=== PATIENT | female | born 1995 | race African-American/Black ===

== ENCOUNTER 2021-01-28 10:17 | Outpatient (RCR) | payer BC, SELFPAY ==
[2021-01-26 10:52] LABS: Beta HCG Quantitative 239.98 mIU/ML
== END 2021-04-26 23:59 | disposition home or self-care (01) ==
LOC: ANHLAB 10:17
PROVIDERS: PCP Family Medicine; Visit Provider Obstetrics & Gynecology
DX: O20.0 Threatened abortion (principal); Z3A.00 Weeks of gestation of pregnancy not specified
CPT/HCPCS: 36415; 84702; 85461

== ENCOUNTER 2021-02-28 13:09 | Outpatient (CLI) | payer BC, SELFPAY ==
[2021-02-28 13:29] LABS: EDCOVIDSCREEN Negative (Negative)
== END 2021-02-28 13:10 | disposition home or self-care (01) ==
LOC: ANHSURGERY 13:10
PROVIDERS: PCP Family Medicine; Visit Provider Obstetrics & Gynecology
DX: Z01.812 Encounter for preprocedural laboratory examination (principal); Z20.822 Contact with and (suspected) exposure to COVID-19
CPT/HCPCS: 87426; C9803

== ENCOUNTER 2021-03-01 01:41 | Day surgery (SDC) | payer BC, SELFPAY ==
[2021-02-28 09:34] VITALS: BMI 23.3
--- NOTE | 2021-03-01 07:32 | WPDHPUPDATE1 ---
History and Physical Update Update Date/Time: 03/01/21 07:32 History and Physical has been reviewed, including an updated exam of the patient. There are NO changes in the patient's condition. Risks, benefits, and alternatives have been discussed and questions answered. Patient agrees to proceed with procedure.
[2021-03-01 07:55] VITALS: BP 127/63; PULSE 70; RESP 14; TEMP 36.3; O2SAT 100; BMI 21.7
[2021-03-01] MEDS: ACETAMINOPHEN 500 MG TABLET 1000 MG PO (08:07)
[2021-03-01] MEDS: LACTATED RINGERS 1,000 ML 30 ML IV CONT (08:15)
--- NOTE | 2021-03-01 09:13 | WPDANESEPPF ---
Anes - Initial Pre Proc Eval Procedure: Operation Date: 03/01/21 09:45 Proposed Procedures p Suction Dilatation and Curettage - Sowmya Snyder MD Date/Time: 03/01/21 09:13 Surgeon: Sowmya Snyder MD Pre Op Diagnosis: missed AB Patient Data Age: 25 Gender: F Height: 1.68 m Weight: 61.2 kg Last Vital Signs Temp 97.3 F L 03/01/21 07:55 Pulse 70 03/01/21 07:55 Resp 14 03/01/21 07:55 BP 127/63 03/01/21 07:55 Pulse Ox 100 03/01/21 07:55 Allergies Allergy/AdvReac Type Severity Reaction Status Date / Time No Known Allergies Allergy Verified 03/01/21 08:05 Home Medications Medication Instructions Recorded Confirmed Type multivitamin,sd-evaj-sctdgzgh 1 tablet PO DAILY 03/01/21 03/01/21 History [Complete Multivitamin] Patient hx anesthesia problems: none Family hx anesthesia problems: none PMFSH Past Medical History Medical History (Updated 03/01/21 @ 09:13 by Carter Cardona MD) GERD (gastroesophageal reflux disease) Family History Family History (Updated 05/21/17 @ 09:32 by DOCTOR UNKNOWN) Grandparent Diabetes mellitus Hypertension Cerebrovascular accident Social History Social History Smoking status: Never smoker Second hand tobacco smoke exposure: No Alcohol intake: current Alcohol use details: TIME TO TIME OCCASIONAL-NONE SINCE BEFORE Substance use: never Living arrangements: with family Spiritual care concerns: No Anes - Eval Final PreProcedure Day of Procedure 03/01/21 09:13 Patient weight: normal Heart: regular rate and rhythm Lungs: clear to auscultation Airway: Mallampati scale class II Neurological: alert and oriented Last oral intake: >/= 8 hours ASA classification: II Emergent: no Anesthetic plan: proceed Anesthesia type and monitoring: general GIVS and standard monitoring Informed Consent: The patient's anesthetic plan and its attendant risks and benefits were discussed with the patient/family/POA. Questions were solicited and answers provided to the satisfaction of the patient/family/POA.
[2021-03-01] MEDS: KETOROLAC 30 MG/ML VIAL (*BKC) IV PUSH (09:36)
[2021-03-01 09:42] VITALS: BP 86/54; PULSE 65; RESP 12; O2SAT 96
--- NOTE | 2021-03-01 09:47 | P.OP_ITS ---
Procedure Note - Detailed Date of Procedure 03/01/21 Pre-op Diagnosis missed AB Post-op Diagnosis same Procedure Performed Suction D&C Surgeon Sowmya Snyder MD Anesthesia MAC Indications missed Findings normal-appearing vulva vagina and cervix to. Moderate amount of products conception within the uterus. 8 cm uterus Description of Procedure the patient was taken the operating room. She was prepped and draped in dorsal lithotomy position after induction of mac anesthesia. A speculum was placed in the vagina. Cervix grasped with tenaculum. The cervix was dilated to about 1 cm Using Ash dilators. A 8. Kinyarwanda curved curette was used to perform suction D&C. The curette was introduced and vacuum was applied. The curette was removed over all surfaces of the intrauterine cavity multiple times. This was done until all the surfaces were clear and had the familiar grainy texture they can be felt through the instrument. A sharp curette was then used to curettage all the surfaces. The suction cup was then reapplied 1 more time to remove any debris. The instruments were removed. The speculum and tenaculum were removed. The patient tolerated the procedure well. She was taken recovery room stable condition. Estimated Blood Loss 50 Drains No Packing No Pathology yes Complications No immediate complications Condition stable Disposition PACU
--- NOTE | 2021-03-01 09:57 | SUR.PHASEII ---
0942 - PT'S IN ROOM
[2021-03-01 10:10] VITALS: BP 90/51; PULSE 56; RESP 20
[2021-03-01 10:30] VITALS: BP 109/65; PULSE 58; RESP 20
[2021-03-01 10:55] VITALS: BP 109/65; PULSE 59; RESP 20
--- NOTE | 2021-03-01 11:01 | SUR.PHASEII ---
0955 - O POSITIVE BLOOD NOTED
== END 2021-03-01 11:01 | disposition home or self-care (01) ==
PROVIDERS: PCP Family Medicine; Visit Provider Obstetrics & Gynecology
PROC: (CPT 59820; principal; 2021-03-01 09:45)
DX: O02.1 Missed abortion (principal); K21.9 Gastro-esophageal reflux disease without esophagitis
CPT/HCPCS: 59820; 88305; A9270; J1885; J2250; J2405; J2704; J3010; J7030; J7120

== ENCOUNTER 2021-10-01 15:13 | Emergency (ER) | payer BC, SELFPAY ==
--- NOTE | ~2021-10-01 | US_ITS ---
EXAMINATION: US OB <=14 wk fetus w TV DATE: 10/01/2021 20:14 INDICATION: Spotting during first trimester . TECHNIQUE: Real-time pelvic ultrasound utilizing both a transvaginal and transabdominal probe was pe rformed. The interpreting radiologist was not present for the study. COMPARISON: None. FINDINGS: The uterus measures 10.6 x 3.7 x 4.9 cm. There is an intrauterine gestational sac. A yolk sac and fe stephanie pole are identified. The crown rump length measures 10 mm, which correlates with an estimated ges tational age of 7 weeks and 1 days. heart motion is identified measuring 144 beats per minute ( bpm) by M-mode Doppler. There are a couple small subchorionic hematomas quantified the gestational sa c, the larger measuring 2.8 x 3.4 x 0.4 cm and the smaller measuring 9 x 5 x 3 mm. The right ovary measures 2.6 x 2.9 x 3.4 cm. 2.8 cm anechoic right ovarian cyst. The left ovary is no t visualized. There is a small amount of anechoic free fluid in the pelvis. IMPRESSION: 1. Single living fetus with heart rate of 144 bpm. 2. Gestational age by ultrasound of 7 weeks 1 day(s) +/- 5 day(s) with ultrasound estimated date of delivery ([facility]) of 05/19/2022. 3. A couple small subchorionic hematomas. Reviewed, dictated and finalized at location A. [employer] [employer] IMPRESSION: 1. Single living fetus with heart rate of 144 bpm. 2. Gestational age by ultrasound of 7 weeks 1 day(s) +/- 5 day(s) with ultraso und estimated date of delivery ([facility]) of 05/19/2022. 3. A couple small subchorionic hematomas.
[2021-10-01 15:19] VITALS: BP 132/88; PULSE 114; RESP 18; TEMP 36.3; O2SAT 100
--- NOTE | 2021-10-01 17:09 | ED.ABDPAIN ---
HPI - Abdominal Pain General Chief Complaint: Abdominal Pain <Franny Yusuf CATHEAD WORKER - Last Filed: 10/01/21 19:37> Stated Complaint: vaginal bleeding <Franny Yusuf APRN - Last Filed: 10/01/21 19:37> Time Seen by Provider: 10/01/21 15:44 <Franny Yusuf APRN - Last Filed: 10/01/21 19:37> Source: patient <Franny Yusuf APRN - Last Filed: 10/01/21 19:37> Mode of arrival: ambulatory <Franny Yusuf CATHEAD WORKER - Last Filed: 10/01/21 19:37> Limitations: no limitations <Franny Yusuf APRN - Last Filed: 10/01/21 19:37> History of Present Illness HPI narrative: 26-year-old female presents today with complaints of lower nausea, abdomen/pelvic pain cramping in nature, back pain, and positive test at home. Patient states she had some brown discharge today on her toilet paper when wiping. Patient denies any bright red bleeding. Patient states she had a previous spontaneous . Patient is a G2, P0 <Franny Yusuf CATHEAD WORKER - Last Filed: 10/01/21 19:37> Related Data Home Medications: Home Medications Medication Instructions Recorded Confirmed multivitamin,cm-rabs-kilhlgqt 1 tablet PO DAILY 03/01/21 03/01/21 [Complete Multivitamin] <Franny Yusuf CATHEAD WORKER - Last Filed: 10/01/21 19:37> Allergies/Adverse Reactions: Allergies Allergy/AdvReac Type Severity Reaction Status Date / Time No Known Allergies Allergy Verified 03/01/21 08:05 <Franny Yusuf [employer] WORKER - Last Filed: 10/01/21 19:37> Review of Systems Review of Systems: CONSTITUTIONAL: Denies fever, chills, or sweats. EYES: Denies visual changes, redness, or discharge. ENT: Denies rhinorrhea, congestion, sore throat, or otalgia. CARDIOVASCULAR: Denies chest pain, palpitations, or edema. RESPIRATORY: Denies cough or dyspnea. GASTROINTESTINAL: Denies abdominal pain, nausea, vomiting, or diarrhea. GENITOURINARY: Denies dysuria or hematuria. Patient with urinary frequency. SKIN: Denies rash or itching. MUSCULOSKELETAL: Denies joint pain, or myalgia. Abdominal cramping and back pain. NEUROLOGIC: Denies headache, numbness, dizziness, or weakness. PSYCHIATRIC: Denies anxiety or depression. <Franny Yusuf APRN - Last Filed: 10/01/21 19:37> PMFSH Past Medical History Medical History: Medical History GERD (gastroesophageal reflux disease) <Franny Yusuf APRN - Last Filed: 10/01/21 19:37> Family History Family History: Family History Grandparent Diabetes mellitus Hypertension Cerebrovascular accident <Franny Yusuf APRN - Last Filed: 10/01/21 19:37> Social History Social History: Social History Smoking status: Never smoker Second hand tobacco smoke exposure: No Alcohol intake: current Alcohol use details: TIME TO TIME OCCASIONAL-NONE SINCE BEFORE Substance use: never Spiritual care concerns: No <Franny Yusuf APRN - Last Filed: 10/01/21 19:37> Exam Narrative: GENERAL: Well-appearing, well-nourished, and in no acute distress. HEAD: Normocephalic, atraumatic. EYES: PERRLA and EOMI. ENT: Nares clear, no rhinorrhea or epistaxis. Mucous membranes moist. Oropharynx without tonsillar hypertrophy exudate or other lesions. Bilateral TMs pearly bocanegra nonbulging NECK: Supple. No adenopathy or masses. No carotid bruits or JVD CHEST: Clear to auscultation. No respiratory distress. No wheezes rales or rhonchi HEART: Regular rate and rhythm. No murmur heard. Normal peripheral pulses. ABDOMEN: Soft, nontender, nondistended, normal active bowel sounds. EXTREMITIES: Normal range of motion. No edema. SKIN: Warm, dry, no rash. NEURO: No focal deficits. Alert and oriented x3. PSYCH: Normal mood and affect. <Franny Yusuf APRN - Last Filed: 10/01/21 19:37> Course Course Emergency Course: [address]
--- NOTE | 2021-10-01 17:20 | PC.NURSE ---
zofran odt given per order
[2021-10-01] MEDS: ONDANSETRON HCL ODT 4 MG TABLET PO (17:35)
[2021-10-01] MEDS: ACETAMINOPHEN 325 MG TABLET 650 MG PO (17:35)
[2021-10-01 17:47] LABS: Add Urine Microscopic? YES; Amorphous Sediment Urine Few; Appearance Urine Clear (Clear); Bilirubin Urine Negative (Negative); Blood Urine Negative (Negative); Color Urine Yellow (Yellow); Glucose Urine UA Negative (Negative); Ketones Urine 1+ mg/dL (Negative); Leukocyte Esterase Ur Negative LEU/UL (Negative); Nitrate Urine Negative (Negative); Protein Urine Negative (Negative); Specific Grav Ur 1.016 (1.001-1.035); Urobilinogen Urine Negative mg/dL (<2.0); WBC Urine 0-3 /hpf
[2021-10-01 18:47] LABS: Basophils Percent Auto 0.3 % (0.2-1.2); Eosinophils Absolute Auto 0.1 K/mm3 (0-0.3); Eosinophils Percent Auto 0.9 % (0-4.4); Hematocrit 37.2 % (37.0-47.0); Hemoglobin 12.4 g/dL (12.0-15.0); Immature Granulocyte Absolute 0.03 K/mm3 (0.00-0.031); Immature Granulocyte Percent A 0.3 % (0-0.5); Lymphocytes Absolute Auto 1.79 K/mm3 (0.9-3.2); Lymphocytes Percent Auto 18.1 % (18.3-44.2); Mean Corpuscular HGB Conc 33.3 g/dl (32-36); Mean Corpuscular Hemoglobin 29.5 pg (26-34); Mean Corpuscular Volume 88.4 fl (80-100); Mean Platelet Volume 9.2 fl (7.4-10.4); Monocytes Absolute Auto 0.7 K/mm3 (0.1-0.6); Neutrophils Absolute Auto 7.2 K/mm3 (1.3-6.7); Neutrophils Percent Auto 73.4 % (45.5-73.1); Platelet Count Result 220 k/mm3 (150-375); Red Blood Count 4.21 M/mm3 (4.2-5.4); Red Cell Distribution Width 12.8 % (11.5-14.5); White Blood Count 9.9 K/mm3 (4.5-10.0)
--- NOTE | 2021-10-01 19:19 | PC.NURSE ---
Patient report received from CARMELA Lenz. This RN assumed care of patient at this time.
--- NOTE | 2021-10-01 19:49 | PC.NURSE ---
Patient taken to US via w/c.
[2021-10-01 20:05] LABS: Alanine Aminotransferase 10 U/L (4-35); Albumin Level 4.5 g/dL (3.5-5.1); Alkaline Phosphatase 46 U/L (38-126); Anion Gap 9 mmol/L (8-16); Aspartate Amino Transferase 24 U/L (14-36); Bilirubin,Total 0.2 mg/dL (0.2-1.3); Blood Urea Nitrogen 6 mg/dL (7-17); Calcium 9.5 mg/dL (8.4-10.2); Carbon Dioxide 23 mmol/L (22-30); Chloride 104 mmol/L (98-107); Estimated CRCL calculation 113 ml/min; Estimated Glomerular Filt Rate > 60; Glucose 93 mg/dL (65-110); Lipase 50 U/L (23-300); Potassium 3.9 mmol/L (3.4-5.0); Sodium 136 mmol/L (137-145)
[2021-10-01 20:10] VITALS: BP 135/82; PULSE 82; RESP 17; O2SAT 98
[2021-10-01 20:14] VITALS: TEMP 36.3
== END 2021-10-01 20:49 | disposition home or self-care (01) ==
PROVIDERS: Nurse Practitioner Family; Emergency Provider Nurse Practitioner Family; PCP Family Medicine
DX: O20.9 Hemorrhage in early pregnancy, unspecified (principal); O99.611 Diseases of the digestive system complicating pregnancy, first trimester; K21.9 Gastro-esophageal reflux disease without esophagitis; Z3A.01 Less than 8 weeks gestation of pregnancy
CPT/HCPCS: 36415; 76801; 76817; 80053; 81001; 81025; 83690; 84702; 85025; 99284; A9270

== ENCOUNTER 2022-04-15 20:22 | Observation (INO) | payer BC, SELFPAY ==
--- NOTE | 2022-04-15 20:22 | OBADM ---
This patient, Anai Harding, admitted to the OB room OB Post 117 for observation. Patient/family oriented to hospital policies and general routines including ID bracelet, bed and alarms, visiting hours, pain management, procedures, bathroom and other care routines, personal items, smoking policy, room service/diet, and visiting hours. Patient/Family are encouraged to report perceived risks to care and to ask questions if they do not understand what they are told or what they should do.
[2022-04-15 20:46] VITALS: BMI 25.9
[2022-04-15 20:48] VITALS: BP 120/69; PULSE 99
[2022-04-15] MEDS: DEXTROSE 5%/LACTATED RINGERS 1,000 ML 999 ML IV CONT (21:33)
[2022-04-15 22:05] LABS: Appearance Urine Clear (Clear); Bilirubin Urine Negative (Negative); Blood Urine Trace-lysed (Negative); Color Urine Yellow (Yellow); Glucose Urine UA Negative (Negative); Ketones Urine Negative (Negative); Leukocyte Esterase Ur Trace LEU/UL (Negative); Nitrate Urine Negative (Negative); Protein Urine Negative (Negative); Specific Grav Ur 1.015 (1.001-1.035); Urobilinogen Urine 0.2 mg/dL (<2.0)
[2022-04-15 22:18] LABS: Add Urine Microscopic? YES; RBC Urine None seen /hpf (0-2); WBC Urine 0-3 /hpf
[2022-04-15 22:19] LABS: Bacteria Urine None seen /hpf; Squamous Epithelial Cell Urine Few /hpf (Few)
--- NOTE | 2022-04-15 22:25 | PC.NURSE ---
Discharge instructions reviewed with patient. Patient educated on labor signs and symptoms. Patient follow-up instructions reviewed with patient. Kick counts reviewed with patient. Patient states understanding of all discharge instructions and follow-up instructions.
--- NOTE | 2022-04-18 18:09 | P.PNOB_ITS ---
OB - Triage/Final Diagnosis Visit Information Date of evaluation: 04/15/22 Reason for evaluation: threatened labor Comments/Additional reasons for admission: I have assessed the risk for this patient, Anai Harding, and determined that she would benefit from observation care. Evaluation Laboratory results: Laboratory Tests 04/15/22 21:45 Urine Color Yellow Urine Appearance Clear Urine pH 7.0 Ur Specific [place] 1.015 Urine Protein Negative Urine Glucose (UA) Negative Urine Ketones Negative Ur Blood (Man) Trace-lysed Urine Nitrate Negative Urine Bilirubin Negative Urine Urobilinogen 0.2 Leukocyte Esterase Rfl Trace H Urine RBC None seen Urine WBC 0-3 Ur Squamous Epith Cells Few Urine Bacteria None seen
== END 2022-04-15 22:26 | disposition home or self-care (01) ==
PROVIDERS: Advanced Practice Midwife; Admitting Provider Obstetrics & Gynecology; PCP Family Medicine; Visit Provider Obstetrics & Gynecology
DX: O47.03 False labor before 37 completed weeks of gestation, third trimester (principal); Z3A.35 35 weeks gestation of pregnancy
CPT/HCPCS: 81001; G0378; G0379; J7121

== ENCOUNTER 2022-04-30 06:14 | Inpatient (IN) | payer BC, SELFPAY ==
[2022-04-30] VITALS (21 sets, daily range): BP systolic 99–135; BP diastolic 60–105; PULSE 73–111; RESP 20; TEMP 36.3–37; O2SAT 100; BMI 26.1
--- OUTSIDE RECORDS SUMMARY | 2022-04-30 06:22 | XMS_ITS | Encounter Summary ---
:1995 Author Care Team Providers Name Role Phone Kathleen Raphael Primary Care Provider [phone] Reason for Visit OB visit OB [id number] EDC 05/19/2022 LMP 08/12/2021 Assessment and Plan Assessment Note Patient is ___weeks . Discussed plan. 1. Routine care Discussion Note: None recorded.Patient educational handouts: No information available. Plan of Care Reminders Provider Appointments Ob Routine 05/18/2022 11:00AM Zita reid CNM Lab None recorded. ? ? Referral None recorded. ? ? Procedures None recorded. ? ? Surgeries None recorded. ? ? Imaging None recorded. ? ? Medications Name Start Date ? ? acetaminophen 300 mg-codeine 30 mg tablet ? ijdprtscum-yhcuifccgapmr-xtukpjrx 50 mg-325 mg-40 mg t ablet ? Take 1 tablet every 4 hours by oral route as needed. metoclopramide 5 mg tablet ? Take 1 tablet 4 times a day by oral route. ondansetron HCl 4 mg tablet ? Take one tablet by oral route every 4-6 hours as need ed ? ursodiol 300 mg capsule ? Take 1 capsule twice a day by oral route. Medications Administered None recorded. Vitals Height BMI 5 ft 5 in 27.5 kg/m2 Results Lab Results None recorded. Allergies Code Code System Name Reaction Severity Onset NKDA ? ? ? Problems Name Status Onset Date Source ? Active 11/07/2021 ? Headache Disorder Active ? ? Procedures
--- OUTSIDE RECORDS SUMMARY | 2022-04-30 06:22 | XMS_ITS | Encounter Summary ---
:1995 Author Care Team Providers Name Role Phone Kathleen Raphael Primary Care Provider [phone] Reason for Visit None recorded. Assessment and Plan 1. Cholestasis of ? non-stress test Discussion Note: None recorded.Patient educational handouts: No information available. Plan of Care Reminders Provider Appointments Ob Routine 05/18/2022 11:00AM Zita reid CNM Lab None recorded. ? ? Referral None recorded. ? ? Procedures None recorded. ? ? Surgeries None recorded. ? ? Imaging Non-stress Test 04/25/2022 [place] Medications Name Start Date ? ? acetaminophen 300 mg-codeine 30 mg tablet ? lmykndgyxq-icycoezukcjdm-ijaigcdc 50 mg-325 mg-40 mg t ablet ? [...] oral route. Medications Administered None recorded. Vitals None recorded. Results Lab Results None recorded. Allergies Code Code System Name Reaction Severity Onset NKDA ? ? ? Problems Name Status Onset Date Source ? Active 11/07/2021 ? Headache Disorder Active ? ? Procedures Date Name Performed by ? 03/01/2021 Dilation & Curettage (Surg) Information not available 04/11/2022 Non-stress Test [place]
--- OUTSIDE RECORDS SUMMARY | 2022-04-30 06:22 | XMS_ITS | Encounter Summary ---
:1995 Author Care Team Providers Name Role Phone Kathleen Raphael Primary Care Provider [phone] Reason for Visit None recorded. Assessment and Plan 1. Cholestasis of ? non-stress test Discussion Note: None recorded.Patient educational handouts: No information available. Plan of Care Reminders Provider Appointments Ob Routine 05/18/2022 11:00AM Zita reid CNM Lab None recorded. ? ? Referral None recorded. ? ? Procedures None recorded. ? ? Surgeries None recorded. ? ? Imaging Non-stress Test 04/20/2022 [place] Medications Name Start Date ? ? acetaminophen 300 mg-codeine 30 mg tablet ? wtcyflbfud-exnqodegpeiks-abayomue 50 mg-325 mg-40 mg t ablet ? [...] (Surg) Information not available 04/11/2022 Non-stress Test [place]
--- OUTSIDE RECORDS SUMMARY | 2022-04-30 06:22 | XMS_ITS | Encounter Summary ---
:1995 Author Care Team Providers Name Role Phone Kathleen Raphael Primary Care Provider [phone] Reason for Visit None recorded. Assessment and Plan 1. Cholestasis of ? non-stress test Discussion Note: None recorded.Patient educational handouts: No information available. Plan of Care Reminders Provider Appointments Ob Routine 05/18/2022 11:00AM Zita reid CNM Lab None recorded. ? ? Referral None recorded. ? ? Procedures None recorded. ? ? Surgeries None recorded. ? ? Imaging Non-stress Test 04/18/2022 [place] Medications Name Start Date ? ? acetaminophen 300 mg-codeine 30 mg tablet ? ufiyxsolij-fdayauojjxwia-fwullgps 50 mg-325 mg-40 mg t ablet ? [...] (Surg) Information not available 04/11/2022 Non-stress Test [place]
--- OUTSIDE RECORDS SUMMARY | 2022-04-30 06:22 | XMS_ITS ---
:1995 Author Care Team Providers Name Role Phone NAVI RUBIN Primary Care Provider [phone] Allergies Code Code System Name Reaction Severity Status Onset NKDA ? Medications Name Status Start Date Stop Date ? ? acetaminophen 300 mg-codeine 30 mg tablet Active ? Not available amoxicillin 500 mg capsule Completed ? 02/22 amoxicillin 875 mg tablet Completed ? 2021 azithromycin 250 mg tablet Completed ? 10/10 benzonatate 200 mg capsule Completed ? 05/24 nvvuravscf-udepsacvgfbtn-pngaldtj 50 mg-325 Active ? Not available mg-40 mg tablet clomiphene citrate 50 mg tablet Completed 01/29/2018 11/10/2018 take 1 tablet by oral route every day dexamethasone 1.5 mg tablet Completed ? 05/12 Fioricet 50 mg-300 mg-40 mg capsule Unknown ? Not available Take 1 capsule every 4 hours by oral route as needed. fluticasone propionate 50 mcg/actuation nasal Completed ? 10/10/2021 spray,suspension Loestrin Fe 1.5/30 (28-Day) 1.5 mg-30 mcg (21)/75 mg (7) tab let Active 10/30/2019 Not available take 1 tablet by oral route every day medroxyprogesterone 150 mg/mL intramuscular Completed ? 05/24/2020 suspension Depo-Provera 150 mg/mL intramuscular syringe Active Not available inject 1 milliliter by intramuscular route every 3 months methylprednisolone 4 mg tablets in a dose pack Completed ? 10/10/2021 metoclopramide 5 mg tablet Active ? Not a vailable norethindrone acetate 5 mg tablet Completed 01/29/2018 01/29/2018 take1 tablet by oral route every day for 10 consecutive day s (of each month).
--- OUTSIDE RECORDS SUMMARY | 2022-04-30 06:22 | XMS_ITS | Encounter Summary ---
:1995 Author Care Team Providers Name Role Phone Kathleen Raphael Primary Care Provider [phone] Reason for Visit OB visit OB [id number] EDC 05/19/2022 LMP 08/12/2021 Assessment and Plan Assessment Note Patient is _36__weeks . Discuss ed plan. 1. Routine care Discussion Note: None [...] acetaminophen 300 mg-codeine 30 mg tablet ? qauwwjdzjs-bamosjfbunxhx-lqflbjuy 50 mg-325 mg-40 mg t ablet ? [...] route. Medications Administered None recorded. Vitals Height Weight BMI Blood Pressure 5 ft 5 in 163 lbs 27.1 kg/m2 111/73 mm[Hg] Results Lab Results None recorded. Allergies Code Code System Name Reaction Severity Onset NKDA ? ? ? Problems Name Status Onset Date Source ? Active 11/07/2021 ? Headache Disorder Active ? ?
--- OUTSIDE RECORDS SUMMARY | 2022-04-30 06:22 | XMS_ITS | Encounter Summary ---
:1995 Author Care Team Providers Name Role Phone Kathleen Raphael Primary Care Provider [phone] Reason for Visit None recorded. Assessment and Plan 1. Cholestasis of ? US, obstetric, biophysical profile Discussion Note: None recorded.Patient educational handouts: No information available. Plan of Care Reminders Provider Appointments Ob Routine 05/18/2022 Zita Licona CNM 11:00AM Lab None recorded. ? ? Referral None recorded. ? ? Procedures None recorded. ? ? Surgeries None recorded. ? ? Imaging US, Obstetric, Biophysical 04/18/2022 [facility] Profile Medications Name Start Date ? ? acetaminophen 300 mg-codeine 30 mg tablet ? clcpqehtig-rbumuwirtdvvw-mkwxnizw 50 mg-325 mg-40 mg t ablet ? [...]
--- OUTSIDE RECORDS SUMMARY | 2022-04-30 06:22 | XMS_ITS | Encounter Summary ---
:1995 Author Care Team Providers Name Role Phone Kathleen Raphael Primary Care Provider [phone] Reason for Visit None recorded. Assessment and Plan 1. condition affecting obstetrica l care of mother ? US, obstetric, biophysical profile Discussion Note: None recorded.Patient educational handouts: No information available. Plan of Care Reminders Provider Appointments Ob Routine 05/18/2022 Zita Licona CNM 11:00AM Lab None recorded. ? ? Referral None recorded. ? ? Procedures None recorded. ? ? Surgeries None recorded. ? ? Imaging US, Obstetric, Biophysical 04/11/2022 [facility] Profile Medications Name Start Date ? ? acetaminophen 300 mg-codeine 30 mg tablet ? uraznjxrys-esdoyshnnykug-ynfxakbe 50 mg-325 mg-40 mg t ablet ? [...]
--- OUTSIDE RECORDS SUMMARY | 2022-04-30 06:22 | XMS_ITS | Encounter Summary ---
:1995 Author Care Team Providers Name Role Phone Kathleen Raphael Primary Care Provider [phone] Reason for Visit None recorded. Assessment and Plan 1. Cholestasis of ? US, obstetric, follow-up ? US, obstetric, biophysical profile + non-stress test Discussion Note: None recorded.Patient educational handouts: No information available. Plan of Care Reminders Provider Appointments Ob Routine 05/18/2022 Zita Licona CNM 11:00AM Lab None recorded. ? ? Referral None recorded. ? ? Procedures None recorded. ? ? Surgeries None recorded. ? ? Imaging US, Obstetric, Follow-up 04/25/2022 [place] ? US, Obstetric, Biophysical 04/25/2022 [place] Profile + Non-stress Test Medications Name Start Date ? ? acetaminophen 300 mg-codeine 30 mg tablet ? xebmkbuvay-dsmgylsytcneg-hdechhgc 50 mg-325 mg-40 mg t ablet ? [...]
--- OUTSIDE RECORDS SUMMARY | 2022-04-30 06:23 | XMS_ITS | Encounter Summary ---
:1995 Author Care Team Providers Name Role Phone Kathleen Raphael Primary Care Provider [phone] Reason for Visit OB visit Assessment and Plan 1. Routine care Discussion Note: None recorded.Patient educational handouts: No information available. Plan of Care Reminders Provider Appointments Ob Routine 05/18/2022 11:00AM Zita reid CNM Lab None recorded. ? ? Referral None recorded. ? ? Procedures None recorded. ? ? Surgeries None recorded. ? ? Imaging None recorded. ? ? Medications Name Start Date ? ? acetaminophen 300 mg-codeine 30 mg tablet ? ahgtsjbpmh-vlcznffyylcou-wncnavvf 50 mg-325 mg-40 mg t ablet ? [...] BMI Blood Pressure 5 ft 5 in 149 lbs 24.8 kg/m2 104/65 mm[Hg] Results Lab Results None recorded. Allergies Code Code System Name Reaction Severity Onset NKDA ? ? ? Problems Name Status Onset Date Source ? Active 11/07/2021 ? Headache Disorder Active ? ? Procedures Date Name Performed by ? 03/01/2021 Dilation & Curettage (Surg) Information not available 01/04/2022 US,
--- OUTSIDE RECORDS SUMMARY | 2022-04-30 06:23 | XMS_ITS | Encounter Summary ---
:1995 Author Care Team Providers Name Role Phone Kathleen Raphael Primary Care Provider [phone] Reason for Visit None recorded. Assessment and Plan 1. Uterine size for dates discrepancy ? US, obstetric, follow-up Discussion Note: None recorded.Patient educational handouts: No information available. Plan of Care Reminders Provider Appointments Ob Routine 05/18/2022 11:00AM Zita reid CNM Lab None recorded. ? ? Referral None recorded. ? ? Procedures None recorded. ? ? Surgeries None recorded. ? ? Imaging US, Obstetric, Follow-up 03/13/2022 [facility] Medications Name Start Date ? ? acetaminophen 300 mg-codeine 30 mg tablet ? cmfwbhngpt-csbcaypnkkkzq-frpmafic 50 mg-325 mg-40 mg t ablet ? [...] Dilation & Curettage (Surg) Information not available 03/13
--- OUTSIDE RECORDS SUMMARY | 2022-04-30 06:23 | XMS_ITS | Encounter Summary ---
:1995 Author Care Team Providers Name Role Phone Kathleen Raphael Primary Care Provider [phone] Reason for Visit OB visit OB [id number] EDC 05/19/2022 LMP 08/12/2021 Assessment and Plan Assessment Note Patient is _34__weeks . Discuss ed plan. 1. Routine care 2. Pruritus of skin ? bile acids, total, serum ? CMP, serum or plasma ? ursodiol 300 mg capsule Discussion Note: None recorded.Patient educational handouts: No information available. Plan of Care Reminders Provider Appointments Ob Routine 05/18/2022 Zita Licona CNM 11:00AM Lab Bile Acids, Total, Serum 04/11/2022 [facility] (Lab) ? CMP, Serum or Plasma 04/11/2022 [facility] (Lab) Referral None recorded. ? ? Procedures None recorded. ? ? Surgeries None recorded. ? ? Imaging None recorded. ? ? Medications Name Start Date ? ? acetaminophen 300 mg-codeine 30 mg tablet ? ppdwewyfvz-przasjzgsdnfa-bvnbsiuu 50 mg-325 mg-40 mg t ablet ? [...] BMI Blood Pressure 5 ft 5 in 162 lbs
--- OUTSIDE RECORDS SUMMARY | 2022-04-30 06:23 | XMS_ITS | Encounter Summary ---
:1995 Author Care Team Providers Name Role Phone Kathleen Raphael Primary Care Provider [phone] Reason for Visit OB visit OB [id number] EDC 05/19/2022 LMP 08/12/2021 Assessment and Plan Assessment Note Patient is __32_weeks . Discuss ed plan. 1. Routine care [...] acetaminophen 300 mg-codeine 30 mg tablet ? zkpicqjkzz-cszylxzkpcrle-pnzfroyk 50 mg-325 mg-40 mg t ablet ? [...] BMI Blood Pressure 5 ft 5 in 161 lbs 26.8 kg/m2 110/69 mm[Hg] Results Lab Results None recorded. Allergies Code Code System Name Reaction Severity Onset NKDA ? ? ? Problems Name Status Onset Date Source ? Active 11/07/2021 ? Headache Disorder Active ? ?
--- OUTSIDE RECORDS SUMMARY | 2022-04-30 06:23 | XMS_ITS | Encounter Summary ---
:1995 Author Care Team Providers Name Role Phone Kathleen Raphael Primary Care Provider [phone] Reason for Visit None recorded. Assessment and Plan 1. Cholestasis of ? non-stress test Discussion Note: None recorded.Patient educational handouts: No information available. Plan of Care Reminders Provider Appointments Ob Routine 05/18/2022 11:00AM Zita reid CNM Lab None recorded. ? ? Referral None recorded. ? ? Procedures None recorded. ? ? Surgeries None recorded. ? ? Imaging Non-stress Test 04/11/2022 [place] Medications Name Start Date ? ? acetaminophen 300 mg-codeine 30 mg tablet ? zcyscapztq-opsotgdppqrtz-wtuzvfkb 50 mg-325 mg-40 mg t ablet ? [...] Dilation & Curettage (Surg) Information not available 03/13/2022 US, Obstetric, Follow-up [place]
--- OUTSIDE RECORDS SUMMARY | 2022-04-30 06:23 | XMS_ITS | Encounter Summary ---
:1995 Author Care Team Providers Name Role Phone Kathleen Raphael Primary Care Provider [phone] Reason for Visit None recorded. Assessment and Plan 1. screening ? US, obstetric, follow-up Discussion Note: None recorded.Patient educational handouts: No information available. Plan of Care Reminders Provider Appointments Ob Routine 05/18/2022 11:00AM Zita reid CNM Lab None recorded. ? ? Referral None recorded. ? ? Procedures None recorded. ? ? Surgeries None recorded. ? ? Imaging US, Obstetric, Follow-up 01/29/2022 Denisha james Medications Name Start Date ? ? acetaminophen 300 mg-codeine 30 mg tablet ? ltvjishvvf-hianuqsizhidd-gpauklae 50 mg-325 mg-40 mg t ablet ? [...] & Curettage (Surg) Information not available 01/04/2022 [facility]
--- OUTSIDE RECORDS SUMMARY | 2022-04-30 06:23 | XMS_ITS ---
:1995 Author Care Team Providers Name Role Phone NAVI RUBIN OTHER [phone] Allergies Code Code System Name Reaction Severity Status Onset NKDA ? Medications Name Status Start Date Stop Date ? ? azithromycin 250 mg tablet Active ? Not a vailable benzonatate 100 mg capsule Unknown ? Not a vailable TAKE ONE CAPSULE BY MOUTH 3 TIMES A DAY benzonatate 200 mg capsule Active ? Not a vailable dexamethasone 1.5 mg tablet Active ? Not available fluticasone propionate 50 mcg/actuation nasal Active ? Not available spray,suspension ibuprofen 600 mg tablet Completed ? 05/07/20 17 TAKE 1 TABLET BY MOUTH EVERY 6 HOURS NEEDED FOR PAIN Tru Fe 1.5/30 (28) 1.5 mg-30 mcg (21)/75 mg (7) tablet Active ? Not available levofloxacin 500 mg tablet Completed ? 05/07 TAKE 1 TABLET BY MOUTH QD FOR 7 DAYS Lexapro 10 mg tablet Unknown ? Not availab le Take 1 tablet every day by oral route. medroxyprogesterone 150 mg/mL intramuscular suspension Active ? Not available medroxyprogesterone 150 mg/mL intramuscular syringe Active ? Not available methylphenidate 10 mg tablet Completed ? 04/2018 TK 1 T PO BID methylprednisolone 4 mg tablets in a dose pack Active ? Not available nystatin 100,000 unit/gram topical cream Completed ? 05/07/2017 APPLY TWICE A DAY TO AFFECTED AREA nystatin-triamcinolone 100,000 unit/g-0.1 % topical cream Unknow n ? Not available APPLY TWICE DAILY DIRECTED ondansetron 4 mg disintegrating tablet Active ? Not available Active ?
--- OUTSIDE RECORDS SUMMARY | 2022-04-30 06:23 | XMS_ITS | Encounter Summary ---
:1995 Author Care Team Providers Name Role Phone Katlheen Raphael Primary Care Provider [phone] Reason for Visit OB visit OB [id number] EDC 05/19/2022 LMP 02/09/2019 Assessment and Plan Assessment Note Patient is _28__weeks . Discuss ed plan. 1. Routine care [...] acetaminophen 300 mg-codeine 30 mg tablet ? wcrhsrpzxt-pyvepolctduoi-dfyowcql 50 mg-325 mg-40 mg t ablet ? [...] BMI Blood Pressure 5 ft 5 in 156 lbs 26 kg/m2 109/72 mm[Hg] Results Lab Results None recorded. Allergies Code Code System Name Reaction Severity Onset NKDA ? ? ? Problems Name Status Onset Date Source ? Active 11/07/2021 ? Headache Disorder Active ? ?
--- OUTSIDE RECORDS SUMMARY | 2022-04-30 06:23 | XMS_ITS | Encounter Summary ---
:1995 Author Care Team Providers Name Role Phone Kathleen Raphael Primary Care Provider [phone] Reason for Visit OB visit OB [id number] EDC 05/19/2022 LMP 08/12/2021 Assessment and Plan Assessment Note Patient is _30__weeks . Discuss ed plan. 1. Routine care [...] acetaminophen 300 mg-codeine 30 mg tablet ? iuiotqdmql-ifuiugceupwiv-ygxfzybo 50 mg-325 mg-40 mg t ablet ? [...] BMI Blood Pressure 5 ft 5 in 157 lbs 26.1 kg/m2 107/68 mm[Hg] Results Lab Results None recorded. Allergies Code Code System Name Reaction Severity Onset NKDA ? ? ? Problems Name Status Onset Date Source ? Active 11/07/2021 ? Headache Disorder Active ? ?
--- OUTSIDE RECORDS SUMMARY | 2022-04-30 06:23 | XMS_ITS ---
:1995 Author Care Team Providers Name Role Phone Kathleen Gtz Primary Care Provider Unavailable Allergies Code Code System Name Reaction Severity Status Onset NKDA ? Notes: Some allergies listed in Docume nt: #[id number] could not be added to this patient's chart. Please review this docu ment and add these allergies to the patient's chart manually as needed. Medications Name Status Start Date Stop Date ? ? amoxicillin 500 mg capsule Completed ? 11/02 amoxicillin 875 mg tablet Completed ? 2021 azithromycin 250 mg tablet Completed ? 11/02 benzonatate 100 mg capsule Unknown ? Not a vailable TAKE ONE CAPSULE BY MOUTH 3 TIMES A DAY benzonatate 200 mg capsule Completed ? 11/02 dexamethasone 1.5 mg tablet Active ? Not available fluticasone propionate 50 mcg/actuation nasal Active ? Not available spray,suspension ibuprofen 600 mg tablet Completed ? 05/07/20 17 TAKE 1 TABLET BY MOUTH EVERY 6 HOURS NEEDED FOR PAIN Tru Fe 1.5/30 (28) 1.5 mg-30 mcg (21)/75 mg Active ? Not available (7) tablet levofloxacin 500 mg tablet Completed ? 05/07 TAKE 1 TABLET BY MOUTH QD FOR 7 DAYS Lexapro 10 mg tablet Unknown ? Not availab le Take 1 tablet every day by oral route. medroxyprogesterone 150 mg/mL intramuscular Active ? Not available suspension medroxyprogesterone 150 mg/mL intramuscular Active ? Not available syringe methylphenidate 10 mg tablet Completed ? 04/2018 TK 1 T PO BID
[2022-04-30 07:07] LABS: Basophils Percent Auto 0.4 % (0.2-1.2); Eosinophils Absolute Auto 0.1 K/mm3 (0-0.3); Eosinophils Percent Auto 1.1 % (0-4.4); Hematocrit 31.2 % (37.0-47.0); Hemoglobin 10.1 g/dL (12.0-15.0); Immature Granulocyte Absolute 0.04 K/mm3 (0.00-0.031); Immature Granulocyte Percent A 0.5 % (0-0.5); Lymphocytes Absolute Auto 1.75 K/mm3 (0.9-3.2); Lymphocytes Percent Auto 22.1 % (18.3-44.2); Mean Corpuscular HGB Conc 32.4 g/dl (32-36); Mean Corpuscular Hemoglobin 27.5 pg (26-34); Mean Platelet Volume 10.7 fl (7.4-10.4); Monocytes Absolute Auto 0.8 K/mm3 (0.1-0.6); Monocytes Percent Auto 9.5 % (2.6-8.5); Neutrophils Absolute Auto 5.3 K/mm3 (1.3-6.7); Neutrophils Percent Auto 66.4 % (45.5-73.1); Platelet Count Result 243 k/mm3 (150-375); Red Blood Count 3.67 M/mm3 (4.2-5.4); Red Cell Distribution Width 12.7 % (11.5-14.5); White Blood Count 7.9 K/mm3 (4.5-10.0)
[2022-04-30] MEDS: AMPICILLIN 2 GM/NS 100 ML 2 GM/100 ML BAG IVPB (07:17)
[2022-04-30] MEDS: LACTATED RINGERS 1,000 ML 125 ML IV CONT (07:18)
[2022-04-30] MEDS: OXYTOCIN 30 UNITS/NS 500 ML 30 UNITS/500 ML BAG IV CONT (07:55)
--- NOTE | 2022-04-30 07:57 | WPDOBADMIT ---
Obstetrics - Admit Note Admission Note: record reviewed. No pertinent additions to the history and/or any subsequent changes in the physical findings that are not consistent with the expected course of the were found. IOL, cholestasis, SVE /-2, AROM moderate amount of clear odorless fluid Additions to the history and/or subsequent changes in the physical findings follow. None.
[2022-04-30] MEDS: AMPICILLIN 1 GM/NS 50 ML 1 GM/50 ML BAG IVPB (11:11)
[2022-04-30] MEDS: fentaNYL CITRATE INJ (*CRX) 100 MCG/2 ML VIAL 50 MCG IV PUSH (13:32)
--- NOTE | 2022-04-30 15:14 | P.PCNOB_ITS ---
OB - Delivery Note Procedure Delivery date: 04/30/22 Procedure: Events: Other (cholestasis) Induction method: AROM and Per Pitocin Protocol Delivery augmentation: Rupture of Membranes and Pitocin Delivery monitor: External FHT and External Uterine Laceration Description: Perineal - 1st Degree Delivery repair: other (none) Specimen: Yes Quantitative Blood Loss (ml): 200 Anesthesia type: None Disposition: Floor Narrative: mom and baby stable and doing skin to skin [place] Baby Date of : 04/30/22 Time of : 14:57 Weeks of gestation at delivery: 37 Weight (pounds): 5 Weight (ounces): 6 presentation: vertex position: Left Occiput Anterior Placenta delivery description: Spontaneous Cord Vessel Description: 3 Vessels score one minute: 9 score five minutes: 9
[2022-04-30] MEDS: OXYTOCIN 30 UNITS/NS 500 ML 30 UNITS/500 ML BAG 125 UNITS IV CONT (15:30)
--- NOTE | 2022-04-30 17:52 | PC.NURSE ---
Patient transferred to post room # via ([id number] ). Support person present. Oriented to unit, room, information board, rooming in, admission packet and security measures. Patient verbalizes understanding.
[2022-04-30] MEDS: IBUPROFEN 600 MG TABLET PO (21:19)
[2022-05-01 00:55] VITALS: BP 111/55; PULSE 79; RESP 18; TEMP 36.9; O2SAT 97
[2022-05-01] MEDS: IBUPROFEN 600 MG TABLET PO ×4 (03:09→22:01)
[2022-05-01 04:40] VITALS: BP 112/74; PULSE 88; RESP 18; TEMP 36.5; O2SAT 96
[2022-05-01 06:29] LABS: Hematocrit 27.4 % (37.0-47.0); Hemoglobin 8.9 g/dL (12.0-15.0)
[2022-05-01 07:15] VITALS: BP 113/73; PULSE 69; RESP 16; TEMP 36.5; O2SAT 100
[2022-05-01] MEDS: LANOLIN (LANSINOH) 7.5 GM CREAM 1 APPLIC TOPICAL (09:35)
[2022-05-01] MEDS: MULTIVIT/MIN/PREN/FOL AC/IRON TABLET 1 TAB PO (09:35)
[2022-05-01] MEDS: DOCUSATE SODIUM 100 MG CAPSULE PO ×2 (09:50→16:07)
[2022-05-01] MEDS: POLYSACCHARIDE IRON COMPLEX 150 MG CAPSULE PO ×2 (09:50→16:07)
--- NOTE | 2022-05-01 09:53 | PM.OBPNVD ---
OB - PN: Subj Subjective Date/time seen: 05/01/22 09:53 Patient comments: no complaints, pain well controlled, incisional pain, tolerating diet and flatus present OB - PN: Obj Data Labs CBC & Chem 7: 05/01/22 05:47 Labs: Laboratory Results - last 24 hr 05/01/22 05:47 Hgb 8.9 L Hct 27.4 L OB - PN A/P Plan day: 1 Plan: routine care Comments: No problems, routine care Time Spent With Patient Time: Total time spent is greater than 50% in coordination of care (as documented) at patient's floor/unit and/or counseling patient: Exam Const: General: comfortable, no acute distress and alert Resp: Effort & Inspection: normal respiratory effort Auscultation: no crackles, no rales and no rhonchi Cardio: Rate: regular rate Heart sounds: no click, no murmurs and no rubs GI: Inspection: non-distended GI Palp: No Tenderness to palpation present (GI) Auscultation: normal bowel sounds Other: Incision - CDI Extrem: General: normal to inspection, no pedal edema and no calf tenderness
[2022-05-01 10:39] LABS: Rapid Plasma Reagin Non-Reactive (NonReactive)
[2022-05-01 12:06] VITALS: BP 124/73; PULSE 98; RESP 16; TEMP 36.6; O2SAT 100
--- NOTE | 2022-05-01 14:58 | PC.NURSE ---
[id number] Introductions were made, then consulted with patient to assess needs related to . Mother led the conversation with her?plans to feed?her infant and the?experience so far. Resources provided for inpatient and outpatient services using a resource guide and mom/baby guide. Mother voiced understanding of information and requests assistance. Mother works well with her infant with encouragement and education. Encouraged understanding of the benefits of skin to skin (unwrapping and placing vertically on her chest), responsive feeding and how to watch for early feeding signs, frequency of feeding on demand about every 8-12 times in 24 hours (every 2-3 hours), milk production, duration of feeding, signs of adequate intake/output, stimulating infant with massage touch. Infant is skin to skin on mother and mother is eating breakfast and stimulating with touch. Mother voiced understanding of calling for a latch assessment and assistance. 0955 and how to record on the feeding sheet. Reviewed positioning and ear, shoulder, hip alignment, supporting the breast, asymmetrical latch (off-center), and leading with the chin with a big open side gape. Infant latched optimally to the breast for 5 minutes effective with no pain to mother. Education given to mother of how to visualize suck/swallow ratios and drinking at the breast. Nipple care reviewed with optimal latch and good positioning. Reviewed good handwashing when or touching the breast/nipples to prevent infection. Resources used to facilitate learning were used with the mom and baby guide. Mother voiced understanding of responsive feedings, stimulating with skin to skin, hand expressed colostrum, touch, talking to infant to encourage if it has been 2 -3 hours since the start of the last , to call if does not latch or there is discomfort with . Reported to the primary RN.
[2022-05-01 17:45] VITALS: BP 128/70; PULSE 78; RESP 18; TEMP 37; O2SAT 100
[2022-05-01 20:00] VITALS: BP 117/77; PULSE 86; RESP 16; TEMP 36.7
[2022-05-01] MEDS: ACETAMINOPHEN 325 MG TABLET 650 MG PO (22:00)
[2022-05-02] MEDS: ACETAMINOPHEN 325 MG TABLET 650 MG PO (05:24)
[2022-05-02] MEDS: IBUPROFEN 600 MG TABLET PO (05:25)
--- NOTE | 2022-05-02 06:33 | PM.OBPNVD ---
OB - PN: Subj Subjective Date/time seen: 05/02/22 06:33 s/p vaginal delivery day 2 OB - PN: Obj Data Labs CBC & Chem 7: 05/01/22 05:47 Labs: Laboratory Results - last 24 hr 04/30/22 05/01/22 06:56 05:47 Hgb 8.9 L Hct 27.4 L RPR Non-reactive OB - PN A/P Plan day: 2 Plan: routine care and discharge home Time Spent With Patient Time: Total time spent is greater than 50% in coordination of care (as documented) at patient's floor/unit and/or counseling patient: Review of Systems Review of Systems: All systems reviewed & are unremarkable except as noted in HPI and below Exam Const: General: cooperative and healthy appearing
--- NOTE | 2022-05-02 06:34 | PM.OBDSVD ---
DS: Admitting Diagnosis Discharge Date 05/02/22 Admitting Diagnosis cholestasis, IUGR OB - DS: Summary OB Procedures : None OB Procedures Intrapartum: Spontaneous Vag Delivery OB Procedures: : None Time Spent with Patient Time attestation: Total time spent providing and/or coordinating discharge services: DS: Data Data Completed and Pending Pending studies at discharge: Pending at discharge 04/30/22 18:50 Surgical [PTH] Routine Labs on day of discharge: Labs from last 24 hours 05/01/22 04/30/22 05:47 06:56 Hgb 8.9 L Hct 27.4 L RPR Non-reactive Discharge Plan Discharge Attending physician on discharge: Sowmya Snyder Discharging Clinician: Zita Licona Patient Disposition: Home, Self-Care Activity: pelvic rest Diet: regular Patient Instructions: Antibiotic Form Stand Alone Forms: General Discharge Information Follow-up/Referrals: Zita Licona, CNM [Certified Nurse Recruiting Consultant] - 4 Weeks Discharge Medications: New ibuprofen 600 mg Tablet 600 mg PO Q6H PRN (Reason: Cramping) Qty: 30 0RF Discontinued ursodiol 300 mg capsule 300 mg PO DAILY Date of admission: 04/30/22 06:14 Primary Care Provider: Tresa,Kathleen Gant Admitting Provider: Sowmya Snyder Attending physician on admission: Sowmya Snyder Condition: Stable
[2022-05-02 08:03] VITALS: BP 117/67; PULSE 67; RESP 14; TEMP 36.8; O2SAT 100
[2022-05-02] MEDS: DOCUSATE SODIUM 100 MG CAPSULE PO (09:14)
[2022-05-02] MEDS: MULTIVIT/MIN/PREN/FOL AC/IRON TABLET 1 TAB PO (09:14)
[2022-05-02] MEDS: POLYSACCHARIDE IRON COMPLEX 150 MG CAPSULE PO (09:14)
--- NOTE | 2022-05-02 14:55 | PC.NURSE ---
[id number] Mother led the conversation with her experience and plan to feed her so far and her ability to independently latch infant optimally without discomfort. Mother is also bottle feeding formula. Reviewed milk production and offered time to answer any questions. Reminded mother to use good handwashing technique to prevent infection. Mother is feeding appropriately for growth of and understands stimulating to eat if needed. has had appropriate feedings in the last 24 hours meets the outcomes for weight, output and jaundice at this time. Mother states she is confident to continue feeding her at home or when to call for assistance and denies any additional assistance or education at this time. Reinforced understanding of milk production, transition of milk, signs of adequate intake, prevention/relief of engorgement, responsive after visualizing feeding cues, the different methods of stimulating infant to breastfeed 2-3 hours after the start of the last feeding, community resources, medication information reviewed per [employer] and when to call a provider using the resource of the mom and baby guide/[facility] website. Mother voiced understanding of the education shared. Reported to the primary RN.
[2022-05-04 11:18] VITALS: BP 112/73; PULSE 98; RESP 20; TEMP 37; O2SAT 99
== END 2022-05-02 13:20 | disposition home or self-care (01) | DRG 805 ==
LOC: ANHLDR 06:21 → ANHOB2 17:56
PROVIDERS: Advanced Practice Midwife; Admitting Provider Obstetrics & Gynecology; PCP Family Medicine; Visit Provider Obstetrics & Gynecology
DX: O36.5930 Maternal care for other known or suspected poor fetal growth, third trimester, not applicable or unspecified (principal); K83.1 Obstruction of bile duct; Z37.0 Single live birth; O26.62 Liver and biliary tract disorders in childbirth; O70.0 First degree perineal laceration during delivery; O99.824 Streptococcus B carrier state complicating childbirth; O76 Abnormality in fetal heart rate and rhythm complicating labor and delivery; O69.81X0 Labor and delivery complicated by cord around neck, without compression, not applicable or unspecified; Z3A.37 37 weeks gestation of pregnancy
CPT/HCPCS: 36415; 85014; 85018; 85025; 86592; 86850; 86900; 86901; 88307; A9270; J0290; J2590; J3010; J7120

== ENCOUNTER 2023-08-05 22:21 | Emergency (ER) | payer OTHER, SELFPAY ==
[2023-08-05 22:22] VITALS: BP 127/60; PULSE 105; RESP 18; TEMP 36.8; O2SAT 100
--- NOTE | 2023-08-05 22:34 | ED.NAVMDI ---
HPI - Nausea/Vomiting/Diarrhea General Chief complaint: Nausea/Vomiting/Diarrhea Stated complaint: I think I have food poisoning Time Seen by Provider: 08/05/23 22:33 Source: patient and family () Mode of arrival: ambulatory Limitations: no limitations History of Present Illness HPI Narrative: 28-year-old 012 female 6 months complaining of nausea and vomiting. She believes she has food poisoning though did not eat anything that caused symptoms in others. DOMENICA 11/25/23. She has lost count of the number of episodes of emesis. Denies any diarrhea or fevers or cough but she has been alternating between feeling hot and cold. Her sql ssis developer is vinicio headley who works under OB Gyne doctor [employer]. She has had routine care and denies any complications during this . She did have several episodes of emesis during prior pregnancies but has not had any during this. Never officially diagnosed with hyperemesis gravidarum. She did note that she accidentally urinated herself well vomiting earlier today but denies any leakage of fluids otherwise. She is having some abdominal cramps but denies any rio abdominal pain. Good movement continues she does not have what she feels are contractions. Related Data Allergies Allergy/AdvReac Type Severity Reaction Status Date / Time No Known Allergies Allergy Verified 08/06/23 00:00 [facility] Past Medical History Medical History GERD (gastroesophageal reflux disease) Family History Family History Grandparent Diabetes mellitus Hypertension Cerebrovascular accident Social History Social History (Updated 08/06/23 @ 04:19 by Angelina Gayle MD) Smoking status: Never smoker Second hand tobacco smoke exposure: No Alcohol intake: current Alcohol use details: TIME TO TIME OCCASIONAL-NONE SINCE BEFORE Substance use: never Living arrangements: with family Additional living arrangements comments: Spiritual care concerns: No Exam Narrative: GENERAL: Well-appearing, well-nourished, and in no acute distress. HEAD: Normocephalic, atraumatic. EYES: Non injected, non icteric ENT: Nares clear, no rhinorrhea or epistaxis. Moist mucous membranes NECK: Supple. CHEST: Speaking in full sentences. No respiratory distress. HEART: Regular rate and rhythm. . ABDOMEN: Gravid above the level of the umbilicus. Otherwise Soft. No rigidity/guarding. EXTREMITIES: Normal range of motion. No edema. SKIN: Warm, dry, no rash. NEURO: No focal deficits. Alert and oriented x3. PSYCH: Normal mood and affect. Course Vital Signs Vital signs: Vital Signs Temperature 98.2 F 08/05/23 22:22 Pulse Rate 105 H 08/05/23 22:22 Respiratory Rate 18 08/05/23 22:22 Blood Pressure 127/60 08/05/23 22:22 Pulse Oximetry 100 08/05/23 22:22 Oxygen Delivery Room Air 08/05/23 22:22 Temperature 98.2 F 08/05/23 22:22 Pulse Rate 92 08/06/23 02:00 Respiratory Rate 18 08/05/23 22:22 Blood Pressure 113/68 08/06/23 02:00 Pulse Oximetry 97 08/06/23 02:00 Oxygen Delivery Room Air 08/05/23 22:22 MDM - Nausea/Vomiting/Diarrhea MDM Narrative Medical decision making narrative: This is a 28 year old G 4 P 2012 female who is 24 w/ 0d by DOMENICA 11/24/24 who comes to the emergency department with vomiting of 1 days duration. In the emergency department she is afebrile and hemodynamically stable with vital signs that initially show tachycardia. Will obtain basic labs, and test for viruses and administer IV fluids dextrose as well as pyridoxine and ondansetron. Electrolytes, BUN creatinine glucose and CBC were all within normal limits except mild hypokalemia which will be repleted orally. Patient has ketonuria suggestive of dehydration. UA inconclusive for UTI and does not show bacteriuria. Hospital protocol reflexes to cult
[2023-08-05] MEDS: DEXTROSE 5%/0.9% SOD CHL 1,000 ML 300 ML IV CONT (23:17)
[2023-08-05] MEDS: ONDANSETRON INJ 4 MG/2 ML VIAL IV PUSH (23:17)
[2023-08-05 23:19] LABS: Basophils Percent Auto 0.3 % (0.2-1.2); Eosinophils Percent Auto 0.3 % (0-4.4); Hemoglobin 10.5 g/dL (12.0-15.0); Immature Granulocyte Percent A 1.3 % (0-0.5); Lymphocytes Percent Auto 8.8 % (18.3-44.2); Mean Corpuscular HGB Conc 32.8 g/dl (32-36); Mean Corpuscular Hemoglobin 29.4 pg (26-34); Mean Corpuscular Volume 89.6 fl (80-100); Mean Platelet Volume 9.2 fl (7.4-10.4); Monocytes Absolute Auto 0.6 K/mm3 (0.1-0.6); Monocytes Percent Auto 7.7 % (2.6-8.5); Neutrophils Absolute Auto 6.5 K/mm3 (1.3-6.7); Neutrophils Percent Auto 81.6 % (45.5-73.1); Platelet Count Result 196 k/mm3 (150-375); Red Blood Count 3.57 M/mm3 (4.2-5.4); Red Cell Distribution Width 13.2 % (11.5-14.5); White Blood Count 7.9 K/mm3 (4.5-10.0)
--- NOTE | 2023-08-05 23:24 | PC.NURSE ---
Pt reported having a headache. made aware, gave VORB for 1 gm tylenol PO
[2023-08-05] MEDS: ACETAMINOPHEN 500 MG TABLET 1000 MG PO (23:28)
[2023-08-05 23:37] LABS: Alanine Aminotransferase 11 U/L (6-35); Albumin Level 3.6 g/dL (3.5-5.1); Alkaline Phosphatase 60 U/L (38-126); Anion Gap 7 mmol/L (8-16); Aspartate Amino Transferase 28 U/L (14-36); Bilirubin,Total 0.8 mg/dL (0.2-1.3); Blood Urea Nitrogen 5 mg/dL (7-17); Calcium 8.5 mg/dL (8.4-10.2); Carbon Dioxide 22 mmol/L (22-30); Chloride 104 mmol/L (98-107); Estimated CRCL calculation 159 ml/min; Estimated Glomerular Filt Rate > 60; Glucose 97 mg/dL (65-110); Lipase 38 U/L (23-300); Potassium 3.1 mmol/L (3.4-5.0); Sodium 133 mmol/L (137-145)
[2023-08-05 23:54] LABS: Influenza A QL RT-PCR Negative (Negative); Influenza B QL RT-PCR Negative (Negative); RSV RNA, RT-PCR Negative (Negative); SARS-CoV-2 RNA PCR Negative (Negative)
[2023-08-05] MEDS: PYRIDOXINE HCL 100 MG/ML VIAL (*SPC) 50 MG IV PUSH (23:56)
[2023-08-06 00:07] VITALS: O2SAT 99
[2023-08-06 00:07] LABS: Add Urine Microscopic? YES; Appearance Urine Clear (Clear); Bacteria Urine None Seen /hpf; Bilirubin Urine Negative (Negative); Blood Urine Trace (Negative); Color Urine Dark Yellow (Yellow); Glucose Urine UA Negative (Negative); Ketones Urine 4+ mg/dL (Negative); Leukocyte Esterase Ur Negative LEU/UL (Negative); Nitrate Urine Negative (Negative); Protein Urine 1+ mg/dL (Negative); Specific Grav Ur 1.025 (1.001-1.035); Squamous Epithelial Cell Urine Few /hpf (Few)
[2023-08-06 00:33] VITALS: O2SAT 99
[2023-08-06] MEDS: POTASSIUM CHLORIDE 20 MEQ PACKET (FOR LIQUID) 40 MEQ PO (00:36)
[2023-08-06 00:45] VITALS: BP 106/69; PULSE 89; O2SAT 100
[2023-08-06 00:46] VITALS: O2SAT 100
[2023-08-06 01:15] VITALS: BP 112/55; PULSE 87; O2SAT 98
[2023-08-06 02:00] VITALS: BP 113/68; PULSE 92; O2SAT 97
== END 2023-08-06 02:32 | disposition home or self-care (01) ==
PROVIDERS: Emergency Provider Student in an Organized Health Care Education/Training Program; PCP Family Medicine
DX: O21.2 Late vomiting of pregnancy (principal); Z3A.24 24 weeks gestation of pregnancy; Z20.822 Contact with and (suspected) exposure to COVID-19
CPT/HCPCS: 36415; 80053; 81001; 83690; 85025; 87077; 87086; 87088; 87637; 96361; 96374; 96375; 99284; A9270; J2405; J3415; J7042

== ENCOUNTER 2023-11-03 06:17 | Inpatient (IN) | payer BC, OTHER, SELFPAY ==
[2023-11-03] VITALS (50 sets, daily range): BP systolic 90–125; BP diastolic 53–80; PULSE 68–95; RESP 18; TEMP 36.2–36.8; O2SAT 96–100; BMI 26.3
[2023-11-03 06:52] LABS: Basophils Percent Auto 0.3 % (0.2-1.2); Eosinophils Absolute Auto 0.1 K/mm3 (0-0.3); Eosinophils Percent Auto 1.6 % (0-4.4); Hematocrit 31.2 % (37.0-47.0); Hemoglobin 9.9 g/dL (12.0-15.0); Immature Granulocyte Absolute 0.04 K/mm3 (0.00-0.031); Immature Granulocyte Percent A 0.5 % (0-0.5); Lymphocytes Absolute Auto 1.98 K/mm3 (0.9-3.2); Lymphocytes Percent Auto 26.5 % (18.3-44.2); Mean Corpuscular HGB Conc 31.7 g/dl (32-36); Mean Corpuscular Hemoglobin 27.3 pg (26-34); Mean Corpuscular Volume 86.2 fl (80-100); Mean Platelet Volume 10.3 fl (7.4-10.4); Monocytes Absolute Auto 0.8 K/mm3 (0.1-0.6); Monocytes Percent Auto 11.1 % (2.6-8.5); Neutrophils Absolute Auto 4.5 K/mm3 (1.3-6.7); Platelet Count Result 257 k/mm3 (150-375); Red Blood Count 3.62 M/mm3 (4.2-5.4); White Blood Count 7.5 K/mm3 (4.5-10.0)
--- NOTE | 2023-11-03 06:53 | LDADM ---
This patient, Anai Harding, was admitted to Labor/Delivery/Recovery 107 on 11/03/23 at 06:17. Plans for labor, pain management and were discussed with patient. Patient/family oriented to hospital policies and general routines including ID bracelet, bed and alarms, visiting hours, pain management, procedures, bathroom and other care routines, personal items, smoking policy, room service/diet and guest tray routines, security routines, and visiting hours. Patient/Family are encouraged to report perceived risks to care and to ask questions if they do not understand what they are told or what they should do. See [facility]BIX for further documentation.
[2023-11-03] MEDS: miSOPROStol 25 MCG TABLET 50 MCG XX (07:08)
[2023-11-03] MEDS: AMPICILLIN 2 GM/NS 100 ML 2 GM/100 ML BAG IVPB (07:08)
[2023-11-03] MEDS: LACTATED RINGERS 1,000 ML 125 ML IV CONT (07:08)
--- NOTE | 2023-11-03 08:15 | WPDOBADMIT ---
Obstetrics - Admit Note Admission Note: record reviewed. No pertinent additions to the history and/or any subsequent changes in the physical findings that are not consistent with the expected course of the were found. Additions to the history and/or subsequent changes in the physical findings follow. Admit for cholestasis, cytotec for IOL, anticipate vaginal delivery
[2023-11-03] MEDS: AMPICILLIN 1 GM/NS 50 ML 1 GM/50 ML BAG IVPB (11:18)
[2023-11-03] MEDS: miSOPROStol 25 MCG TABLET 50 MCG PO (12:02)
--- NOTE | 2023-11-03 13:15 | PM.OBPNVD ---
OB - PN: Subj Subjective Date/time seen: 11/03/23 13:15 Interval history: SVE 2/80/-1 AROM moderate amount of clear, odorless fluid, anticipate vaginal delivery OB - PN: Obj Data Labs 11/03/23 06:34 Labs: Laboratory Results - last 24 hr 11/03/23 06:34 WBC 7.5 RBC 3.62 L Hgb 9.9 L Hct 31.2 L MCV 86.2 MCH 27.3 MCHC 31.7 L RDW 13.0 Plt Count 257 MPV 10.3 Immature Gran % (Auto) 0.5 Neut % (Auto) 60.0 Lymph % (Auto) 26.5 [place] % (Auto) 11.1 H Eos % (Auto) 1.6 Baso % (Auto) 0.3 Lymph # (Auto) 1.98 [place] # (Auto) 0.8 H Eos # (Auto) 0.1 Baso # (Auto) 0.0 Abs Immat Gran (auto) 0.04 H Absolute Neuts (auto) 4.5 Absolute Nucleated RBC 0.000 Nucleated RBC % 0.0 Blood Type O Positive Antibody Screen Negative OB - PN A/P Time Spent With Patient Time: Total time spent is greater than 50% in coordination of care (as documented) at patient's floor/unit and/or counseling patient:
[2023-11-03] MEDS: fentaNYL CITRATE INJ (*CRX) 100 MCG/2 ML VIAL 50 MCG IV PUSH (15:03)
[2023-11-03] MEDS: OXYTOCIN 30 UNITS/NS 500 ML 30 UNITS/500 ML BAG IV CONT (16:15)
--- NOTE | 2023-11-03 16:59 | PM.OBPRVD ---
OB - Vaginal Delivery Note Procedure Delivery date: 11/03/23 Events: Other (cholestasis) Induction method: AROM, Per Misoprostol Protocol and Per Pitocin Protocol Delivery monitor: External FHT and External Uterine Route of delivery: Episiotomy description: None Laceration Description: Perineal - 1st Degree (discussed with pt, no bleeding, declined repair) Specimen: Yes Quantitative Blood Loss (ml): 30 Anesthesia type: None Disposition: Floor Complications: No immediate complications [place] Baby Date of : 11/03/23 Time of : 16:45 Weeks of gestation at delivery: 36 Infant gender: Female presentation: vertex position: Left Occiput Anterior Placenta delivery description: Spontaneous Cord Vessel Description: 3 Vessels, Nuchal Cord (x1), Loose, Reduced and Delayed Cord Clamping score one minute: 8 score five minutes: 9 Narrative: mother and baby skin to skin in stable condition
[2023-11-03] MEDS: OXYTOCIN 30 UNITS/NS 500 ML 30 UNITS/500 ML BAG 125 UNITS IV CONT (17:02)
[2023-11-03] MEDS: LIDOCAINE HCL 1% LOCAL INJ 20 ML VIAL (17:02)
[2023-11-03] MEDS: ACETAMINOPHEN 325 MG TABLET 650 MG PO ×2 (17:19→23:13)
[2023-11-03] MEDS: WITCH HAZEL 40 PADS 1 PAD TOPICAL (17:19)
[2023-11-03] MEDS: BENZOCAINE 20% AER SPR (*SP) 56 GM CAN 1 SPRAY TOPICAL (17:19)
[2023-11-03] MEDS: ursodioL 300 MG CAPSULE PO (17:20)
[2023-11-03] MEDS: IBUPROFEN 600 MG TABLET PO (19:09)
[2023-11-04 03:35] LABS: Hematocrit 29.4 % (37.0-47.0); Hemoglobin 9.5 g/dL (12.0-15.0)
[2023-11-04 03:36] VITALS: BP 116/65; PULSE 73; RESP 18; TEMP 36.4; O2SAT 100
[2023-11-04 08:05] VITALS: BP 108/67; PULSE 68; RESP 20; TEMP 36.3; O2SAT 97
[2023-11-04] MEDS: POLYSACCHARIDE IRON COMPLEX 150 MG CAPSULE PO ×2 (08:07→18:39)
[2023-11-04] MEDS: MULTIVIT/MIN/PREN/FOL AC/IRON TABLET 1 TAB PO (08:07)
[2023-11-04] MEDS: ursodioL 300 MG CAPSULE PO ×2 (08:07→18:41)
[2023-11-04] MEDS: IBUPROFEN 600 MG TABLET PO ×2 (08:07→13:48)
[2023-11-04] MEDS: DOCUSATE SODIUM 100 MG CAPSULE PO ×2 (08:07→18:40)
--- NOTE | 2023-11-04 09:54 | PC.NURSE ---
Addendum entered by Marilou Blakely RN 11/04/23 09:57: Discussed the late behaviors along with expectations. Suggested breast switching, gentle massage before along with gentle compression while infant is to encourage more swallowing. Name written on the communication board with instructions on how to call for inpatient assistance. Original Note: [id number] Introductions were made and Mother led the conversation with her experience, plan to feed her so far, her ability to independently latch infant optimally without discomfort, along with supplementing with bottle formula. Reviewed milk production, protecting her milk supply and offered time to answer any questions. Reminded mother to use good handwashing technique to prevent infection. Mother is feeding appropriately for growth of and understands stimulating infant to eat if needed. has had appropriate feedings in the last 24 hours meets the outcomes for weight, output and jaundice at this time. Mother states she is confident to continue feeding her infant at home or when to call for assistance and denies any additional assistance or education at this time. Reinforced understanding of milk production, transition of milk, signs of adequate intake, prevention/relief of engorgement, responsive after visualizing feeding cues, the different methods of stimulating to breastfeed 2-3 hours after the start of the last feeding, community resources, medication information reviewed per [employer] and when to call a provider using the resource of the feeding sheet along with the mom and baby guide. Mother voiced understanding of the education shared.
[2023-11-04] MEDS: ACETAMINOPHEN 325 MG TABLET 650 MG PO (12:58)
[2023-11-04] MEDS: ACETAMINOPHEN 325 MG TABLET (13:04)
[2023-11-04 16:53] LABS: Rapid Plasma Reagin Non-Reactive (NonReactive)
[2023-11-04] MEDS: ACETAMINOPHEN 500 MG TABLET 1000 MG PO (18:38)
[2023-11-04 18:47] VITALS: BP 121/74; PULSE 72; RESP 16; TEMP 36.7
[2023-11-05] MEDS: IBUPROFEN 600 MG TABLET PO ×2 (00:46→16:12)
--- NOTE | 2023-11-05 07:29 | PM.OBPNVD ---
OB - PN: Subj Subjective Date/time seen: 11/05/23 07:29 Interval history: PPD #1 Doing well no issues pain well controlled bleeding wnl voiding without issue regular diet ready for discharge home today OB - PN: Obj Data Labs 11/04/23 03:24 Labs: Laboratory Results - last 24 hr 11/03/23 06:34 RPR Non-reactive OB - PN A/P Plan day: 1 Plan: routine care and discharge home Time Spent With Patient Time: Total time spent is greater than 50% in coordination of care (as documented) at patient's floor/unit and/or counseling patient: Review of Systems Review of Systems: All systems reviewed & are unremarkable except as noted in HPI and below Exam Const: General: comfortable and no acute distress Resp: Effort & Inspection: normal respiratory effort
[2023-11-05 07:55] VITALS: BP 125/78; PULSE 72; RESP 18; TEMP 36.5; O2SAT 100
[2023-11-05] MEDS: MULTIVIT/MIN/PREN/FOL AC/IRON TABLET 1 TAB PO (08:13)
[2023-11-05] MEDS: POLYSACCHARIDE IRON COMPLEX 150 MG CAPSULE PO ×2 (08:13→16:12)
[2023-11-05] MEDS: DOCUSATE SODIUM 100 MG CAPSULE PO ×2 (08:13→16:13)
[2023-11-05] MEDS: ursodioL 300 MG CAPSULE PO (08:13)
[2023-11-05] MEDS: ACETAMINOPHEN 500 MG TABLET 1000 MG PO (08:15)
--- NOTE | 2023-11-05 08:20 | PM.OBPNVD ---
OB - PN: Subj Subjective Date/time seen: 11/05/23 08:20 Interval history: PPD #1 Doing well no issues pain well controlled bleeding wnl voiding without issue regular diet ready for discharge home today OB - PN: Obj Data Labs 11/04/23 03:24 Labs: Laboratory Results - last 24 hr 11/03/23 06:34 RPR Non-reactive OB - PN A/P Time Spent With Patient Time: Total time spent is greater than 50% in coordination of care (as documented) at patient's floor/unit and/or counseling patient:
--- NOTE | 2023-11-05 08:21 | PM.OBDSVD ---
DS: Admitting Diagnosis Discharge Date 11/05/23 Admitting Diagnosis term DS: Discharge Diagnosis Discharge Diagnosis (1) Term delivered: Code(s): O80 - Encounter for full-term uncomplicated delivery Status: Acute OB - DS: Summary OB Procedures : None OB Procedures Intrapartum: Spontaneous Vag Delivery OB Procedures: : None Peripartum Data Laceration Description: Perineal - 1st Degree (discussed with pt, no bleeding, declined repair) Episiotomy description: None Time Spent with Patient Time attestation: Total time spent providing and/or coordinating discharge services: DS: Data Data Completed and Pending Pending studies at discharge: Pending at discharge 11/03/23 17:24 Surgical [PTH] Routine Labs on day of discharge: Labs from last 24 hours 11/03/23 06:34 RPR Non-reactive Discharge Plan Discharge Discharging Clinician: Sowmya Snyder Patient Disposition: Home, Self-Care Activity: pelvic rest Diet: regular Patient Instructions: Antibiotic Form Stand Alone Forms: General Discharge Information Follow-up/Referrals: Sowmya Snyder MD [Physician] - Discharge Medications: Discontinued ursodiol 300 mg Capsule 300 mg PO BID Date of admission: 11/03/23 06:17 Primary Care Provider: Tresa,Kathleen Gant Admitting Provider: Sowmya Snyder Attending physician on admission: Zita Licona Condition: Stable
--- NOTE | 2023-11-05 10:45 | PC.NURSE ---
Breast pump provided due to maternal preference. Instructions given on cleaning, care, usage, that there should be no pain, pumping schedule for milk production, collection, and storage of human milk. Patient was assessed for correct placement, flange size, to pump for comfort and nipple stretching/stimulation for adequate milk production every 3 hours (8 times in 24 hours) 1-2 times at night.
--- NOTE | 2023-11-05 11:38 | PC.NURSE ---
1135 - Purposefully rounded to assess for needs. Mother is eating breakfast and will call when she is finished to discuss.
--- NOTE | 2023-11-05 14:26 | PC.NURSE ---
[id number] Consulted with patient to assess needs related to and mother has infant independently latched to the right breast using cradle hold and infant's mouth is opened 90 degrees, No swallowing is visualized. Discussed with mother her successes, concerns and any questions she has. We reviewed working with the infant, supporting breast, protecting her nipples with an optimal deep latch, good positioning, and good hand washing. Encouraged understanding the benefits of skin to skin, responding to feeding cues, frequencies of feeding 8-12 times in 24 hours (approximately 2-3 hours), duration of feedings, milk production, intake/output feeding sheet and signs of adequate intake encouraging swallowing at the breast. Reviewed positioning and alignment, supporting breast, off-centered (asymmetrical latch) and leading with the chin with big, open, wide gape. Infant latched optimally to the left breast in cradle position with infant brought in closer to mothers body and the mouth optimally opened wide. Education given to the mother of how to visualize the suckling (with good rocking jaw motion) swallows (dropping of the lower jaw) and how to listen for drinking at the breast (the ka sound) and infant demonstrated swallowing with the deeper latch. The was able to maintain latch without discomfort to mother. Nipple care reviewed with optimal deep latch with good positioning. is content with hands opened and arms relaxed after . Mother shared that she has been also supplementing with formula. We discussed the risks and benefits of the feeding options available to her and 36 6/7 infant. We reviewed the late behaviors along with keeping infant warm and actively every 2-3 hours with swallowing. Resources used to facilitate learning were used from the visual handouts/ tool. Mother voiced understanding of the education shared, to call for assistance if the infant does not latch or if there is discomfort with . Reported to the Primary RN.
[2023-11-07 11:20] VITALS: BP 114/76; PULSE 95; RESP 18; TEMP 36.6; O2SAT 99
== END 2023-11-05 17:45 | disposition home or self-care (01) | DRG 560 ==
LOC: ANHOB2 11-05 10:54 → ANHLDR 11-06 09:38 → ANHOB2 11-06 09:38
PROVIDERS: Advanced Practice Midwife; Admitting Provider Obstetrics & Gynecology; PCP Family Medicine; Visit Provider Obstetrics & Gynecology
DX: O26.643 Intrahepatic cholestasis of pregnancy, third trimester (principal); Z37.0 Single live birth; Z3A.36 36 weeks gestation of pregnancy; O99.824 Streptococcus B carrier state complicating childbirth; O69.81X0 Labor and delivery complicated by cord around neck, without compression, not applicable or unspecified; O70.0 First degree perineal laceration during delivery
CPT/HCPCS: 36415; 85014; 85018; 85025; 86592; 86850; 86900; 86901; 88307; A9270; J0290; J2590; J3010; J7120

== ENCOUNTER 2024-11-16 18:34 | Emergency (ER) | payer BC, OTHER, SELFPAY ==
--- NOTE | ~2024-11-16 | XR_ITS ---
CHEST RADIOGRAPH CLINICAL HISTORY: cough, congestion, uri, 14 weeks . COMPARISON: 09/15/2016 TECHNIQUE: Single portable view of the chest. FINDINGS The cardiomediastinal silhouette is unremarkable. The lungs are clear. Visualized osseous structures and soft tissues are unremarkable. IMPRESSION: No focal infiltrate or effusion. Reviewed, dictated and finalized at location A.
--- OUTSIDE RECORDS SUMMARY | 2024-11-16 18:36 | XMS_ITS | Clinical Summary ---
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 30 tablet 04/06/2023 Active Social History Tobacco Use Types Packs/Day Years Used Date Smoking Tobacco: Never Smokeless Tobacco: Never Tobacco Cessation:Counseling Given: Not Answered Alcohol Use Standard Drinks/Week Comments Never 0 (1 standard drink = 0.6 oz pur e alcohol) Comments Unknown Sex and Gender Information Value Date Recorded Sex Assigned at Not on file Legal Sex Female 8:21 PM CDT Gender Identity Not on file Sexual Orientation Not on file Last Filed Vital Signs Vital Sign Reading Time Taken Comments Blood Pressure 112/81 04/06/2023 1:28 AM CDT Pulse 78 04/06/2023 1:28 AM CDT Temperature 36.6 C (97.8 F) 04/05/2023 8:47 PM CDT Respiratory Rate 18 04/06/2023 1:28 AM CDT Oxygen Saturation 100% 04/06/2023 1:28 AM CDT Inhaled Oxygen Concentration - - Weight 72.6 kg (160 lb) 04/05/2023 8:47 PM CDT Height 172.7 cm (5' 8 ) 04/05/2023 8:47 PM CDT Body Mass Index 24.33 04/05/2023 8:47 PM CDT Plan of Treatment Health Maintenance Due Date Last Done Comments Cervical Cancer Screening Pap Smear (Age 21 to 29) Every 3 Years 1995 Cervical Cancer Screening 1995 Annual Physical 1998 Hepatitis C 2013 COVID-19 Vaccine (2023- season) 2024 DTaP, Tdap and Td Vaccines (9 - Td or Tdap) 11/03/2031 11/02/2021, 01/06/2019, 12/19/2015, Additional history exists Hepatitis B Vaccines Completed 04/11/2004, 1996, 02/28/1996, Additional history exists Meningococcal Vaccine Aged Out 05/11/2011 No armida tita eligible based on patient's age to complete this topic HPV Vaccines Aged Out No longer eligi ble based on patient's age to complete this topic Meningococcal B Vaccine Aged Out No l onger eligible based on patient's age to complete this topic Pneumococcal Vaccine: Pediatrics (0 to 5 Years) and At-Risk Patients (6 to 64 Years) Aged Out No longer eligible based on patient's age to complete this topic RSV Immunizations Under 20 Months Aged Out No longer eligible based on patient's age to complete this topic Insurance Care Teams 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
--- OUTSIDE RECORDS SUMMARY | 2024-11-16 18:36 | XMS_ITS | Data Portability ---
Author Organization [facility] [place] Address [address] [place] [address] [place] [address] Assessment Encounter Date Assessment Date Assessment LastModified by Organization Details LastModified Time 10/07/2024 10/07/2024 reviewed office precautions and folder, reglan not working try zofran precautions and education f/u 12 week new ob and first look may draw lab and nipt at 10 weeks Not available 10/08/2024 20:01:11 Plan of Treatment Reminders Order Date Submit Date Provider Last Modified By Organization Details Last Modified Time Details Appointments OB ROUTINE 2024 10:00A M Sowmya SNYDER MD Not available Not available Not available U/S OB BASELIN E 2024 10:00A M ULTRASOUND Not available Not available Not available OB ROUTINE 2024 11:00A M Zita Licona CNM Not available Not available Not available Lab drug screen, urine 2024 025 [email or web address] [place], [address], [place], [address], 10/28/2024 18:06:47 culture , urine 2024 025 [facility] (Lab), [address], [place], [address], 10/29/2024 22:41:00 CT + NG + TV, RNA, unspeci fied specime n 2024 025 [facility] (Lab), [address], [place], [address], 10/09/2024 12:38:31 Referral None recorde d. Procedures None recorde d. Surgeries None recorde d. Imaging US, obstetr ic, nuchal translu cency 2024 025 [email or web address] [place], [address], [place], [address], 10/28/2024 19:29:43 US, obstetr ic, 1st trimest er 2024 025 [email or web address] [place], [address], [place], [address], 10/28/2024 19:29:43 Medication Orders ondanse jamaica 4 mg disinte grating tablet 2024 025 [id number], [address] [place], [address], 10/07/2024 18:18:30 Patient TargetsNo targets recorded. Patient InstructionsNo instructions recorded. Reason for Referral None Reported. 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,000 normal Not Available [facility] [address] [facility], [place], [address], 11/03/2024 15:43:35 11/04/19 25 11/03/2024 [UNIT Y] ANEUP LOIDY NIPT trisomy 18 LOW RISK <1 in 10,000 normal Not Available [facility] [address] [facility], [place], [address], 11/03/2024 15:43:35 11/04/19 25 11/03/2024 [UNIT Y] ANEUP LOIDY NIPT trisomy 21 LOW RISK <1 in 10,000 normal Not Available [facility] [address] [facility], [place], [address], 11/03/2024 15:43:35 11/04/19 25 11/03/2024 [UNIT Y] ANEUP LOIDY NIPT sex MALE normal Not Available [facility] [address] [facility], [place], [address], 11/03/2024 15:43:35 11/04/19 25 11/03/2024 [UNIT Y] ANEUP LOIDY NIPT gestation SINGLE TON normal Not Available [facility] [address] [facility], [place], [address], 11/03/2024 15:43:35 11/04/19 25 11/03/2024 [UNIT Y] ANEUP LOIDY NIPT for detailed report, see pdf See PDF normal Not Available [facility] [address], [place], [address], 11/03/2024 15:43:35 10/29/19 25 10/28/2024 drug scree n, urine Amphetamines : negati ve Not Available [place] [address], [place], [address], 10/28/2024 18:03:17 10/29/19 25 10/28/2024 drug scree n, urine Cannabinoids : negati ve Not Available [place] [address], [place], [address], 10/28/2024 18:03:17 10/29/19 25 10/28/2024 drug scree n, urine Cocaine: negati ve Not Available [place] [address], [place], [address], 10/28/2024 18:03:17 10/29/19 25 10/28/2024 drug scree n, urine Opiates: negati ve Not Available [place] [address], [place], [address], 10/28/2024 18:03:17 10/29/19 25 10/28/2024 drug scree n, urine Phenocyclidi ne: negati ve Not Available [place] [address], [place], [address], 10/28/2024 18:03:17 10/29/19 25 10/28/2024 drug scree n, urine Barbiturates : negati ve Not Available [place] [address], [place], [address], 10/28/2024 18:03:17 10/29/19 25 10/28/2024 drug scree n, urine Benzodiazepi singh: negati ve Not Available [place] [address], [place], [address], 10/28/2024 18:03:17 10/29/19 25 10/28/2024 drug scree n, urine Ethanol: negati ve Not Available [place] [address], [place], [address], 10/28/2024 18:03:17 10/29/19 25 10/28/2024 drug scree n, urine Hallucinogen s: negati ve Not Available [place] [address], [place], [address], 10/28/2024 18:03:17 10/29/19 25 10/28/2024 drug scree n, urine Inhalants: negati ve Not Available [place] [address], [place], [address], 10/28/2024 18:03:17 10/29/19 25 10/28/2024 drug scree n, urine Anabolic Steroids: negati ve Not Available [place] [address], [place], [address], 10/28/2024 18:03:17 10/29/19 25 10/28/2024 drug scree n, urine Other: negati ve Not Available [place] [address], [place], [address], 10/28/2024 18:03:17 10/07/19 25 10/07/2024 US, obste tric, 1st trime ster No observ ation record ed. [email or web address] [address], [place], [address], 10/08/2024 00:53:28 10/29/19 25 10/28/2024 US, obste tric, nucha l trans lucen cy No observ ation record ed. [email or web address] [place] [address], [place], [address], 10/28/2024 18:08:42 10/29/19 25 10/28/2024 US, obste tric, 1st trime ster No observ ation record ed. [email or web address] [place] [address], [place], [address], 10/28/2024 18:08:52 10/29/19 25 10/28/2024 US, obste tric, nucha l trans lucen cy No observ ation record ed. [email or web address] [address], [place], [address], 10/28/2024 21:45:03 Result Notes None recorded. Problems Name Problem SNOMED Code Status Onset Date Resolution Date Notes Provider Name and Address Organization Details Recorded Time Normal pregnanc y in multigra ivan [id number] 70625 Completed 201802/22/2021 Encounte r for suprvsn of normal pregnanc y, third trimeste r;Practi ce ID: 0001 Loretta gonzalez, [facility] 12:32:51 Pregnanc y, childbir th and puerperi um finding Completed 201802/22/2021 Encntr for suprvsn of normal first preg, third trimeste r;Practi ce ID: 0001 Loretta gonzalez, [facility] 12:33:16 Pregnanc y, childbir th and puerperi um finding Completed 201802/22/2021 Encntr for suprvsn of normal first pregnanc y, unsp trimeste r;Practi ce ID: 0001 Loretta gonzalez, [facility] 12:33:13 Pre-ecla mpsia 118651823 Completed 201802/22/2021 Mild to moderate pre-ecla mpsia, complica ting childbir th;Pract ice ID: 0001 Loretta gonzalez, [facility] 12:33:06 Lacerati on of female perineum Completed 201802/22/2021 Second degree perineal lacerati on during delivery ;Practic e ID: 0001 [facility] 12:32:49 Single live [id number] Completed 201802/22/2021 Single live ;Pr actice ID: 0001 Loretta gonzalez [facility] 12:33:19 Gestatio n period, 38 weeks 28026236 Completed 201802/22/2021 38 weeks gestatio n of pregnanc y;Practi ce ID: 0001 Loretta Dorman [facility] 12:32:45 Clinical finding Completed 201802/22/2021 Encounte r for surveill ance of injectab le contrace ptive;Pr actice ID: 0001 Loretta Dorman [facility] 12:32:36 Pregnanc y test negative [id number] Completed 201802/22/2021 Encounte r for pregnanc y test, result negative ;Practic e ID: 0001 Loretta Dorman [facility] 12:33:10 Bleeding 584093859 Completed 201902/22/2021 Abnormal uterine and vaginal bleeding , unspecif ied;Prac mary ID: 0001 Loretta Dorman [facility] 12:32:[address] Concept Completed 201902/22/2021 Encntr for strap buckler machine exam (general ) (routine ) w/o abn findings ;Practic e ID: 0001 [facility] 12:33:21 Antenata l screenin g for malforma tion Completed 201802/22/2021 Encounte r for antenata l screenin g for malforma tions;Re corded Elsewher e: No Locat ion: Chanazane kadi [facility] S ource: EHR Hse Specialist alfonzo: N Pauletteti ce ID: 0001 Roderick lable Time: 09:00:00 AM Loretta gonzalez, [facility] 1 12:32:34 Finding of regulari ty of menstrua l cycle Completed 201702/22/2021 Irregula r bleeding ;Recorde d Elsewher e: No [facility] N Pauletteti ce ID: 0001 Roderick lable Time: 01:00:00 PM Loretta gonzalez, [facility] 1 12:32:43 Antenata l screenin g Completed 201802/22/2021 Encounte r for antenata l screenin g for nuchal transluc ency;Rec orded Elsewher e: No Locat ion: Chanazane kadi [facility] N Pauletteti ce ID: 0001 Roderick lable Time: 08:45:00 AM Loretta Dorman carlos, [facility] 1 12:32:32 Pregnanc y, childbir th and puerperi um finding Completed 201802/22/2021 Encntr for suprvsn of normal first preg, second trimeste r;Record ed Elsewher e: No Locat ion: Chanazane kadi [facility] S ource: EHR Hse Specialist alfonzo: N Pauletteti ce ID: 0001 Roderick lable Time: 10:00:00 AM Loretta Dorman carlos, [facility] 1 12:33:15 Finding of defecati on Completed 201802/22/2021 Constipa tion, unspecif ied;Sedrick rded Elsewher e: No Locat ion: Chanazane kadi [facility] N Pauletteti ce ID: 0001 Roderick lable Time: 02:00:00 PM Loretta gonzalez [facility] 1 12:32:39 Pregnanc y detectio n examinat ion Completed 201702/22/2021 Encounte r for pregnanc y test, result positive ;Recorde d Elsewher e: No Locat ion: [facility] S ource: EHR Hse Specialist alfonzo: N Practi ce ID: 0001 Roderick lable Time: 11:00:00 AM Loretta gonzalez, [facility] 1 12:33:08 Gestatio n period, 8 weeks 11765762 Completed 201702/22/2021 8 weeks gestatio n of pregnanc y;Record ed Elsewher e: No Locat ion: [facility] S ource: EHR Hse Specialist alfonzo: N Practi ce ID: 0001 Roderick lable Time: 11:00:00 AM Loretta gonzalez, [facility] 12:32:47 Finding of fertilit y Completed 201702/22/2021 Female infertil ity, unspecif ied;Sedrick rded Elsewher e: No Locat ion: [facility] S ource: EHR Hse Specialist alfonzo: N Practi ce ID: 0001 Roderick lable Time: 08:30:00 AM Loretta gonzalez, [facility] 1 12:32:41 Pregnanc y 03161129 Completed 202106/04/2022 Loretta gonzalez, [facility] 5 16:54:25 Headache disorder 075088920 Completed fioricet prn Magda gonzalez, [facility] 2 13:17:24 Pregnanc y 24936162 Completed 202211/04/2023 Loretta gonzalez, [facility] 5 16:54:25 History of cholesta sis in pregnanc y 9096044051 3015710 Completed 2021 Loretta gonzalez, [facility] 5 16:29:06 Past pregnanc y history of pre-ecla mpsia 2099680641 Completed 2019- started ASA 81 mg 12 weeks, PCR 20 weeks as baseline Loretta gonzalez [facility] 5 16:29:06 Nausea 587898387 Completed zofran Loretta gonzalez, [facility] 5 16:29:06 Anemia 913149283 Completed 2023 1 slowfe bid Loretta gonzalez [facility] 5 16:29:06 Cholesta sis 96643210 Completed ursodiol BID, Antenata l testing and 36-37 wk delivery Loretta gonzalez [facility] 5 16:29:06 Group B Streptoc occus carrier 0460010174 103 Completed + GBS amp in labor Loretta gonzalez [facility] 5 16:29:06 Pregnanc y 81071090 Active 2024 Loretta gonzalez, [facility] 5 16:54:25 Past pregnanc y history of pre-ecla mpsia 6568485805 42032 Active 2024 Loretta gonzalez, [facility] 5 18:01:05 History of cholesta sis in pregnanc y 5917323320 5358797 Active x2 Zita Licona CNM [address], [place], [address], [facility] 5 17:21:51 History of anemia 643094741 Active Zita Licona CNM [address], [place], [address], [facility] 17:22:21 Anxiety 35915169 Active fluoxeti ne 10 mg daily Zita Licona CNM [address], [place], [address], [place] [facility] 17:23:46 Past pregnanc y history of pre-ecla mpsia 5366941164 33117 Active 2024 Loretta gonzalez, [facility] 18:01:05 Past pregnanc y history of gestatio nal hyperten eva 722069518 Active 2024 Loretta gonzalez, [facility] 18:01:39 Problem Notes None recorded. Procedures Surgical History Date Name Laterality Status Provider Name and Address Organization Details Recorded Time Date of Last Pap Smear completed Loretta Dorman [facility] 10/07/2024 18:10:35 DILATION & CURETTAGE (SURG) completed Annalee Erickson [facility] 03/02/2021 11:28:09 Imaging Results Imaging Date Name Status LastModified by Organization Details LastModified Time 10/07/2024 US, obstetric, 1st trimester completed [email or web address] [address], [place], [address], 10/08/2024 00:53:28 10/28/2024 US, obstetric, nuchal translucency completed [email or web address] [facility] [address], [place], [address], 10/28/2024 18:08:42 10/28/2024 US, obstetric, 1st trimester completed [email or web address] [place] [address], [place], [address], 10/28/2024 18:08:52 10/28/2024 US, obstetric, nuchal translucency completed [email or web address] [address], [place], [address], 10/28/2024 21:45:03 Procedure Notes None recorded. Medical Equipment None Reported. Allergies No known drug allergies Medications Name Sig Start Date Stop Date Status Note LastModified by Organization Details LastModified Time amoxicill in 500 mg capsule TAKE 1 TABLET BY MOUTH 3 TIMES A DAY UNTIL GONE 10/07 completed Not Available Not Available Not Available buspirone 5 mg tablet TAKE 1 TABLET BY MOUTH TWICE DAILY 05/22 completed Not Available Not Available Not Available cetirizin e 10 mg tablet TAKE 1 TABLET BY MOUTH EVERY DAY NEEDED 10/07 completed Not Available Not Available Not Available azithromy drew 250 mg tablet TAKE 2 TABLETS BY MOUTH FOR 1 DAY THEN TAKE 1 TABLET BY MOUTH DAILY FOR 4 DAYS 12/03 completed Not Available Not Available Not Available benzonata te 200 mg capsule TAKE 1 CAPSULE BY MOUTH THREE TIMES DAILY NEEDED 06/27 completed Not Available Not Available Not Available clomiphen e citrate 50 mg tablet take 1 tablet by oral route every day 11/10 completed Prescrib ed Elsewher e: No Locat ion: [facility] odify By: negro etienne DateTime : 01/30/20 18 01:00:00 PM Not Available Not Available Not Available ondansetr on HCl 4 mg tablet Take one tablet by oral route every 4-6 hours as needed 06/27 completed Not Available Not Available Not Available fluoxetin e 10 mg tablet TAKE 1 TABLET BY MOUTH EVERY DAY DIRECTED active Not Available Not Available No t Available acetamino phen 300 mg-codein e 30 mg tablet 06/27 completed Not Available Not Available Not Available butalbita l-acetami nophen-ca ffeine 50 mg-325 mg-40 mg tablet Take 1 tablet every 4 hours by oral route as needed. 06/27 completed Not Available Not Available Not Available amoxicill in 875 mg tablet TAKE 1 TABLET BY MOUTH EVERY 12 HOURS DIRECTED FOR 7 DAYS 10/07 completed Not Available Not Available Not Available metoclopr amide 5 mg tablet TAKE 1 TABLET BY MOUTH FOUR TIMES A DAY NEEDED active Not Available Not Available No t Available benzonata te 100 mg capsule TAKE 1 CAPSULE BY MOUTH THREE TIMES A DAY 10/28 completed Not Available Not Available Not Available ursodiol 300 mg capsule TAKE 1 CAPSULE BY MOUTH TWICE DAILY DIRECTED 12/03 completed Not Available Not Available Not Available norethind tammi acetate 5 mg tablet take1 tablet by oral route every day for 10 consecut tramaine days (of each month). 01/29 completed Prescrib muriel [place] e: No Locat ion: Juan Jose wallis [facility] odify By: [email or web address] Encounte r DateTime : 01/30/20 18 01:00:00 PM Not Available Not Available Not Available ibuprofen 600 mg tablet TAKE 1 TABLET BY MOUTH EVERY 6 HOURS NEEDED FOR CRAMPING 06/27 completed Not Available Not Available Not Available scopolami ne 1 mg over 3 days transderm al patch APPLY 1 PATCH EVERY 3 DAYS 10/04 completed Not Available Not Available Not Available methylpre dnisolone 4 mg tablets in a dose pack TAKE 6 TABLETS ON DAY 1 DIRECTED ON PACKAGE AND DECREASE BY 1 TAB EACH DAY FOR A TOTAL OF 6 DAYS 10/07 completed Not Available Not Available Not Available dexametha sone 1.5 mg tablet 05/24 completed Not Available Not Available Not Available ondansetr on 4 mg disintegr ating tablet take 1 tablet by oral route every 6 hours as needed for nausea and place on top of the tongue where they will dissolve , then swallow 2024 active Not Available Not Available Not Avai lable cefdinir 300 mg capsule TAKE 1 CAPSULE BY MOUTH EVERY 12 HOURS DIRECTED FOR 7 DAYS 10/28 completed Not Available Not Available Not Available fluticaso ne propionat e 50 mcg/actua tion nasal spray,chinmay pension SPRAY 2 SPRAYS INTO EACH NOSTRIL EVERY DAY active Not Available Not Available No t Available medroxypr ogesteron e 150 mg/mL intramusc ular suspensio n 05/24 completed Not Available Not Available Not Available metoclopr amide 10 mg tablet TAKE 1 TABLET BY MOUTH 4 TIMES A DAY DIRECTED FOR 14 DAYS. 10/07 completed Not Available Not Available Not Available amoxicill in 875 mg-potass ium clavulana te 125 mg tablet TAKE 1 TABLET BY MOUTH EVERY 12 HOURS FOR 7 DAYS DIRECTED 10/07 completed Not Available Not Available Not Available medroxypr ogesteron e 150 mg/mL intramusc ular syringe inject 1 millilit er by intramus cular route every 3 months 05/24 completed Not Available Not Available Not Available bupropion HCl XL 150 mg 24 hr tablet, extended release TAKE 1 TABLET BY MOUTH EVERY DAY DIRECTED 10/07 completed Not Available Not Available Not Available ursodiol 500 mg tablet TAKE 1 TABLET BY MOUTH EVERY 8 HOURS 12/03 completed Not Available Not Available Not Available 06/27 completed Not Available Not Available Not Available doxylamin e 10 mg-pyrido xine (vit B6) 10 mg tablet,de layed release 10/04 completed Not Available Not Available Not Available Fioricet 50 mg-300 mg-40 mg capsule Take 1 capsule every 6 hours by oral route as needed. 10/04 completed Not Available Not Available Not Available Tru Fe 1.5/30 (28) 1.5 mg-30 mcg (21)/75 mg (7) tablet take 1 tablet by oral route every day 05/24 completed Not Available Not Available Not Available potassium chloride ER 20 mEq tablet,ex tended release TAKE 1 TABLET BY MOUTH ONCE 10/24 completed Not Available Not Available Not Available 28 mg-800 mcg tablet 10/29 completed Prescrib ed Elsewher e: Yes Loca tion: [facility] odify By: [email or web address] Natasha etienne DateTime : 11/11/19 09:45:00 AM Not Available Not Available Not Available Slynd 4 mg (28) tablet Take 1 tablet every day by oral route. 05/22 completed Not Available Not Available Not Available Nextstell is 3 mg-14.2 mg (28) tablet TAKE 1 TABLET BY MOUTH EVERY DAY 09/26 completed Not Available Not Available Not Available Vitals Date Recorded Body height Body mass index (BMI) Body weight Systolic blood pressure Diastolic blood pressure Provider Name and Address Organization Details Last Updated DateTime 12/04/2023 165.1 cm 24.6 kg/m2 88293.67 g 125 mm[Hg] 88 mm[Hg] [facility] 4 11:26:57 Date Recorded Body height Body mass index (BMI) Body weight Systolic blood pressure Diastolic blood pressure Provider Name and Address Organization Details Last Updated DateTime 10/07/2024 165.1 cm 23.5 kg/m2 55182.52 g 120 mm[Hg] 78 mm[Hg] Loretta Lakia [facility] 5 18:09:52 Date Recorded Body height Body mass index (BMI) Body weight Body weight Systolic blood pressure Diastolic blood pressure Systolic blood pressure Diastolic blood pressure Provider Name and Address Organization Details Last Updated DateTime 5 165.1 cm 23.5 kg/m2 46893.5 2 g 26017.5 2417 g 116 mm[Hg] 77 mm[Hg] 116 mm[Hg] 77 mm[Hg] Loretta Dorman [facility] 5 16:58:26 Social History Question Answer Notes LastModified by Organizat ion Details LastModified Time Tobacco Smoking Status Never Smoker Adri Benavidez [facility] 08/07/2023 13:47:27 Do You Have An Advance Directive? No [email or web address] Information not available 10/10/2021 What Is Your Level Of Alcohol Consumption? None [email or web address] Information not available 04/30/2023 If You Are , What Was Your Level Of Alcohol Consumption Prior To ? None Information not available 08/07/2023 Are You Blind Or Do You Have Difficulty Seeing? No [email or web address] Information not available 02/22/2021 What Is Your Level Of Caffeine Consumption? Occasional [email or web address] Information not available 02/22/2021 How Much Tobacco Do You Chew? None [email or web address] Information not available 10/10/2021 In The 14 Days Before Symptom Onset, Have You Had Close Contact With A Laboratory-confir med COVID-19 While That Case Was Ill? No [email or web address] Information not available 02/22/2021 In The 14 Days Before Symptom Onset, Have You Had Close Contact With A Person Who Is Under Investigation For COVID-19 While That Person Was Ill? No [email or web address] Information not available 02/22/2021 Have You Been To An Area Known To Be High Risk For COVID-19? No Information not available 02/22/2021 Are You Deaf Or Do You Have Serious Difficulty Hearing? No [email or web address] Information not available 02/22/2021 What Type Of Diet Are You Following? REGULAR [email or web address] Information not available 02/22/2021 What Is The Highest Grade Or Level Of School You Have Completed Or The Highest Degree You Have Received? 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 No [email or web address] Information not available 08/07/2023 Do You Use Your Seat Belt Or Car Seat Routinely? Yes [email or web address] Information not available 02/22/2021 Do You Have Smoke And Carbon Monoxide Detectors In Your Home? Yes [email or web address] Information not available 02/22/2021 How Much Tobacco Do You Smoke? No [email or web address] Information not available 10/10/2021 Do You Feel Stressed (tense, Restless, Nervous, Or Anxious, Or Unable To Sleep At Night)? [id number] [email or web address] Information not available 10/10/2021 Do You Use Any Illicit Or Recreational Drugs? No [email or web address] Information not available 02/22/2021 Do You Use Sunscreen Routinely? Yes [email or web address] Information not available 02/22/2021 Has Tobacco Cessation Counseling Been Provided? No [email or web address] Information not available 08/07/2023 Have You Used IV Drugs? No [email or web address] Information not available 10/10/2021 Do You Or Have You Ever Used Any Other Forms Of Tobacco Or Nicotine? No Information not available 08/07/2023 Sex: Unknown Functional Status Question Answer Note LastModified by Organizat ion Details LastModified Time Do you have difficulty walking or climbing stairs? No [email or web address] Information not available 08/07/2023 Are you able to walk? YESWOREST [email or web address] Information not available 02/22/2021 Are you able to care for yourself? Yes [email or web address] Information not available 08/07/2023 Do you have difficulty dressing or bathing? No [email or web address] Information not available 08/07/2023 What is your exercise level? Occasional [email or web address] Information not available 02/22/2021 Mental Status None recorded. Family History Relationship Description Onset Age of this Age Resolved Age Notes LastModified by Organization Details LastModified Time Maternal Grandmother Diabetes mellitus [email or web address] Not available 2019 14:03:09 Maternal Grandmother Hypertensive disorder [email or web address] Not available 2019 14:03:21 Medical History Condition Response Other N Blood Transfusion N Dermatologic Disorders N Gestational Diabetes N Anxiety Disorder Y Autoimmune disease N Arthritis N Polyps N Infertility N Acid Reflux (GERD) N Cancer N Varicosities N Stroke N Neurologic/Epilepsy N Fibromyalgia N Headaches Y Kidney Disease N Heart Problems N Kidney or Bladder Problems N Eating Disorder N Art (IVF or FET) N Hepatitis/Liver Disease N No Past Medical History N Urinary Tract Infection N Asthma Y Trauma/Violence N Thrombophilias N Allergies (Food, seasonal, environmental ) Y Breast Cancer N Drug/Latex Allergies/Reactions N Lung Disease N Defects or Inherited Disease N Breast Problem N Hematologic disorders N Anesthesia Complications N History of STI N Deep Vein Thrombosis N Polycystic ovary syndrome N History of abnormal pap N Endometriosis N High Cholesterol N Thyroid Problems N GI Problems N Anemia N Psychiatric Illness N Ovarian Cancer N Diabetes N Pulmonary (TB, Asthma) N Eczema N Abuse/Domestic Violence N Depression/ depression N Heart Disease N Pre-Eclampsia Y Hypertension N Osteoporosis N Gynecological History Statement/Question Response Abnormal Pap N Flow Moderate Date of Last Mammogram Date of LMP 08/08/2024 Was last menstrual period normal Y STIs/STDs N HPV Vaccine N Current Control Method Are cycles usually normal Y Sexually Active? Y Menses Monthly Y Date of DEXA bone scan Age of first menstrual cycle 13 Date of Last Pap Smear 10/07/2024 Sexual Problems? N LMP Definite N Obstetrics History GPAL:G 5 P 2 1 1 3 Type Value Full Term 2 Spontaneous 1 Premature 1 Living 3 Total 5 Past Encounters Encounter ID Performer Location Encounter Start Date Encounter Closed Date Diagnosis/Indication Diagnosis SNOMED-CT Code Diagnosis ICD10 Code Diagnosis Note [id number] Dylon Snyder MD [facility] [address] [address] 05/24/2020 13:51:42 05/24/2020 15:20:16 Abnormal uterine bleeding [id number] 9100 N93.9 patient is a 24-year-ol d female who presents for abnormal uterine bleeding. She has used Depo Provera historical ly. She had abnormal bleeding on Depo-Prove ra. The patient was placed on oral contracept tramaine pills. Uncertain if it was low-dose pill or a regular dose pill. Throughout the 5 months that she took a regular dose pill she had bleeding. It was irregularl y irregular bleeding pattern. She discontinu ed control pills and has continued to have irregularl y irregular bleeding. We did not fully investigat e her bleeding when she was put on control pills. Her bleeding seemed normal Depo-Prove ra type bleeding at the time. Now we will obtain a pelvic ultrasound . She has been examined recently. We will obtain a laboratory evaluation as well. She return to discuss the results and consider treatment plan. [id number] Dylon Snyder MD [facility] [address],[place] [address] 02/22/2021 12:00:37 02/22/2021 14:10:03 Missed miscarriage [id number] O02.1 [id number] Sana Britt [facility] [address],[place] [address] 02/22/2021 11:59:27 02/22/2021 13:42:07 Missed miscarriage [id number] O02.1 Z3A.01 [id number] Dylon Snyder MD [facility] [address],[place] [address] 03/02/2021 11:13:00 03/02/2021 11:14:13 [id number] Dylon Snyder MD [facility] [address],[place] [address] 03/09/2021 15:42:28 03/09/2021 16:45:48 Missed miscarriage [id number] O02.1 Z3A.01 This patient is a 25-year-ol d female presents for follow-up after D& C. Her test positive. She return in 2 weeks for repeat urine test. She had a missed A/B. She has had 1 vaginal already. She has no complaints . She denies any vaginal bleeding. She does have some low back pain. Recommende d conservati ve therapy observatio n. They do not require any contracept ion. They are going to try to get as soon as possible. She was given precaution s there. [id number] Adrienne Durand [facility] [address],[place] [address] 10/10/2021 14:30:43 10/10/2021 14:55:45 [id number] Enriqueta Simonsralphwaldo [facility] [address],[place] [address] 1 10/10/2021 14:33:27 10/10/2021 15:42:52 test positive [id number] Z32.01 Risk factors addressed: Tobacco Cessation, Safe Sexual Practices, environmen stephanie, work hazards, travel restrictio ns, seat belt use.Eat a health well balanced diet, avoid alcohol, tobacco, and street drugs.Enga ge in daily low impact exercise, avoid temperatur e extremes, and cat, rodent, and bird feces.Avoi d travel to areas where zika virus is a concern.Of fered cf/sma/nip t. Desires NIPT. Handouts given and discussed with patient.Ch ildbirth classes recommende d.New OB sheet given.If previous , counseling .Pt verbalizes that she understand s the importance of above instructio ns.All questions were answered.P atient reminded to have annual well woman examinatio n and address preventati ve healthcare . [id number] Adrienne Durand [facility] [address],[place] [address] 11/07/2021 11:26:53 11/07/2021 12:30:12 screening [id number] Z36.82 [id number] Meseret Hanna MD [facility] [address],[place] [address] 11/07/2021 11:27:33 11/07/2021 12:34:38 Routine care 460557478 Z34.91 Headache 89859561 R51.9 [id number] Zita Licona CNM [facility] [address],[place] [address] 12/06/2021 10:46:27 12/06/2021 11:26:46 Routine care [id number] Z34.92 [id number] Adrienne Durand [facility] [address],[place] [address] 12/06/2021 10:48:12 12/06/2021 13:23:57 [id number] Adrienne Durand [facility] [address],[place] [address] 01/04/2022 09:51:13 01/04/2022 10:55:30 screening [id number] Z36.3 [id number] Dylon Snyder MD [facility] [address],[place] [address] 01/04/2022 09:52:38 01/04/2022 12:03:32 Routine care [id number] Z34.82 [id number] [facility] [address],[place] [address] 01/29/2022 10:54:29 01/29/2022 13:58:48 screening 842146335 Z36.2 Z3A.24 [id number] Meseret Hanna MD [facility] [address] [place] [address] 01/29/2022 11:34:51 01/29/2022 12:21:11 Routine care 305855597 Z34.91 [id number] [facility] [address] [place] [address] 02/28/2022 11:02:16 02/28/2022 12:57:10 Routine care 916722677 Z34.92 [id number] Sana Britt [facility] [address] [place] [address] 03/13/2022 11:01:25 03/13/2022 11:53:14 Uterine size for dates discrepancy 067110077 O26.843 Z3A.30 [id number] [facility] [address] [place] [address] 03/14/2022 11:22:42 03/14/2022 12:32:31 Routine care 302057881 Z34.92 [id number] Zita Licona [facility] [address],[place] [address] 03/28/2022 10:02:11 03/28/2022 10:38:22 Routine care 197752461 Z34.92 [id number] Zita Licona [facility] [address],[place] [address] 04/11/2022 11:49:51 04/11/2022 12:46:21 Routine care 476168256 Z34.92 Pruritic disorder 487951 [id number] [facility] [address],[place] [address] 04/11/2022 12:18:15 04/11/2022 13:07:09 Cholestasis of 838945203 O26.619 [id number] Zaira Albarran [facility] [address],[place] [address] 04/11/2022 13:03:25 04/11/2022 14:06:44 condition affecting obstetrical care of mother 373415550 O36.83[id number] [facility] [address],[place] [address] 04/18/2022 11:52:01 04/18/2022 12:32:46 Cholestasis of 565436646 O26.619 [id number] Zaira Albarran [facility] [address],[place] [address] 04/18/2022 11:52:47 04/19/2022 14:38:55 Cholestasis of 158397508 O26.619 [id number] Zita Licona [facility] [address],[place] [address] 04/18/2022 11:53:23 04/18/2022 13:53:41 Routine care 840623023 Z34.[id number] [facility] [address],[place] [address] 04/20/2022 10:25:25 04/20/2022 11:15:16 Cholestasis of 084740579 O26.619 [id number] Zita Licona [facility] [address],[place] [address] 04/25/2022 11:38:30 04/25/2022 12:47:34 Routine care 935301167 Z34.[id number] [facility] [address],[place] [address] 04/25/2022 11:49:58 04/25/2022 12:31:23 Cholestasis of 084938640 O26.619 [id number] Adrienne Malvern [facility] [address],[place] [address] 04/25/2022 11:49:58 04/25/2022 12:31:23 Cholestasis of [id number] O26.619 O26.843 Z3A.36 [id number] Loretta Dorman [facility] [address],[place] [address] 06/27/2022 10:56:23 06/27/2022 12:01:47 care 685225652 Z39.2 [id number] Zita Licona [facility] [address],[place] [address] 09/26/2022 12:09:32 09/26/2022 12:58:27 Contraception care management 773549633 Z30.9 start slynd, give one month to be effective may have samples if not covered 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 Exam today within normal limits.2. U/S today c/w LMP; EDC . Pap smear done: will f/u as indicated. 4. Hx of preeclamps ia in prior ; discussed bASA ppx starting at 12 weeks. Patient to buy OTC5. Hx of childhood asthma, no meds currently6 . ACOG guidelines and plan of care for reviewed with patient. All questions answered.7 . Return to office in 2-3 weeks for new OB visit8. Genetic screening: desired, ordered today. [id number] [place] [address],[place] [address] 04/30/2023 11:50:08 04/30/2023 12:16:35 [id number] [place] [address],[place] [address] 05/22/2023 10:53:37 05/22/2023 11:37:28 screening 105412470 Z36.82 Z3A.13 [id number] Zita Licona [facility] [address],[place] [address] 05/22/2023 10:54:18 05/22/2023 12:30:53 Gestation period, 13 weeks 44368678 Z3A.13 Nausea 479251620 R11.0 [id number] Zita Licona [facility] [address],[place] [address] 06/19/2023 16:50:02 06/19/2023 17:23:29 Routine care 288780099 Z34.92 [id number] [facility] [address],[place] [address] 07/10/2023 10:34:15 07/10/2023 11:46:14 screening for malformation 079610382 Z36.3 Z3A.20 [id number] Zita Licona [facility] [address],[place] [address] 07/10/2023 10:37:49 07/10/2023 12:01:41 Routine care 985638943 Z34.92 [id number] [facility] [address],[place] [address] 08/07/2023 13:46:45 08/07/2023 14:22:40 Routine care 128101102 Z34.92 [id number] [facility] [address],[place] [address] 09/06/2023 13:55:37 09/06/2023 14:57:22 Itching of skin 561164867 L29.9 Routine an tenatal care 239798715 Z34.92 [id number] [facility] [address],[place] [address] 09/06/2023 13:52:36 09/06/2023 14:35:13 Uterine size for dates discrepancy 446223889 O26.843 Z3A.28 [id number] [facility] [address],[place] [address] 09/20/2023 12:43:49 09/20/2023 13:27:01 Routine care 595648228 Z34.92 [id number] [facility] [address],[place] [address] 10/04/2023 15:34:47 10/04/2023 16:17:22 Routine care 645202602 Z34.92 [id number] [facility] [address],[place] [address] 10/10/2023 14:47:34 10/10/2023 15:39:56 Uterine size for dates discrepancy 533841216 O26.843 Z3A.33 [id number] [facility] [address],[place] [address] 10/11/2023 12:37:34 10/11/2023 13:28:02 Routine care 289197814 Z34.92 [id number] Zita Licona CNM [facility] [address],[place] [address] 10/16/2023 16:53:15 10/16/2023 17:54:24 Itching of skin 225767431 L29.9 Routine an tenatal care 171569925 Z34.92 [id number] [facility] [address],[place] [address] 10/24/2023 09:57:19 10/24/2023 10:22:47 Cholestasis of 642505788 O26.619 Z3A.35 [id number] Zaira Albarran [facility] [address],[place] [address] 10/24/2023 09:57:48 10/24/2023 13:42:20 59711214 Z33.1 Cholestasi s of 926059734 O26.619 Z3A.35 [id number] Zita Licona [facility] [address],[place] [address] 10/25/2023 12:15:04 10/25/2023 12:59:59 Routine care 760390660 Z34.92 [id number] [facility][1] [address],[place] [address] 11/01/2023 11:21:01 11/01/2023 13:13:24 Cholestasis of 962373564 O26.619 Z3A.35 [id number] [facility][1] [address],[place] [address] 11/01/2023 11:21:21 11/01/2023 13:20:39 Cholestasis of 514987092 O26.619 Z3A.35 [id number] Zita Licona [facility] [address],[place] [address] 11/01/2023 11:21:38 11/01/2023 13:27:09 Routine care 224381858 Z34.92 Cholestasi s of 764966066 O26.643 [id number] Loretta Dorman [facility] [address],[place] [address] 12/04/2023 11:14:04 12/04/2023 12:17:51 care 469863227 Z39.2 normal visit, f/u 6 mo wwe [id number] [facility] [address],[place] [address] 10/07/2024 16:57:23 10/07/2024 17:42:05 [id number] Zita Licona [facility] [address],[place] [address] 10/07/2024 16:58:02 10/09/2024 03:23:48 Venereal disease screening 399733683 Z11.3 Nausea and vomiting 1693 2000 R11.2 Amenorrhea 96366164 N91. 2 [id number] [facility] [address],[place] [address] 10/28/2024 15:58:29 10/28/2024 16:28:48 screening 602048405 Z36.82 Z3A.11 [id number] [facility] [address],[place] [address] 10/28/2024 15:59:13 10/28/2024 17:47:57 Gestation period, 11 weeks 60562349 Z3A.11 Routine an tenatal care 159249596 Z34.92 Health Concerns Section Related Observation LastModified by Organization Detai ls LastModified Time None Recorded Concern Status LastModified by Organization Details LastModified Time None Recorded Advance Directives Directive N: Payers Encounter Date Sequence Insurance Name Policy Number Policy Dawson Covered Member ID Dawson Member ID Guarantor Name 12/04/2023 1 [place] [id number] Demarco Harding [id number] Anai Harding 12/04/2023 2 [facility] - DOS ON OR AFTER 21 (MEDICAID REPLACEMENT - HMO) Anai Silver [id number] Anai Harding 10/07/2024 1 [place] [id number] Demarcobrayan Montemayoror [id number] Anai Kosydor 10/07/2024 2 [facility] ON OR AFTER 02/09/21 (MEDICAID REPLACEMENT - HMO) Anai Coffee [id number] Anai Kosydor 10/07/2024 1 [place] [id number] Demarco Kosydor [id number] Anai Kosydor 10/07/2024 2 [facility] ON OR AFTER 02/09/21 (MEDICAID REPLACEMENT - HMO) Anai Coffee [id number] Anai Kosydor 10/28/2024 1 [place] [id number] Demarco Kosydor [id number] Anai Kosydor 10/28/2024 2 [facility] ON OR AFTER 02/09/21 (MEDICAID REPLACEMENT - HMO) Anai Coffee [id number] Anai Kosydor 10/28/2024 1 [place] [id number] Demarcobrayan Montemayoror [id number] Anai Kosydor 10/28/2024 2 [facility] ON OR AFTER 02/09/21 (MEDICAID REPLACEMENT - HMO) Anai Coffee [id number] Anai Kosydor Notes Date Note Type Note Provider Name and Address Organization Details Recorded Time 12/04/2023 text/html VisitReported bypatient.Quality:N Context:complicatio ns of labor: none; feeding choice: breast; resumed menstrual bleeding no; cholestasis Associated Symptoms:no abnormal bleeding; no vaginal discharge; no pelvic pain; no constipation; no fecal incontinence; no dysuria; no urinary incontinence; no fever; no problems; no mastitis; normal mood Contraception Plan:declines contraceptionNotes: unsure about bcm, has consult for vasectomy Loretta gonzalez [facility] 12/04/2023 16:56:51 10/07/2024 text/html regular cycles, then amenorrhea, +UPT, doing well, nausea reglan not working wants to try zofranhx cholestasis and preeclampsia, anemia Zita Licona CNM [address], [place], [address], [place] [facility] 10/08/2024 20:01:19 OBGyn Episode Ob Episode Information Episode Created Date Number of Fetuses Patient Bloodtype Patient rh Status Prepregnancy Weight lbs Domestic Partner Domestic Partner Phone Father Name Yield Loss Inspector Status 05/24/20 20 1 CLOSED Fetus Data First Name Last Name Admitted to NICU Weight (g) Sex Living Outcome Pediatric Complications Fetus ID Race Codes Race Delivery Type 3033.16 9704 F Full Term 5322 Vaginal Delivery Juan Antonio Calculation Initial Juan Antonio Date Initial Exam Date Initial Exam Provider Initial Ultrasound Date Last Menstrual Period Date Ultra Sound Weeks Gestation 0 Eighteen To Twenty Week Juan Antonio Update Ultra Sound Date Fundal Height At Umbil Quickening Date Ultra Sound Latest Weeks Gestation Final Juan Antonio Confirmed By Final Juan Antonio Confirmed Date Final Juan Antonio Date Ultra Sound Latest Days Gestation 0 0 Menstrual History Last Menstrual Date Menses Monthly On Bcp Conception Prior Menses Frequency Hcg Plus Date Menarche Onset Age Delivery Information Delivery Date Delivery Type Labor Anesthesia Weeks Gestation Incision Type Labor Labor Length Hrs Delivered By Post Complications Tubal Sterilization Discharge Date Comments 9 39 preeclam p samm Discharge Information Feeding Method Contraceptive Method Maternal HG B and HCT Levels Ob Episode Information Episode Created Date Number of Fetuses Patient Bloodtype Patient rh Status Prepregnancy Weight lbs Domestic Partner Domestic Partner Phone Father Name Yield Loss Inspector Status 02/23/20 21 1 CLOSED Fetus Data First Name Last Name Admitted to NICU Weight (g) Sex Living Outcome Pediatric Complications Fetus ID Race Codes Race Delivery Type , Spontane ous [id number] Juan Antonio Calculation Initial Juan Antonio Date Initial Exam Date Initial Exam Provider Initial Ultrasound Date Last Menstrual Period Date Ultra Sound Weeks Gestation 0 Eighteen To Twenty Week Juan Antonio Update Ultra Sound Date Fundal Height At Umbil Quickening Date Ultra Sound Latest Weeks Gestation Final Juan Antonio Confirmed By Final Juan Antonio Confirmed Date Final Juan Antonio Date Ultra Sound Latest Days Gestation 0 0 Menstrual History Last Menstrual Date Menses Monthly On Bcp Conception Prior Menses Frequency Hcg Plus Date Menarche Onset Age Delivery Information Delivery Date Delivery Type Labor Anesthesia Weeks Gestation Incision Type Labor Labor Length Hrs Delivered By Post Complications Tubal Sterilization Discharge Date Comments 1 Discharge Information Feeding Method Contraceptive Method Maternal HG B and HCT Levels Ob Episode Information Episode Created Date Number of Fetuses Patient Bloodtype Patient rh Status Prepregnancy Weight lbs Domestic Partner Domestic Partner Phone Father Name Yield Loss Inspector Status 11/08/19 22 1 141 CLOSED Fetus Data First Name Last Name Admitted to NICU Weight (g) Sex Living Outcome Pediatric Complications Fetus ID Race Codes Race Delivery Type 2438.05 7 F true Full Term [id number] Vaginal Delivery Problems Problem Notes hypoglycemic episode, hx of as well.hx preeclampsia last Problem Name Start Date End Date Resolution Snomed Code Not e Headache disorder [id number] fi oricet prn Juan Antonio Calculation Initial Juan Antonio Date Initial Exam Date Initial Exam Provider Initial Ultrasound Date Last Menstrual Period Date Ultra Sound Weeks Gestation 05/19/2022 11/07/2021 10/10/2021 08/12/2021 8 Eighteen To Twenty Week Juan Antonio Update Ultra Sound Date Fundal Height At Umbil Quickening Date Ultra Sound Latest Weeks Gestation Final Juan Antonio Confirmed By Final Juan Antonio Confirmed Date Final Juan Antonio Date Ultra Sound Latest Days Gestation 0 11/07/2021 05/19/20 22 0 Pre-papito Flowsheet Flowsheet Date 11/07/2021 Coronel Score Blood Edema Fundus Height Fundus Units Glucose Ketones Leukocytes Nitrite Labor Signs Protein Cervic Dilation Cervic Effacement Cervic Station neg none Type Weight in lbs Pre/Post Dialysis Refused Weight 138.197853941510 BP Diastolic BP Location Tested BP Systolic BP Type 67 109 Fetus Heart Rate Present Fetus Movement A No Comments Anai is a 26yo at 1 2.3 for care. Her history is noncontributory- term last , no complications. She is having a lot of nausea still. on zofran, failed reglan. Also having a lot of QUINTANILLA, even when hydrated. tylenol not working at all. Will use fioricet sparingly. Labs and NIPT today. US today normal NT and ULYSSES resolved. Flowsheet Date 12/06/2021 Coronel Score Blood Edema Fundus Height Fundus Units Glucose Ketones Leukocytes Nitrite Labor Signs Protein Cervic Dilation Cervic Effacement Cervic Station neg trace none trace Type Weight in lbs Pre/Post Dialysis Refused Weight 142.636711993811 BP Diastolic BP Location Tested BP Systolic BP Type 75 116 Fetus Heart Rate Present Fetus Movement A Yes Comments PATIENT STATES THAT HAVING H EADACHE, BACK PAIN, SWELLING AND NAUSEA. US coming up, still some nausea, rx for fioricet not approved, quintanilla daily, will check with pharmacy, needs blood work today, f/u 4 weeks anatomy, precautions reviewed Flowsheet Date 12/06/2021 Coronel Score Blood Edema Fundus Height Fundus Units Glucose Ketones Leukocytes Nitrite Labor Signs Protein Cervic Dilation Cervic Effacement Cervic Station Type Weight in lbs Pre/Post Dialysis Refused BP Diastolic BP Location Tested BP Systolic BP Type Fetus Heart Rate Present Fetus Movement Comments Flowsheet Date 01/04/2022 Coronel Score Blood Edema Fundus Height Fundus Units Glucose Ketones Leukocytes Nitrite Labor Signs Protein Cervic Dilation Cervic Effacement Cervic Station Type Weight in lbs Pre/Post Dialysis Refused BP Diastolic BP Location Tested BP Systolic BP Type Fetus Heart Rate Present Fetus Movement Comments Flowsheet Date 01/04/2022 Coronel Score Blood Edema Fundus Height Fundus Units Glucose Ketones Leukocytes Nitrite Labor Signs Protein Cervic Dilation Cervic Effacement Cervic Station 20 Type Weight in lbs Pre/Post Dialysis Refused Weight 145.9263732103 BP Diastolic BP Location Tested BP Systolic BP Type 72 R arm 114 sitting Fetus Heart Rate Present A 145 Fetus Movement A Yes Comments No complaints, no problems, continues to have headaches, recommended Excedrin tension Headache, incomplete anatomy today, repeat anatomy in 4 weeks, return to see us in 4 weeks Flowsheet Date 01/29/2022 Coronel Score Blood Edema Fundus Height Fundus Units Glucose Ketones Leukocytes Nitrite Labor Signs Protein Cervic Dilation Cervic Effacement Cervic Station Type Weight in lbs Pre/Post Dialysis Refused BP Diastolic BP Location Tested BP Systolic BP Type Fetus Heart Rate Present Fetus Movement Comments Flowsheet Date 01/29/2022 Coronel Score Blood Edema Fundus Height Fundus Units Glucose Ketones Leukocytes Nitrite Labor Signs Protein Cervic Dilation Cervic Effacement Cervic Station neg trace Type Weight in lbs Pre/Post Dialysis Refused Weight 149.171957119798 BP Diastolic BP Location Tested BP Systolic BP Type 65 104 Fetus Heart Rate Present A 150 Fetus Movement A Yes Comments Doing well. Worried baby too small, 36% on growth today, discussed. Anatomy now complete. GCT next. Discuss Tdap next. Flowsheet Date 02/28/2022 Coronel Score Blood Edema Fundus Height Fundus Units Glucose Ketones Leukocytes Nitrite Labor Signs Protein Cervic Dilation Cervic Effacement Cervic Station neg trace none trace Type Weight in lbs Pre/Post Dialysis Refused Weight 156.533144071283 BP Diastolic BP Location Tested BP Systolic BP Type 72 109 Fetus Heart Rate Present A 152 Fetus Movement A Yes Comments patient is having some swell ing, back pain, and BH contractions. growth at next visit, doing well [place] are not as bad, would like maternity support belt ok to see chiropractor start asa had tdap for work in , f/u as scheduled Flowsheet Date 03/13/2022 Coronel Score Blood Edema Fundus Height Fundus Units Glucose Ketones Leukocytes Nitrite Labor Signs Protein Cervic Dilation Cervic Effacement Cervic Station Type Weight in lbs Pre/Post Dialysis Refused BP Diastolic BP Location Tested BP Systolic BP Type Fetus Heart Rate Present Fetus Movement Comments Flowsheet Date 03/14/2022 Coronel Score Blood Edema Fundus Height Fundus Units Glucose Ketones Leukocytes Nitrite Labor Signs Protein Cervic Dilation Cervic Effacement Cervic Station neg none none trace Type Weight in lbs Pre/Post Dialysis Refused Weight 157.147477093678 BP Diastolic BP Location Tested BP Systolic BP Type 68 107 Fetus Heart Rate Present A 138 Fetus Movement A Yes Comments patient is having some nause a and headaches. small meals, protein, precautions reviewed, us yesterday f/u 2 weeks Flowsheet Date 03/28/2022 Coronel Score Blood Edema Fundus Height Fundus Units Glucose Ketones Leukocytes Nitrite Labor Signs Protein Cervic Dilation Cervic Effacement Cervic Station neg none 32 none trace Type Weight in lbs Pre/Post Dialysis Refused Weight 161.488696652395 BP Diastolic BP Location Tested BP Systolic BP Type 69 110 Fetus Heart Rate Present A 153 Present Fetus Movement A Yes Comments patient is having back pain, contractions, pressure and swelling. reviewed precautions, has preadmit scheduled, f/u 2 weeks Flowsheet Date 04/11/2022 Coronel Score Blood Edema Fundus Height Fundus Units Glucose Ketones Leukocytes Nitrite Labor Signs Protein Cervic Dilation Cervic Effacement Cervic Station Type Weight in lbs Pre/Post Dialysis Refused BP Diastolic BP Location Tested BP Systolic BP Type Fetus Heart Rate Present Fetus Movement Comments Flowsheet Date 04/11/2022 Coronel Score Blood Edema Fundus Height Fundus Units Glucose Ketones Leukocytes Nitrite Labor Signs Protein Cervic Dilation Cervic Effacement Cervic Station neg none none trace Type Weight in lbs Pre/Post Dialysis Refused Weight 162.319963129388 BP Diastolic BP Location Tested BP Systolic BP Type 64 106 Fetus Heart Rate Present Fetus Movement A Yes Comments patient states that having p ain, contractions, cramping, discharge, pressure, nausea and lightheaded . precautions reviewed, really bothered by itching sadaf at night, all over nothing works to stop it suspect cholestasis, labs drawn nst reviewed rec if tests come back positive ok to start ursadiol and nst today Flowsheet Date 04/11/2022 Coronel Score Blood Edema Fundus Height Fundus Units Glucose Ketones Leukocytes Nitrite Labor Signs Protein Cervic Dilation Cervic Effacement Cervic Station Type Weight in lbs Pre/Post Dialysis Refused BP Diastolic BP Location Tested BP Systolic BP Type Fetus Heart Rate Present Fetus Movement Comments Flowsheet Date 04/18/2022 Coronel Score Blood Edema Fundus Height Fundus Units Glucose Ketones Leukocytes Nitrite Labor Signs Protein Cervic Dilation Cervic Effacement Cervic Station Type Weight in lbs Pre/Post Dialysis Refused BP Diastolic BP Location Tested BP Systolic BP Type Fetus Heart Rate Present Fetus Movement Comments Flowsheet Date 04/18/2022 Coronel Score Blood Edema Fundus Height Fundus Units Glucose Ketones Leukocytes Nitrite Labor Signs Protein Cervic Dilation Cervic Effacement Cervic Station Type Weight in lbs Pre/Post Dialysis Refused BP Diastolic BP Location Tested BP Systolic BP Type Fetus Heart Rate Present Fetus Movement Comments Flowsheet Date 04/18/2022 Coronel Score Blood Edema Fundus Height Fundus Units Glucose Ketones Leukocytes Nitrite Labor Signs Protein Cervic Dilation Cervic Effacement Cervic Station Type Weight in lbs Pre/Post Dialysis Refused BP Diastolic BP Location Tested BP Systolic BP Type Fetus Heart Rate Present Fetus Movement Comments bpp 03/19 NST reassuring non r eactive, plan rpt nst on saturday. reviewed cholestasis have 37 week IOL scheduled Flowsheet Date 04/20/2022 Coronel Score Blood Edema Fundus Height Fundus Units Glucose Ketones Leukocytes Nitrite Labor Signs Protein Cervic Dilation Cervic Effacement Cervic Station Type Weight in lbs Pre/Post Dialysis Refused BP Diastolic BP Location Tested BP Systolic BP Type Fetus Heart Rate Present Fetus Movement Comments Flowsheet Date 04/25/2022 Coronel Score Blood Edema Fundus Height Fundus Units Glucose Ketones Leukocytes Nitrite Labor Signs Protein Cervic Dilation Cervic Effacement Cervic Station neg none none trace Type Weight in lbs Pre/Post Dialysis Refused Weight 163.962608980717 BP Diastolic BP Location Tested BP Systolic BP Type 73 111 Fetus Heart Rate Present Fetus Movement A Yes Comments patient is having pain, cont ractions and nausea. itching is improving, nst and growth tomorrow, iol on saturday Flowsheet Date 04/25/2022 Coronel Score Blood Edema Fundus Height Fundus Units Glucose Ketones Leukocytes Nitrite Labor Signs Protein Cervic Dilation Cervic Effacement Cervic Station Type Weight in lbs Pre/Post Dialysis Refused BP Diastolic BP Location Tested BP Systolic BP Type Fetus Heart Rate Present Fetus Movement Comments Flowsheet Date 04/25/2022 Coronel Score Blood Edema Fundus Height Fundus Units Glucose Ketones Leukocytes Nitrite Labor Signs Protein Cervic Dilation Cervic Effacement Cervic Station Type Weight in lbs Pre/Post Dialysis Refused BP Diastolic BP Location Tested BP Systolic BP Type Fetus Heart Rate Present Fetus Movement Comments Menstrual History Last Menstrual Date Menses Monthly On Bcp Conception Prior Menses Frequency Hcg Plus Date Menarche Onset Age 0108/12/2021 Genetic Screening And Infection History Question Response Note Mental Retardation/Autism false Patient's Age Will Be 35 Years Or Older At Estim ated Date of Delivery false Thalassemia (Norwegian, South Korean, Mediterranean, Or Background): MCV < 80 false Neural Tube Defect (Meningomyelocele, Spina Bifi da, Or Anencephaly) false Congenital Heart Defect false Down Syndrome false Alex-Sachs (eg, Scientology, Cajun, New Zealander-Jordanian) f alse Zane Disease false Sickle Cell Disease Or Trait () false Hemophilia Or Other Blood Disorders false Muscular Dystrophy false Cystic Fibrosis false [place]'s Ch[place] false Intellectual Disability/Autism false If Yes, Was Person Tested For Fragile X? false Other Inherited Genetic Or Chromosomal Disorder false Maternal Metabolic Disorder (eg, Type 1 Diabetes , PKU) false Patient Or Baby's Father Had A Child With Defects Not Listed Above false Recurrent Loss, Or A Stillbirth false Medications (including Suppl ements, Vitamins, Herbs, OTC Drugs), Illicit/Recreational Drugs, Alcohol false If Yes, Agent(s) And Strength/Dosage false Any Other Genetic History false Live With Someone With TB Or Exposed To TB false Patient Or Partner Has History Of Genital Herpes false Rash Or Viral Illness Since Last Menstrual Perio d false History Of STD, Gonorrhea, Chlamydia, HPV, Syphi lis false Other Infection History false History of HIV false History of Hepatitis false Prior GBS-infected child false Hemoglobinopathy Or Carrier false Other Structural Defect false Recent Travel History Outside of Country false Delivery Information Delivery Date Delivery Type Labor Anesthesia Weeks Gestation Incision Type Labor Labor Length Hrs Delivered By Post Complications Tubal Sterilization Discharge Date Comments 2 Induce d None 37.2 false Zita Licona CNWisam Cholestas is & Gbs+ Discharge Information Feeding Method Contraceptive Method Maternal HG B and HCT Levels Breast Ob Episode Information Episode Created Date Number of Fetuses Patient Bloodtype Patient rh Status Prepregnancy Weight lbs Domestic Partner Domestic Partner Phone Father Name Yield Loss Inspector Status 10/29/19 25 1 141 Demarco Molina OPEN Fetus Data First Name Last Name Admitted to NICU Weight (g) Sex Living Outcome Pediatric Complications Fetus ID Race Codes Race Delivery Type [id number] Problems Problem Notes Problem Name Start Date End Date Resolution Snomed Code Not e History of cholestasis in [id number] x2 Past history of pre-eclampsia 10/28/2024 [id number] History of anemia [id number] Anxiety [id number] fluoxetine 10 mg daily Juan Antonio Calculation Initial Juan Antonio Date Initial Exam Date Initial Exam Provider Initial Ultrasound Date Last Menstrual Period Date Ultra Sound Weeks Gestation 05/15/2025 10/28/2024 Zita Licona 10/07/2024 08/08/2025 8 Eighteen To Twenty Week Juan Antonio Update Ultra Sound Date Fundal Height At Umbil Quickening Date Ultra Sound Latest Weeks Gestation Final Juan Antonio Confirmed By Final Juan Antonio Confirmed Date Final Juan Antonio Date Ultra Sound Latest Days Gestation 0 05/15/20 25 0 Pre-papito Flowsheet Flowsheet Date 10/28/2024 Coronel Score Blood Edema Fundus Height Fundus Units Glucose Ketones Leukocytes Nitrite Labor Signs Protein Cervic Dilation Cervic Effacement Cervic Station neg none none trace Type Weight in lbs Pre/Post Dialysis Refused 141.841202387111 BP Diastolic BP Location Tested BP Systolic BP Type 77 116 Fetus Heart Rate Present Fetus Movement A No Comments reviewed history of vaginal deliveries, unmedicated x 3, will start bASA tomorrow, reviewed education and precautions, US wnl, start routine care Menstrual History Last Menstrual Date Menses Monthly On Bcp Conception Prior Menses Frequency Hcg Plus Date Menarche Onset Age 1208/08/2025 Delivery Information Delivery Date Delivery Type Labor Anesthesia Weeks Gestation Incision Type Labor Labor Length Hrs Delivered By Post Complications Tubal Sterilization Discharge Date Comments Discharge Information Feeding Method Contraceptive Method Maternal HG B and HCT Levels Ob Episode Information Episode Created Date Number of Fetuses Patient Bloodtype Patient rh Status Prepregnancy Weight lbs Domestic Partner Domestic Partner Phone Father Name Yield Loss Inspector Status 05/22/20 23 1 O Positive 142 demarco harding CLOSED Fetus Data First Name Last Name Admitted to NICU Weight (g) Sex Living Outcome Pediatric Complications Fetus ID Race Codes Race Delivery Type 2769.76 [id number] F true Prematur e [id number] Vaginal Delivery Problems Problem Notes ulysses Problem Name Start Date End Date Resolution Snomed Code Not e Nausea [id number] zofran Group B Streptococcus carrier [id number] + GBS amp in labor History of cholestasis in [id number] 2021 Past history of pre-eclampsia [id number] 2019- start ed ASA 81 mg 12 weeks, PCR 20 weeks as baseline Anemia 09/06/2023 MEDICATION [id number] 1 slowfe bid Cholestasis [id number] ursodiol BID, testing and 36-37 wk delivery Juan Antonio Calculation Initial Juan Antonio Date Initial Exam Date Initial Exam Provider Initial Ultrasound Date Last Menstrual Period Date Ultra Sound Weeks Gestation 11/25/2023 04/30/2023 04/30/2023 02/18/2023 10 Eighteen To Twenty Week Juan Antonio Update Ultra Sound Date Fundal Height At Umbil Quickening Date Ultra Sound Latest Weeks Gestation Final Juan Antonio Confirmed By Final Juan Antonio Confirmed Date Final Juan Antonio Date Ultra Sound Latest Days Gestation 05/22/20 23 13 [email or web address] 07/10/202311/24/ 024 5 Pre-papito Flowsheet Flowsheet Date 05/22/2023 Coronel Score Blood Edema Fundus Height Fundus Units Glucose Ketones Leukocytes Nitrite Labor Signs Protein Cervic Dilation Cervic Effacement Cervic Station neg none none trace Type Weight in lbs Pre/Post Dialysis Refused Weight 142.144644904593 BP Diastolic BP Location Tested BP Systolic BP Type 74 119 Fetus Heart Rate Present Fetus Movement A No Comments patient states that having s ome nausea and vomiting. education and precautions, labs with NIPT today, baseline PCR at 20 weeks. NT visualized, subchorionic hemorrhage Flowsheet Date 06/19/2023 Coronel Score Blood Edema Fundus Height Fundus Units Glucose Ketones Leukocytes Nitrite Labor Signs Protein Cervic Dilation Cervic Effacement Cervic Station neg none none trace Type Weight in lbs Pre/Post Dialysis Refused Weight 146.515640119219 BP Diastolic BP Location Tested BP Systolic BP Type 78 120 Fetus Heart Rate Present A 150 Present Fetus Movement A Yes Comments patient is having some heada ches, pain, pressure and nausea. fioricet ok, still using scopalomine patch f/u 2 weeks anatomy Flowsheet Date 07/10/2023 Coronel Score Blood Edema Fundus Height Fundus Units Glucose Ketones Leukocytes Nitrite Labor Signs Protein Cervic Dilation Cervic Effacement Cervic Station Type Weight in lbs Pre/Post Dialysis Refused BP Diastolic BP Location Tested BP Systolic BP Type Fetus Heart Rate Present Fetus Movement Comments Flowsheet Date 07/10/2023 Coronel Score Blood Edema Fundus Height Fundus Units Glucose Ketones Leukocytes Nitrite Labor Signs Protein Cervic Dilation Cervic Effacement Cervic Station neg trace none trace Type Weight in lbs Pre/Post Dialysis Refused Weight 153.233000987625 BP Diastolic BP Location Tested BP Systolic BP Type 74 115 Fetus Heart Rate Present Fetus Movement A Yes Comments patient is having some pain, swelling, and nausea. efw 65% anatomy complete! doing well! education and precautions Flowsheet Date 08/07/2023 Coronel Score Blood Edema Fundus Height Fundus Units Glucose Ketones Leukocytes Nitrite Labor Signs Protein Cervic Dilation Cervic Effacement Cervic Station neg trace 21 trace Type Weight in lbs Pre/Post Dialysis Refused Weight 153.420828057645 BP Diastolic BP Location Tested BP Systolic BP Type 64 114 Fetus Heart Rate Present A 145 Fetus Movement A Yes Comments patient is having some pain, nausea, vomiting and swelling. pcr and labs today, getting over food poisoning was at hospital for fluids, having a hard time still eating, brat diet, precautions reviewed f/u 4 weeks with growth and gct Flowsheet Date 09/06/2023 Coronel Score Blood Edema Fundus Height Fundus Units Glucose Ketones Leukocytes Nitrite Labor Signs Protein Cervic Dilation Cervic Effacement Cervic Station Type Weight in lbs Pre/Post Dialysis Refused BP Diastolic BP Location Tested BP Systolic BP Type Fetus Heart Rate Present Fetus Movement Comments Flowsheet Date 09/06/2023 Coronel Score Blood Edema Fundus Height Fundus Units Glucose Ketones Leukocytes Nitrite Labor Signs Protein Cervic Dilation Cervic Effacement Cervic Station trace none trace Type Weight in lbs Pre/Post Dialysis Refused Weight 154.880381071179 BP Diastolic BP Location Tested BP Systolic BP Type 72 R arm 131 sitting Fetus Heart Rate Present Fetus Movement A Yes Comments Patient is having pelvic rosana n, having itching, and swelling. will start ursadiol and plan labs efw 51%,, discussed precautions and education GCT complete and wnl Flowsheet Date 09/20/2023 Coronel Score Blood Edema Fundus Height Fundus Units Glucose Ketones Leukocytes Nitrite Labor Signs Protein Cervic Dilation Cervic Effacement Cervic Station neg trace none trace Type Weight in lbs Pre/Post Dialysis Refused Weight 157.142858635328 BP Diastolic BP Location Tested BP Systolic BP Type 68 117 Fetus Heart Rate Present A 32 Fetus Movement A Yes Comments patient is having some BH co ntractions, swelling, pressure and pain. reviewed precautions and education plan 36 week growth us Flowsheet Date 10/04/2023 Coronel Score Blood Edema Fundus Height Fundus Units Glucose Ketones Leukocytes Nitrite Labor Signs Protein Cervic Dilation Cervic Effacement Cervic Station neg none 28 none trace Type Weight in lbs Pre/Post Dialysis Refused Weight 159.223337063507 BP Diastolic BP Location Tested BP Systolic BP Type 83 132 Fetus Heart Rate Present A 154 Present Fetus Movement A Yes Comments patient is itching all over body, pain, contractions, cramping, dizziness and nausea. check labs, eat every couple hours, increase protein, visits weekly precautions and education. call for preadmission Flowsheet Date 10/10/2023 Coronel Score Blood Edema Fundus Height Fundus Units Glucose Ketones Leukocytes Nitrite Labor Signs Protein Cervic Dilation Cervic Effacement Cervic Station Type Weight in lbs Pre/Post Dialysis Refused BP Diastolic BP Location Tested BP Systolic BP Type Fetus Heart Rate Present Fetus Movement Comments Flowsheet Date 10/11/2023 Coronel Score Blood Edema Fundus Height Fundus Units Glucose Ketones Leukocytes Nitrite Labor Signs Protein Cervic Dilation Cervic Effacement Cervic Station Type Weight in lbs Pre/Post Dialysis Refused Weight 159.356186287983 BP Diastolic BP Location Tested BP Systolic BP Type 73 110 Fetus Heart Rate Present A 135 Present Fetus Movement Comments doing well, +FM, precautions reviewed, f/u one week, call for preadmit Flowsheet Date 10/16/2023 Coronel Score Blood Edema Fundus Height Fundus Units Glucose Ketones Leukocytes Nitrite Labor Signs Protein Cervic Dilation Cervic Effacement Cervic Station neg trace 32 none trace Type Weight in lbs Pre/Post Dialysis Refused Weight 160.225950478840 BP Diastolic BP Location Tested BP Systolic BP Type 71 109 Fetus Heart Rate Present A 144 Present Fetus Movement A Yes Comments patient is having pain, cont ractions, pressure and swelling. itching all over, +FM going to [place] this weekend, travel precautions reviewed, check bile acids f/u one week Flowsheet Date 10/24/2023 Coronel Score Blood Edema Fundus Height Fundus Units Glucose Ketones Leukocytes Nitrite Labor Signs Protein Cervic Dilation Cervic Effacement Cervic Station Type Weight in lbs Pre/Post Dialysis Refused BP Diastolic BP Location Tested BP Systolic BP Type Fetus Heart Rate Present Fetus Movement Comments Flowsheet Date 10/24/2023 Coronel Score Blood Edema Fundus Height Fundus Units Glucose Ketones Leukocytes Nitrite Labor Signs Protein Cervic Dilation Cervic Effacement Cervic Station Type Weight in lbs Pre/Post Dialysis Refused Weight 160.927688230859 BP Diastolic BP Location Tested BP Systolic BP Type 71 110 Fetus Heart Rate Present Fetus Movement Comments Flowsheet Date 10/25/2023 Coronel Score Blood Edema Fundus Height Fundus Units Glucose Ketones Leukocytes Nitrite Labor Signs Protein Cervic Dilation Cervic Effacement Cervic Station neg trace none trace Type Weight in lbs Pre/Post Dialysis Refused Weight 160.167975697806 BP Diastolic BP Location Tested BP Systolic BP Type 72 118 Fetus Heart Rate Present Fetus Movement A Yes Comments patient is having itching an d swelling. doing well, reviewed cholestasis, IOL scheduled, precautions and education, f/u one week Flowsheet Date 11/01/2023 Coronel Score Blood Edema Fundus Height Fundus Units Glucose Ketones Leukocytes Nitrite Labor Signs Protein Cervic Dilation Cervic Effacement Cervic Station Type Weight in lbs Pre/Post Dialysis Refused BP Diastolic BP Location Tested BP Systolic BP Type Fetus Heart Rate Present Fetus Movement Comments Flowsheet Date 11/01/2023 Coronel Score Blood Edema Fundus Height Fundus Units Glucose Ketones Leukocytes Nitrite Labor Signs Protein Cervic Dilation Cervic Effacement Cervic Station Type Weight in lbs Pre/Post Dialysis Refused BP Diastolic BP Location Tested BP Systolic BP Type Fetus Heart Rate Present Fetus Movement Comments Flowsheet Date 11/01/2023 Coronel Score Blood Edema Fundus Height Fundus Units Glucose Ketones Leukocytes Nitrite Labor Signs Protein Cervic Dilation Cervic Effacement Cervic Station neg trace none trace Type Weight in lbs Pre/Post Dialysis Refused Weight 158.886277611985 BP Diastolic BP Location Tested BP Systolic BP Type 78 110 Fetus Heart Rate Present Fetus Movement A Yes Comments patient states that having s ome pain, contractions, swelling and nausea. nst-r doing well, will increase ursadiol due to pruritis, iol saturday precautions and education Flowsheet Date 10/28/2024 Coronel Score Blood Edema Fundus Height Fundus Units Glucose Ketones Leukocytes Nitrite Labor Signs Protein Cervic Dilation Cervic Effacement Cervic Station Type Weight in lbs Pre/Post Dialysis Refused Weight 141.957221043546 BP Diastolic BP Location Tested BP Systolic BP Type 77 116 Fetus Heart Rate Present Fetus Movement Comments Menstrual History Last Menstrual Date Menses Monthly On Bcp Conception Prior Menses Frequency Hcg Plus Date Menarche Onset Age 0702/18/2023 Genetic Screening And Infection History Question Response Note Mental Retardation/Autism false Patient's Age Will Be 35 Yea rs Or Older At Estimated Date of Delivery false Thalassemia (Norwegian, South Korean, Mediterranean, Or Background): MCV < 80 false Neural Tube Defect (Meningom yelocele, Spina Bifida, Or Anencephaly) false Congenital Heart Defect false Down Syndrome false Alex-Sachs (eg, Scientology, Cajun, New Zealander-Jordanian) f alse Zane Disease false Sickle Cell Disease Or Trait () false Hemophilia Or Other Blood Disorders false Muscular Dystrophy false Cystic Fibrosis false [place]'s [place] false Intellectual Disability/Autism false If Yes, Was Person Tested For Fragile X? false Other Inherited Genetic Or Chromosomal Disorder false Maternal Metabolic Disorder (eg, Type 1 Diabetes , PKU) false Patient Or Baby's Father Had A Child With Defects Not Listed Above false Recurrent Loss, Or A Stillbirth false Medications (including Suppl ements, Vitamins, Herbs, OTC Drugs), Illicit/Recreational Drugs, Alcohol true pnv, zofra n asa If Yes, Agent(s) And Strength/Dosage false Any Other Genetic History false Live With Someone With TB Or Exposed To TB false Patient Or Partner Has History Of Genital Herpes false Rash Or Viral Illness Since Last Menstrual Perio d false History Of STD, Gonorrhea, Chlamydia, HPV, Syphi lis false Other Infection History false History of HIV false History of Hepatitis false Prior GBS-infected child false Hemoglobinopathy Or Carrier false Other Structural Defect false Recent Travel History Outside of Country false Delivery Information Delivery Date Delivery Type Labor Anesthesia Weeks Gestation Incision Type Labor Labor Length Hrs Delivered By Post Complications Tubal Sterilization Discharge Date Comments 4 Induce d None 36.6 false Zita Licona CNM cholestas is, anemia, nausea, GBS, hx pre-e Discharge Information Feeding Method Contraceptive Method Maternal HG B and HCT Levels
--- OUTSIDE RECORDS SUMMARY | 2024-11-16 18:37 | XMS_ITS | Data Portability ---
Author Organization [facility] [employer], Main Office Address [address] [place] [address] Assessment No assessment recorded. Plan of Treatment Reminders Order Date Submit Date Provider Last Modified By Organization Details Last Modified Time Details Appointments None recorded. Lab rapid flu (A+B) 2024 025 [facility], [address] [place] [address], [address], 5 16:31:37 TSH, serum or plasma [email or web address] (Lab), [address] [place], [address], 4 08:47:19 vitamin D, 25-hydroxy, total, serum 2023 024 [facility] (Lab), [address] [place], [address], 4 21:22:51 CBC w/ auto diff 2023 024 [facility] (Lab), [address] [place], [address], 4 21:22:51 TSH, serum or plasma 2023 024 [facility] (Lab), [address] [place], [address], 4 21:22:51 glycohemogl obin, total, blood 2023 024 [facility] (Lab), [address] [facility], [place], [address], 4 08:06:[address] referral - Please call patient to schedule an appointment . Thank you. 2023 024 [email or web address] [facility], [address], [place], [address], 4 08:52:32 Procedures None recorded. Surgeries None recorded. Imaging None recorded. Medication Orders fluticasone propionate 50 mcg/actuati on nasal spray,suspe nsion 2024 025 [facility] [address] [place], [address], 5 12:16:47 cefdinir 300 mg capsule 2024 025 [facility] [address] [place], [address], 5 12:16:47 benzonatate 100 mg capsule 2024 025 [facility] [address] [place], [address], 5 12:16:46 amoxicillin 875 mg tablet 2024 025 [address] [place], [address], 5 12:03:39 cetirizine 10 mg tablet 2024 025 [address] [place], [address], 5 12:03:44 Medrol (Gaurav) 4 mg tablets in a dose pack 2024 025 [facility], [address] [place], [address], 5 12:03:50 fluoxetine 10 mg tablet 2023 024 [facility]2510, [address] [place], [address], 4 12:05:11 fluoxetine 10 mg tablet 2023 024 [facility], [address] [facility], [place], [place], [id number], 4 14:22:01 amoxicillin 875 mg-potassiu m clavulanate 125 mg tablet [address] [facility]896, [address] [facility], [place], [place], [id number], 4 14:06:18 bupropion HCl XL 150 mg 24 hr tablet, extended release [address] [facility]50667, [address] [facility], [place], [place], [id number], 4 14:06:25 Patient TargetsNo targets recorded. Patient InstructionsNo instructions recorded. Reason for Referral Ct Technician Referral for D ry skin dermatitis Please call patient to schedule an appointment. Thank you. Referring Physician: Kiesha Casillas, Family Medicine, Encounter Date: 02/20/2024 Results Created Date Observation Date Name Description Value Unit Range Abnormal Flag Note LastModifiedBy Organization Detail LastModifiedTime 09/29/1909/29/2024 rapid flu (A+B) Flu A negati ve Not Available [address], [address], 09/29/2024 15:24:08 09/29/19 25 09/29/2024 rapid flu (A+B) Flu B negati ve Not Available [facility], [place], [address], 09/29/2024 15:24:08 Result Notes None recorded. Problems Name Problem SNOMED Code Status Onset Date Resolution Date Notes Provider Name and Address Organization Details Recorded Time Insomnia 095005905 Active Not Available [facility] 3 07:30:23 Generaliz ed enlarged lymph nodes 747662842 Active Not Available [facility] 3 07:30:23 Hypoglyce juhi 174335405 Completed 02/20/2024 GEOVANNI Gu [address], [place], [address] , [employer] 4 13:44:03 Reactive hypoglyce juhi 466695 Active Not Available [facility] 3 07:30:23 Depressiv e disorder 96687846 Active Not Available [facility] 3 07:30:23 Sinusitis 40188107 Completed 02/20/2024 GEOVANNI Gu [address], [address], [place], [address] , [employer] 4 13:43:49 Acneiform eruption 816227657 Active Not Available [facility] 3 07:30:24 Dizziness 037117702 Active Not Available [facility] 3 07:30:24 Pain radiating to left arm 783594916 Completed 02/20/2024 GEOVANNI Gu [address], [address], [place], [address] , [employer] 4 13:44:09 Eczema 74285692 Active Not Available [facility] 3 07:30:24 Paronychi a of finger 465374848 Active Not Available [facility] 3 07:30:24 Anxiety 88537251 Active Not Available [facility] 3 07:30:24 Hand pain 46951787 Completed 02/20/[address], [place], [address] , [facility] 4 13:43:57 Upper respirato ry infection 65710278 Completed 02/20/2024 GEOVANNI Gu [address], [address], [place], [address] , [facility] 4 13:43:54 Cervical lymphaden opathy 341518674 Active 2022 Kathleen Gtz MD [address], [address], [place], [address] , [facility] 3 17:01:20 Acute bacterial sinusitis 10226195 Active 2023 GEOVANNI Gu [address], [address], [place], [address] , [facility] 4 14:25:38 Dry skin dermatiti s 044993004 Active 2023 GEOVANNI Gu [address], [address], [place], [address] , [facility] 4 14:29:50 Malaise and fatigue 853012801 Active 2023 GEOVANNI Gu [address], [address], [place], [address] , [facility] 4 14:18:45 Hyperthyr oidism 46504795 Active 2023 GEOVANNI Gu [address], [place], [address] , [facility] 4 11:57:30 Cough 42766206 Active [address], [place], [address] , [facility] 5 15:24:03 Dysfuncti on of bilateral eustachia n tubes 32496564511 11088 Active 2024 GEOVANNI Gu [facility], [address], [place], [address] , [facility] [employer] [facility] 5 15:26:33 Serous otitis media 88090047 Active 2024 Kiesha Casillas, MERCHANDISE DIRECTOR [address] [facility], [place], [address] , [facility] [employer] [facility] [employer] [facility] 5 12:13:35 Problem Notes None recorded. Medical Equipment None Reported. Allergies No known drug allergies Medications Name Sig Start Date Stop Date Status Note LastModified by Organization Details LastModified Time amoxicillin 500 mg capsule TAKE 1 TABLET BY MOUTH 3 TIMES A DAY UNTIL GONE 09/29 completed Not Available Not Available Not Available buspirone 5 mg tablet Take 1 tablet twice a day by oral route. 02/19 completed Not Available Not Available Not Available Xanax 0.5 mg tablet Take 1 tablet 3 times a day by oral route. active Not Available Not Available No t Available cetirizine 10 mg tablet TAKE 1 TABLET BY MOUTH EVERY DAY NEEDED 10/08 completed Not Available Not Available Not Available benzonatate 200 mg capsule Take 1 capsule 3 times a day by oral route as needed. active Not Available Not Available No t Available methylpheni date 10 mg tablet TK 1 T PO BID 06/20 completed Not Available Not Available Not Available ondansetron HCl 4 mg tablet 07/26 completed Not Available Not Available Not Available Tubersol 5 tub. unit/0.1 mL intradermal injection solution active [facility]# [phone] Not Available Not Available Not Available fluoxetine 10 mg tablet TAKE 1 TABLET BY MOUTH EVERY DAY DIRECTED active Not Available Not Available No t Available sertraline 100 mg tablet TK 1 T PO QD active Not Available Not Available No t Available Zithromax Z-Gaurav 250 mg tablet Take 2 TABLET EVERY DAY by oral route for 1 day. Than 1 tablet for 4 days 02/19 completed Not Available Not Available Not Available acetaminoph en 300 mg-codeine 30 mg tablet 07/26 completed Not Available Not Available Not Available tramadol 50 mg tablet Take 1-2 TABLET EVERY 6 HOURS by oral route. active Not Available Not Available No t Available triamcinolo ne acetonide 0.1 % topical cream APPLY TWICE A DAY TO AFFECTED AREA 05/07 completed Not Available Not Available Not Available butalbital- acetaminoph en-caffeine 50 mg-325 mg-40 mg tablet 07/26 completed Not Available Not Available Not Available amoxicillin 875 mg tablet TAKE 1 TABLET BY MOUTH EVERY 12 HOURS DIRECTED FOR 7 DAYS 10/08 completed Not Available Not Available Not Available metoclopram dia 5 mg tablet 09/29 completed Not Available Not Available Not Available Prilosec 10 mg capsule,del ayed release Take 2 capsules every day by oral route. 2012 active Not Available Not Available Not Avai lable benzonatate 100 mg capsule TAKE 1 CAPSULE BY MOUTH THREE TIMES A DAY active Not Available Not Available No t Available nystatin 100,000 unit/gram topical cream APPLY TWICE A DAY TO AFFECTED AREA 05/07 completed Not Available Not Available Not Available ranitidine 150 mg tablet TK 1 T PO BID active Not Available Not Available No t Available ursodiol 300 mg capsule TAKE 1 CAPSULE BY MOUTH TWICE DAILY DIRECTED 02/19 completed Not Available Not Available Not Available nystatin-tr iamcinolone 100,000 unit/g-0.1 % topical cream APPLY TWICE DAILY DIRECTED active Not Available Not Available No t Available ibuprofen 600 mg tablet TAKE 1 TABLET BY MOUTH EVERY 6 HOURS NEEDED FOR CRAMPING 07/26 completed Not Available Not Available Not Available levofloxaci n 500 mg tablet TAKE 1 TABLET BY MOUTH QD FOR 7 DAYS 05/07 completed Not Available Not Available Not Available scopolamine 1 mg over 3 days transdermal patch APPLY 1 PATCH EVERY 3 DAYS 02/19 completed Not Available Not Available Not Available methylpredn isolone 4 mg tablets in a dose pack TAKE 6 TABLETS ON DAY 1 DIRECTED ON PACKAGE AND DECREASE BY 1 TAB EACH DAY FOR A TOTAL OF 6 DAYS 10/08 completed Not Available Not Available Not Available dexamethaso ne 1.5 mg tablet 07/26 completed Not Available Not Available Not Available ondansetron 4 mg disintegrat ing tablet DISSOLVE ONE TABLET BY MOUTH EVERY 6 HOURS NEEDED FOR NAUSEA active Not Available Not Available No t Available cefdinir 300 mg capsule TAKE 1 CAPSULE BY MOUTH EVERY 12 HOURS DIRECTED FOR 7 DAYS active Not Available Not Available No t Available fluticasone propionate 50 mcg/actuati on nasal spray,suspe nsion SPRAY 2 SPRAYS INTO EACH NOSTRIL EVERY DAY 2024 active Not Available Not Available Not Avai lable sertraline 50 mg tablet TK ONE T PO ONCE D active Not Available Not Available No t Available medroxyprog esterone 150 mg/mL intramuscul ar suspension Inject IM Q 12 weeks 07/26 completed Not Available Not Available Not Available metoclopram dia 10 mg tablet TAKE 1 TABLET BY MOUTH THREE TIMES DAILY FOR 14 DAYS 05/26 completed Not Available Not Available Not Available amoxicillin 875 mg-potassiu m clavulanate 125 mg tablet TAKE 1 TABLET BY MOUTH EVERY 12 HOURS FOR 7 DAYS DIRECTED 03/11 completed Not Available Not Available Not Available Ventolin HFA 90 mcg/actuati on aerosol inhaler INHALE 2 PUFFS EVERY 4 HOURS NEEDED FOR SHORTNESS OF BREATH 05/07 completed Not Available Not Available Not Available medroxyprog esterone 150 mg/mL intramuscul ar syringe 07/26 completed Not Available Not Available Not Available Lexapro 10 mg tablet Take 1 tablet every day by oral route. active Not Available Not Available No t Available bupropion HCl XL 150 mg 24 hr tablet, extended release TAKE 1 TABLET BY MOUTH EVERY DAY DIRECTED 03/11 completed Not Available Not Available Not Available TriNessa (28) 0.18 mg(7)/0.215 mg(7)/0.25 mg(7)-35 mcg tablet Take 1 tablet every day by oral route. active Not Available Not Available No t Available ursodiol 500 mg tablet TAKE 1 TABLET BY MOUTH EVERY 8 HOURS 02/19 completed Not Available Not Available Not Available 07/26 completed Not Available Not Available Not Available Truetest Test Strips Take 1 strip twice a day by miscell. route. active Not Available Not Available No t Available Tru Fe 1.5/30 (28) 1.5 mg-30 mcg (21)/75 mg (7) tablet 02/19 completed Not Available Not Available Not Available potassium chloride ER 20 mEq tablet,exte nded release TAKE 1 TABLET BY MOUTH ONCE 02/19 completed Not Available Not Available Not Available Vitals Date Recorded Body weight Body mass index (BMI) Body height Body temperature Heart rate Respiratory rate Oxygen saturation Oxygen saturation in Arterial blood by Pulse oximetry Pain severity - 0-10 verbal numeric rating [Score] - Reported Systolic blood pressure Diastolic blood pressure Provider Name and Address Organization Details Last Updated DateTime 4 67974.9 6 g 24.1 kg/m2 168.28 cm 99 [degF] 71 /min 20 /min 99 % 99 % 6 124 mm[Hg] 80 mm[Hg] CARMELA Espinoza [facility] [employer] [facility] 4 14:15:27 Date Recorded Body height Body mass index (BMI) Body weight Body temperature Heart rate Oxygen saturation Oxygen saturation in Arterial blood by Pulse oximetry Pain severity - 0-10 verbal numeric rating [Score] - Reported Systolic blood pressure Diastolic blood pressure Provider Name and Address Organization Details Last Updated DateTime 4 168.28 cm 22.7 kg/m2 37288.6 7 g 98 [degF] 75 /min 98 % 98 % 0 108 mm[Hg] 72 mm[Hg] CARMELA Espinoza [facility] [employer] [facility] 4 14:08:38 Date Recorded Body height Body mass index (BMI) Body weight Body temperature Heart rate Respiratory rate Oxygen saturation Oxygen saturation in Arterial blood by Pulse oximetry Pain severity - 0-10 verbal numeric rating [Score] - Reported Systolic blood pressure Diastolic blood pressure Provider Name and Address Organization Details Last Updated DateTime 4 168.28 cm 22.3 kg/m2 91787.4 4 g 97.5 [degF] 76 /min 20 /min 98 % 98 % 0 118 mm[Hg] 70 mm[Hg] Juliann Ingram RN [facility] [employer] [facility] 4 11:50:46 Date Recorded Body height Body mass index (BMI) Body weight Body temperature Heart rate Respiratory rate Oxygen saturation Oxygen saturation in Arterial blood by Pulse oximetry Pain severity - 0-10 verbal numeric rating [Score] - Reported Systolic blood pressure Diastolic blood pressure Provider Name and Address Organization Details Last Updated DateTime 5 168.28 cm 23.6 kg/m2 93970.1 8 g 98.2 [degF] 102 /min 24 /min 99 % 99 % 9 120 mm[Hg] 64 mm[Hg] Juliann Ingram RN [place] [facility] [employer] 5 15:08:16 Date Recorded Body height Body mass index (BMI) Body weight Body temperature Heart rate Respiratory rate Oxygen saturation Oxygen saturation in Arterial blood by Pulse oximetry Pain severity - 0-10 verbal numeric rating [Score] - Reported Systolic blood pressure Diastolic blood pressure Provider Name and Address Organization Details Last Updated DateTime 5 168.28 cm 22.2 kg/m2 21523.9 g 98.2 [degF] 75 /min 20 /min 98 % 98 % 0 98 mm[Hg] 64 mm[Hg] Juliann Ingram RN [place] [facility] [employer] 5 12:06:13 Social History Question Answer Notes LastModified by Organization Details LastModified Time Tobacco Smoking Status Former Smoker Juliann Ingram RN [facility], [employer] [facility] [employer] 02/20/2024 14:16:39 Do You Have An Advance Directive? No Information not available 02/20/2024 What Is Your Level Of Alcohol Consumption? None Information not available 02/20/2024 Is Blood Transfusion Acceptable In An Emergency? Yes Information not available 02/20/2024 What Is Your Level Of Caffeine Consumption? Occasional Information not available 02/20/2024 What Is Your Code Status? Full Code Information not available 02/20/2024 In The 14 Days Before Symptom Onset, Have You Had Close Contact With A Laboratory-confi rmed COVID-19 While That Case Was Ill? No Information not available 02/20/2024 In The 14 Days Before Symptom Onset, Have You Had Close Contact With A Person Who Is Under Investigation For COVID-19 While That Person Was Ill? No Information not available 02/20/2024 Are You Currently Employed? No Information not available 02/20/2024 What Type Of Diet Are You Following? REGULAR Information not available 02/20/2024 Have There Been Any Changes To Your Family Or Social Situation? Yes New Born, 3 Children Information not available 02/20/2024 Do You Use Insect Repellent Routinely? Yes Information not available 02/20/2024 Where Do You Live? [place] Information not available 02/20/2024 Do You Have A Medical Power Of Broadcasting Equipment Mechanic? No Information not available 02/20/2024 How Many Children Do You Have? 3 Information not available 02/20/2024 Do You Have Any Pets? No Information not available 02/20/2024 What Is Your Relationship Status? Information not available 02/20/2024 Do You Use Your Seat Belt Or Car Seat Routinely? Yes Information not available 02/20/2024 Do You Have Smoke And Carbon Monoxide Detectors In Your Home? Yes Information not available 02/20/2024 At What Age Did You Start Smoking Tobacco? 20 Information not available 02/20/2024 Are You Passively Exposed To Smoke? No Information not available 02/20/2024 Are There Any Smokers In Your House? No Information not available 02/20/2024 Do You Participate In Social Media? Yes Information not available 02/20/2024 Do You Feel Stressed (tense, Restless, Nervous, Or Anxious, Or Unable To Sleep At Night)? [id number] Information not available 2024 Do You Use Sunscreen Routinely? Yes Information not available 02/20/2024 Have You Recently Traveled Abroad? No Information not available 02/20/2024 Sex: Unknown Functional Status Question Answer Note LastModified by Organization D etails LastModified Time What is your exercise level? None Information not available 02/20/2024 Mental Status None recorded. Family History Relationship Description Onset Age of this Age Resolved Age Notes LastModified by Organization Details LastModified Time Father No current problems or disability [id number] Not available 10/10/2022 07:26:28 Mother No current problems or disability [id number] Not available 10/10/2022 07:26:28 Medical History Condition Response ANXIETY DISORDER Y DEPRESSION (INCLUDING POST ) Y APPENDICITIS N Gynecological History Statement/Question Response Abnormal Pap N Flow Moderate Date of LMP 05/24/2024 Duration of Flow (days) 4 Current Control Method Age at Menarche 12 Most Recent Mammogram Date of Last Colonoscopy Frequency of Cycle (Q days) 28 Most Recent Bone Density Date of Last Pap Smear Obstetrics History GPAL:G 0 P 0 0 0 0 Immunizations Vaccine Type Date Status Note Provider Nam e and Address Organization Details Recorded Time DTaP 1 completed Not Available On license of [facility] 10/10/2022 07:36:32 meningococcal C conjugate 1 completed Not Available On license of [facility] 10/10/2022 07:36:32 Tdap 2 completed Not Available On license of [facility] 10/10/2022 07:36:32 Tdap 9 completed Not Available On license of [facility] 10/10/2022 07:36:32 Tdap 6 completed Not Available On license of [facility] 10/10/2022 07:36:32 Past Encounters Encounter ID Performer Location Encounter Start Date Encounter Closed Date Diagnosis/Indication Diagnosis SNOMED-CT Code Diagnosis ICD10 Code [facility] [id number] [facility] [place] [address] 11/02/2021 00:00:00 11/02/2021 19:24:31 [id number] [place] [address] [place] [address] 07/26/2022 00:00:00 07/26/2022 19:09:57 [id number] Kiesha Casillas [address] [address] 02/20/2024 14:03:04 02/20/2024 14:44:56 Acute bacterial sinusitis 88393450 J01.90 Anxiety 92508465 F41.9 Dry skin dermatitis 2600 22102 L85.3 [id number] Kiesha Casillas [address] [address] 03/11/2024 14:00:13 03/11/2024 14:37:17 Anxiety 41077793 F41.9 Stop wellbutrin Malaise and fatigue 2713 63786 R53.81 [id number] GEOVANNI Gu [facility] [address] [address] 2024 11:32:07 2024 13:01:32 Anxiety 13845891 F41.9 Stop wellbutrin Hyperthyroidism 89138365 E05.90 [id number] Kiesha Casillas [facility] [address] [address] 09/29/2024 14:50:55 09/29/2024 15:30:31 Cough 45547662 R05.9 notes tightness in her chest Acute bact erial sinusitis 62420047 J01.90 left sided, improved then worsened Dysfunctio n of bilateral eustachian tubes 9888151574 234745 H69.93 [id number] Kiesha ZendejasGEOVANNI sarah [facility] [address] [address] 10/08/2024 11:58:32 10/08/2024 12:35:11 Serous otitis media 25697742 H65.02 Is taking Zyrtec. Advised to add [employer] [facility] Concerns Section Related Observation LastModified by Organization Detai ls LastModified Time None Recorded Concern Status LastModified by Organization Details LastModified Time None Recorded Advance Directives Directive N: Payers Encounter Date Sequence Insurance Name Policy Number Policy Dawson Covered Member ID Dawson Member ID Guarantor Name 02/20/2024 1 [place] [id number] Gonsalo Harding [id number] Anai Harding 03/11/2024 1 [place] [id number] Gonsalo Harding [id number] Anai Harding 2024 1 [place] [id number] Gonsalo Harding [id number] Anai Harding 09/29/2024 1 [place] [id number] Gonsalo Harding [id number] Anai Harding 09/29/2024 2 [facility] (MEDICAID REPLACEMENT - HMO) Anai Harding [id number] Anai Harding 10/08/2024 1 [facility] ([place] [id number] Gonsalo Harding [id number] Anai Harding 10/08/2024 2 [facility] (MEDICAID REPLACEMENT - HMO) Anai Harding [id number] Anai Harding Notes Date Note Type Note Provider Name and Address Organization Details Recorded Time 02/20/2024 text/html Anai Harding is a 28 year old female patient here today to establish care. She was previously under the care of Dr. Gtz. She has been under the care of OB.She is overall healthy.She is a mother. She has enlarged cervical lymph nodes, these come and go. These are tender. She has concerns today with a sinus infection for 3 weeks, she has sinus pressures and headaches. She also notes swelling in her face. She has taken tylenol sinus, Afrin Flu shot: declinesCOVID vaccines: declinesTdap: 10/2021WWE: UTD 2022 [facility]NI Gu [address] [facility] [address], [place], [address], [employer] 02/20/2024 14:39:46 03/11/2024 text/html Anai Harding is a 28 year old female patient here today for excessive fatigue. She has a 4 month old baby. She is sleeping poor but states this is beyond normal fatigue. She also notes she cannot fall asleep at night. She has noticed decreased appetite since starting wellbutrin. She does still have anxiety and would like to try an alternative medication. GEOVANNI Gu [address] [facility] [address] [facility], [facility] [address], [place], [address], [employer] 03/11/2024 14:31:46 2024 text/html Anai Harding is a 29 year old female patient here today to FU on mood meds She started Prozac 10 mg 8 weeks ago, she has been out of this for two weeks and states she has noticed a difference. She cannot sleep without it due to racing thoughts. She is more fatigued during the day. Hyperthyroidism noted in February. Is not taking biotin. Will recheck TSH. GEOVANNI Gu [address], [place], [address], [employer] 2024 12:48:58 09/29/2024 text/html Anai Harding is a 29 year old female patient here today for a sick visit She notes cough, fatigue, sore throat, body aches, fever, ear pain, sinus pressure.This started approx 1 week ago, began to get better Saturday/Saturday then worsened Saturday.Now has mostly sinus and head pressure, worse on the right side. She notes she is approx 2 months , will see OB next week GEOVANNI Gu [address], [place], [address], [employer] 09/29/2024 15:40:28 10/08/2024 text/html Anai Harding is a 29 year old female Lt ear pain, will wake her from her sleep. Notes some relief when she take sudafed.Recently completed amoxicillin, did not take steroid due to GEOVANNI [address], [place], [place], [id number], [employer] 10/08/2024 12:28:51 OBGyn Episode No OBEpisode recorded.
[2024-11-16 18:46] VITALS: BP 114/61; PULSE 110; RESP 20; TEMP 37.4; O2SAT 100
--- NOTE | 2024-11-16 18:48 | ECG_ITS ---
Test Date: 2024-11-16 19:48:29 Measurements Intervals [place] Rate: 104 P: 70 CT: 144 QRS: 76 QRSD: 69 T: 53 QT: 322 QTc: 425 Interpretive Statements SINUS TACHYCARDIA BORDERLINE ECG No previous ECG available for comparison Electronically Signed On 11-17-2024 06:34:47 CDT by Cristi Corado D.O.
--- NOTE | 2024-11-16 20:42 | PC.NURSE ---
Pt states she does not want the covid/flu/rsv swab done at this time. Pt states she was tested recently and it was all negative. Pt states she knows its not due to covid or flu.
--- OUTSIDE RECORDS SUMMARY | 2024-11-16 20:54 | XMS_ITS | Clinical Summary ---
Author Organization [facility] Address [address] [place] [address] Care Team Providers Care Operations Analyst Name Role Phone Kathleen Raphael MD Primary Care Provider [phone] Allergies No known active allergies Medications Vit-Fe [...] to complete this topic Insurance Care Teams Operations Analyst Relationship Specialty Start Date End Date Kathleen Raphael MD [address] [place] [address] PCP - General FAMILY PRACTICE 04/05/23
[2024-11-16 20:58] VITALS: BP 126/66; PULSE 99; RESP 18; O2SAT 100
[2024-11-16 21:02] LABS: Basophils Percent Auto 0.1 % (0.2-1.2); Eosinophils Absolute Auto 0.1 K/mm3 (0-0.3); Eosinophils Percent Auto 1.2 % (0-4.4); Hematocrit 32.4 % (37.0-47.0); Hemoglobin 10.4 g/dL (12.0-15.0); Immature Granulocyte Absolute 0.02 K/mm3 (0.00-0.031); Immature Granulocyte Percent A 0.2 % (0-0.5); Lymphocytes Absolute Auto 1.43 K/mm3 (0.9-3.2); Lymphocytes Percent Auto 13.7 % (18.3-44.2); Mean Corpuscular HGB Conc 32.1 g/dl (32-36); Mean Corpuscular Hemoglobin 28.3 pg (26-34); Monocytes Absolute Auto 0.8 K/mm3 (0.1-0.6); Monocytes Percent Auto 7.3 % (2.6-8.5); Neutrophils Absolute Auto 8.1 K/mm3 (1.3-6.7); Neutrophils Percent Auto 77.5 % (45.5-73.1); Platelet Count Result 230 k/mm3 (150-375); Red Blood Count 3.68 M/mm3 (4.2-5.4); Red Cell Distribution Width 13.2 % (11.5-14.5); White Blood Count 10.4 K/mm3 (4.5-10.0)
[2024-11-16 21:07] LABS: INR 1.2; Partial Thromboplastin Time 30.8 Seconds (22.3-36.8)
[2024-11-16 21:15] LABS: Alanine Aminotransferase 10 U/L (6-35); Albumin Level 4.2 g/dL (3.5-5.1); Alkaline Phosphatase 48 U/L (38-126); Anion Gap 9 mmol/L (4-12); Aspartate Amino Transferase 19 U/L (14-36); Bilirubin,Total 0.3 mg/dL (0.2-1.3); Blood Urea Nitrogen 11 mg/dL (7-17); Calcium 9.2 mg/dL (8.4-10.2); Carbon Dioxide 24 mmol/L (22-30); Chloride 101 mmol/L (98-107); Estimated CRCL calculation 113 ml/min; Estimated Glomerular Filt Rate > 60; Glucose 96 mg/dL (65-110); Potassium 3.8 mmol/L (3.4-5.0); Sodium 134 mmol/L (137-145)
[2024-11-16 21:28] LABS: Troponin I < 0.012 ng/mL (0.000-0.034)
[2024-11-16 21:58] LABS: D Dimer < 0.22 ug/mL (<0.48)
--- NOTE | 2024-11-16 22:19 | ED_ITS ---
HPI - SOB/Dyspnea General Chief Complaint: Shortness of Breath/Dyspnea Stated Complaint: Shortness of breath, 14 weeks preg Time Seen by Provider: 11/16/24 20:26 Source: patient Mode of arrival: ambulatory Limitations: no limitations History of Present Illness HPI Narrative: Patient is a 29-year-old female who presents the ED with report of chest pain and shortness of breath. Patient reports she began feeling tightness in her chest and short of breath when she attempted to lay down earlier this evening. She states she could not catch her breath at that time. Prompted here for further evaluation. Patient reports recent productive cough, nasal and chest congestion, rhinorrhea. States her children have been sick with similar symptoms. Denies fevers. Denies lower extremity pain or swelling. Denies history of blood clots. Denies any current symptoms. Patient is currently [address] Snyder. Has been seen for this . Confirmed IUP. Denies abdominal pain or vaginal bleeding. Related Data Allergies Allergy/AdvReac Type Severity Reaction Status Date / Time No Known Allergies Allergy Verified 11/16/24 18:35 Review of Systems 2 Review of Systems: All systems reviewed & are unremarkable except as noted in HPI. All systems reviewed & are unremarkable except as noted in HPI and below PMFSH Past Medical History Medical History GERD (gastroesophageal reflux disease) Family History Family History Grandparent Diabetes mellitus Hypertension Cerebrovascular accident Social History Social History Smoking status: Never smoker Second hand tobacco smoke exposure: No Alcohol intake: current Alcohol use details: TIME TO TIME OCCASIONAL-NONE SINCE BEFORE Substance use: never Do You Feel Safe in your Home?: Yes Lack of Transportation: No Lack of Food: Never True Current Housing: I Have Housing Concerned About Future Housing: No Difficulty Paying Gas/Electric Bills: No Difficulty Paying for Meds: No Currently Unemployed: YES Education: High School Diploma/GED Difficulty w/ Childcare or Family Care: No Living arrangements: with family Additional living arrangements comments: Spiritual care concerns: No Exam 2 Narrative: GENERAL: Well appearing, well-nourished, non-toxic, in no acute distress. HEAD: Normocephalic, atraumatic. RESPIRATORY: Airway patent, respirations nonlabored. Clear to auscultation bilaterally, no rales, rhonchi, wheezing. No significant focal lung sounds. CARDIOVASCULAR: Borderline tachycardic with regular rhythm without murmurs, rubs, or gallops. ABDOMINAL: Soft, uterus gravid, nontender, nondistended. Normoactive BS. MUSCULOSKELETAL: Moves all extremities. No gross deformities. No peripheral edema. No calf tenderness. SKIN: Warm, dry, normal color. NEURO: A&O X3. Speech clear. Cranial nerves II-XII grossly intact. Steady gait. No ataxic movements. PSYCHIATRIC: Appropriate mood and affect. Normal interaction. Course Vital Signs Vital signs: Vital Signs Temperature 99.4 F 11/16/24 18:46 Pulse Rate 110 H 11/16/24 18:46 Respiratory Rate 20 11/16/24 18:46 Blood Pressure 114/61 11/16/24 18:46 Pulse Oximetry 100 11/16/24 18:46 Oxygen Delivery Room Air 11/16/24 18:46 Temperature 99.4 F 11/16/24 18:46 Pulse Rate 72 11/16/24 23:56 Respiratory Rate 18 11/16/24 23:56 Blood Pressure 122/71 11/16/24 23:56 Pulse Oximetry 100 11/16/24 23:56 Oxygen Delivery Room Air 11/16/24 20:58 MDM - SOB/Dyspnea MDM Narrative Medical decision making narrative: Patient presented to ED with chest pain and shortness of breath. Currently 14 weeks gestation. Patient is tachycardic and borderline febrile upon arrival. Oxygen stable on room air. Patient in no acute distress upon my evaluation. She is denying any chest pain or shortness of breath upon my evaluation. EKG with sinus tach, no concerning ST changes. Baseline troponin is undetectable. D-dimer within normal range. No evidence of DVT on exam. Low suspicion for VTE. No significant risk factors aside from . Chest x-ray clear. Remainder basic laboratory studies are otherwise unremarkable. COVID/flu/RSV swab was ordered, however patient declined this. She has had URI symptoms and states her children have been sick with similar symptoms. 3Hr trop was ordered however patient refused. She states she has felt fine since being in the ED and has not had any further symptoms. States she is ready to go home at this time. I discussed reassuring workup thus far, discussed explanation of 3 hour troponin. Again patient declined. I have low suspicion for ACS at this time. Suspect etiology related to URI. Advised patient to have close follow-up with PCP for further evaluation, advised to continue to monitor symptoms. Discussed strict return precautions. Patient voiced understanding. States she is ready to go home. Discharged in stable condition. Medical Records Attestation: I reviewed the patient's medical records. Lab Data Attestation: I reviewed the patient's lab results. 11/16/24 20:54 11/16/24 20:54 Labs: Lab Results 11/16/24 Range/Units 20:54 WBC 10.4 H (4.5-10.0) K/mm3 RBC 3.68 L (4.2-5.4) M/mm3 Hgb 10.4 L (12.0-15.0) g/dL Hct 32.4 L (37.0-47.0) % MCV 88.0 (80-100) fl MCH 28.3 (26-34) pg MCHC 32.1 (32-36) g/dl RDW 13.2 (11.5-14.5) % Plt Count 230 (150-375) k/mm3 MPV 10.0 (7.4-10.4) fl Immature Gran % (Auto) 0.2 (0-0.5) % Neut % (Auto) 77.5 H (45.5-73.1) % Lymph % (Auto) 13.7 L (18.3-44.2) % [place] % (Auto) 7.3 (2.6-8.5) % Eos % (Auto) 1.2 (0-4.4) % Baso % (Auto) 0.1 L (0.2-1.2) % Lymph # (Auto) 1.43 (0.9-3.2) K/mm3 [place] # (Auto) 0.8 H (0.1-0.6) K/mm3 Eos # (Auto) 0.1 (0-0.3) K/mm3 Baso # (Auto) 0.0 (0.0-0.1) K/mm3 Abs Immat Gran (auto) 0.02 (0.00-0.031) K/mm3 Absolute Neuts (auto) 8.1 H (1.3-6.7) K/mm3 Absolute Nucleated RBC 0.000 (0.0-0.012) K/mm3 Nucleated RBC % 0.0 (0.0-0.2) % PT 16.0 H (11.1-14.7) Seconds INR 1.2 APTT 30.8 (22.3-36.8) Seconds D-Dimer < 0.22 (<0.48) ug/mL Sodium 134 L (137-145) mmol/L Potassium 3.8 (3.4-5.0) mmol/L Chloride 101 (98-107) mmol/L Carbon Dioxide 24 (22-30) mmol/L Anion Gap 9 (4-12) mmol/L BUN 11 D (7-17) mg/dL Creatinine 0.61 L (0.7-1.0) mg/dL Estim Creat Clear Calc 113 ml/min Estimated GFR > 60 (59 - ) Glucose 96 (65-110) mg/dL Calcium 9.2 (8.4-10.2) mg/dL Total Bilirubin 0.3 (0.2-1.3) mg/dL AST 19 (14-36) U/L ALT 10 (6-35) U/L Alkaline Phosphatase 48 (38-126) U/L Troponin I < 0.012 (0.000-0.034) ng/mL Total Protein 7.0 (6.3-8.2) g/dL Albumin 4.2 (3.5-5.1) g/dL Imaging Data Attestation: I personally reviewed and interpreted this imaging study as follows: Radiologist's impression: ITS Impressions Chest X-Ray 11/16/24 22:16 IMPRESSION: No focal infiltrate or effusion. ECG Data EKG #1: Attestation: I personally reviewed and interpreted this ECG as follows: ECG completion date: 11/16/24 ECG completion time: 19:48 EKG Interpretation: tachycardia (104), sinus rhythm and no ST changes Discharge Plan Discharge Clinical Impression: Atypical chest pain, Shortness of breath, 14 weeks gestation of Patient Disposition: Home Condition: Stable Instructions: Antibiotic Form, Chest Pain (ED), at 11 to 14 Weeks (ED), Shortness of Breath (ED) Additional Instructions: Your workup here was reassuring. Follow-up with your OBGYN for further evaluation. You may use Tylenol, Robitussin as needed for cough/cold symptoms. Return to the ED if you experience worsening or severe symptoms, severe pain, difficulty breathing, unable to keep down food or drink, abdominal pain, vaginal bleeding, or any other symptoms of concern. Patient Language: Nicaraguan Follow-up/Referrals: Tresa,Katlheen Gant MD [Primary Care Provider] - Dylon Snyder MD [Physician] - (OBGYN) Time of Disposition: 23:51
[2024-11-16 23:56] VITALS: BP 122/71; PULSE 72; RESP 18; O2SAT 100
== END 2024-11-16 23:57 | disposition home or self-care (01) ==
PROVIDERS: Emergency Provider Physician Assistant; PCP Family Medicine
DX: O99.891 Other specified diseases and conditions complicating pregnancy (principal); R07.89 Other chest pain; R06.02 Shortness of breath; O99.612 Diseases of the digestive system complicating pregnancy, second trimester; K21.9 Gastro-esophageal reflux disease without esophagitis; Z3A.14 14 weeks gestation of pregnancy
CPT/HCPCS: 36415; 71045; 80053; 84484; 85025; 85380; 85610; 85730; 93005; 99284

== ENCOUNTER 2025-02-02 13:35 | Observation (INO) | payer BC, MEDICAID, SELFPAY ==
[2025-02-02 14:01] VITALS: BP 113/62; PULSE 80; RESP 20; TEMP 36.8
[2025-02-02 14:05] VITALS: BMI 26.6
--- NOTE | 2025-02-02 14:08 | OBADM ---
This patient, Anai Harding, admitted to the OB room 115 for observation. Patient/family oriented to hospital policies and general routines including ID bracelet, bed and alarms, visiting hours, pain management, procedures, bathroom and other care routines, personal items, smoking policy, room service/diet, and visiting hours. Patient/Family are encouraged to report perceived risks to care and to ask questions if they do not understand what they are told or what they should do.
[2025-02-02 14:15] VITALS: BP 107/61; PULSE 86
[2025-02-02 14:30] VITALS: BP 108/52; PULSE 81
[2025-02-02] MEDS: ACETAMINOPHEN/BUTALBITAL/CAFFEINE 325-50-40 MG TABLET (FIORICET) 1 TAB PO (14:54)
[2025-02-02 15:06] LABS: Add Urine Microscopic? NO; Appearance Urine Clear (Clear); Bilirubin Urine Negative (Negative); Blood Urine Negative (Negative); Color Urine Yellow (Yellow); Glucose Urine UA Negative (Negative); Ketones Urine Negative (Negative); Leukocyte Esterase Ur Negative LEU/UL (Negative); Nitrate Urine Negative (Negative); Protein Urine Negative (Negative)
--- NOTE | 2025-02-28 21:27 | PM.OBTRLD ---
OB - Triage/Final Diagnosis Visit Information Comments/Additional reasons for admission: I have assessed the risk for this patient, Anai Harding, and determined that she would benefit from observation care. Evaluation Laboratory results: Laboratory Tests 02/02/25 14:58 Urine Color Yellow Urine Appearance Clear Urine pH 7.0 Ur Specific Wallace 1.020 Urine Protein Negative Urine Glucose (UA) Negative Urine Ketones Negative Ur Blood (Man) Negative Urine Nitrate Negative Urine Bilirubin Negative Urine Urobilinogen 1.0 Leukocyte Esterase Rfl Negative Final Diagnosis (1) False labor: Code(s): O47.9 - False labor, unspecified Status: Acute
== END 2025-02-02 16:17 | disposition home or self-care (01) ==
PROVIDERS: Admitting Provider Obstetrics & Gynecology; Visit Provider Obstetrics & Gynecology
DX: O47.02 False labor before 37 completed weeks of gestation, second trimester (principal); Z3A.25 25 weeks gestation of pregnancy
CPT/HCPCS: 81003; A9270; G0378; G0379

== ENCOUNTER 2025-02-20 12:57 | Emergency (ER) | payer OTHER, BC, MEDICAID, SELFPAY ==
--- OUTSIDE RECORDS SUMMARY | 2025-02-20 12:59 | XMS_ITS | Clinical Summary ---
Author Organization [facility] Address [address] [place] [address] Care Team Providers Care Engineering Technical Analyst Name Role Phone Kathleen Raphael MD Primary Care Provider [phone] Allergies No known active allergies Medications Vit-Fe [...] 8:47 PM CDT Height 172.7 cm (5' 8) 04/05/2023 8:47 PM CDT Body Mass Index [...] 5 Years) and At-Risk Patients (6 to 49 Years) Aged Out No longer eligible based on patient's age to complete this topic RSV Immunizations Under 20 Months Aged Out No longer eligible based on patient's age to complete this topic Insurance Care Teams Engineering Technical Analyst Relationship Specialty Start Date End Date Kathleen Raphael MD [address] [place] [address] PCP - General FAMILY PRACTICE 04/05/23
--- OUTSIDE RECORDS SUMMARY | 2025-02-20 12:59 | XMS_ITS | Continuity of Care Document ---
Author Organization [place], [facility] Address [address] [place] [address] Care Team Providers Care Guest Advisor Name Role Phone NAVI RUBIN Primary Care Provider Assessment Encounter Date Assessment Date Assessment LastModified by Organization Details LastModified Time 02/19/2025 02/19/2025 Patient is ___weeks . Discussed plan. [email or web address] Not available 02/19/2025 10:19:01 Plan of Treatment Reminders Order Date Submit Date Provider Last Modified By Organization Details Last Modified Time Details Appointments OB ROUTINE 2024 01:45P M Zita Licona CNM Not available Not available Not available U/S OB GROWTH 2024 11:00A M ULTRASOUND Not available Not available Not available OB ROUTINE 2024 11:45A M Zita Licona CNM Not available Not available Not available Lab bile acids, total, serum 2024 025 [facility] (Lab), [address], [place], [address], 02/19/2025 10:36:06 CMP, serum or plasma 2024 025 [facility] (Lab), [address] [place], [address], 02/19/2025 10:36:06 Referral None recorde d. Procedures None recorde d. Surgeries None recorde d. Imaging None recorde d. Medication Orders cyclobe nzaprin e 5 mg tablet [address]/[id number], [address] [place], [address], 02/19/2025 10:49:27 Patient TargetsNo targets recorded. Patient InstructionsNo instructions recorded. Reason for Referral None Reported. Results Created Date Observation Date Name Description Value Unit Range Abnormal Flag Note LastModifiedBy Organization Detail LastModifiedTime 10/29/19 25 10/28/2024 US, obste tric, nucha l trans lucen cy No observ ation record ed. [address], [place], [address], 10/28/2024 18:08:42 10/29/19 25 10/28/2024 US, obste tric, 1st trime ster No observ ation record ed. [address], [place], [address], 10/28/2024 18:08:52 10/29/19 25 10/28/2024 US, obste tric, nucha l trans lucen cy No observ ation record ed. [email or web address] [address], [place], [address], 10/28/2024 21:45:03 12/26/19 25 12/26/2024 US, obste tric, 2nd or 3rd trime ster No observ ation [facility] [address], [place], [address], 12/26/2024 10:36:00 12/26/19 25 12/25/2024 US, obste tric, follo w-up No observ ation record ed. [email or web address] [address], [place], [address], 12/29/2024 21:35:06 Result Notes None recorded. Problems Name Problem SNOMED Code Status Onset Date Resolution Date Notes Provider Name and Address Organization Details Recorded Time Normal pregnanc y in anayeligra ivan [id number] 61997 Completed 201802/22/2021 Encounte r for suprvsn of normal pregnanc y, third trimeste r;Practi ce ID: 0001 Loretta gonzalez, [facility] 12:32:51 Pregnanc y, childbir th and puerperi um finding Completed 201802/22/2021 Encntr for suprvsn of normal first preg, third trimeste r;Practi ce ID: 0001 Loretta gonzalez, [facility] 12:33:16 Pregnanc y, childbir th and puerperi um finding Completed 201802/22/2021 Encntr for suprvsn of normal first pregnanc y, unsp trimeste r;Practi ce ID: 0001 Loretta gonzalez, [facility] 12:33:13 Pre-ecla mpsia 690057637 Completed 201802/22/2021 Mild to moderate pre-ecla mpsia, complica ting childbir th;Pract ice ID: 0001 Loretta gonzalez, [facility] 12:33:06 Lacerati on of female perineum Completed 201802/22/2021 Second degree perineal lacerati on during delivery ;Practic e ID: 0001 Loretta gonzalez, [facility] 12:32:49 Single live from singleto n pregnanc y 630699768 Completed 201802/22/2021 Single live ;Pr actice ID: 0001 Loretta gonzalez, [facility] 12:33:19 Gestatio n period, 38 weeks 60826838 Completed 201802/22/2021 38 weeks gestatio n of pregnanc y;Practi ce ID: 0001 Loretta gonzalez, [facility] 12:32:45 Clinical finding Completed 201802/22/2021 Encounte r for surveill ance of injectab le contrace ptive;Pr actice ID: 0001 Loretta gonzalez, [facility] 12:32:36 Pregnanc y test negative 228806331 Completed 201802/22/2021 Encounte r for pregnanc y test, result negative ;Practic e ID: 0001 Loretta gonzalez, [facility] 12:33:10 Bleeding 155904667 Completed 201902/22/2021 Abnormal uterine and vaginal bleeding , unspecif ied;Prac mary ID: 0001 Loretta gonzalez, [facility] 12:32:[address] Concept Completed 201902/22/2021 Encntr for digital advertising specialist exam (general ) (routine ) w/o abn findings ;Practic e ID: 0001 Loretta gonzalez, [facility] 12:33:21 Antenata l screenin g for malforma tion Completed 201802/22/2021 Encounte r for antenata l screenin g for malforma tions;Re corded Elsewher e: No Locat ion: Juan Jose wallis [facility] S ource: EHR Hvac Commercial Salesperson alfonzo: N Practi ce ID: 0001 Roderick lable Time: 09:00:00 AM Loretta gonzalez [facility] 12:32:34 Finding of regulari ty of menstrua l cycle Completed 201702/22/2021 Irregula r bleeding ;Recorde d Elsewher e: No Locat ion: Juan Jose wallis [facility] S ource: EHR Hvac Commercial Salesperson alfonzo: N Practi ce ID: 0001 Roderick lable Time: 01:00:00 PM Loretta Zambranotz carlos [facility] 12:32:43 Antenata l screenin g Completed 201802/22/2021 Encounte r for antenata l screenin g for nuchal transluc ency;Rec orded Elsewher e: No Locat ion: [facility] S ource: EHR Hvac Commercial Salesperson alfonzo: N Monet ce ID: 0001 Roderick lable Time: 08:45:00 AM Loretta gonzalez, [facility] 12:32:32 Pregnanc y, childbir th and puerperi um finding Completed 201802/22/2021 Encntr for suprvsn of normal first preg, second trimeste r;Record ed Elsewher e: No Locat ion: [facility] S ource: EHR Hvac Commercial Salesperson alfonzo: N Monet ce ID: 0001 Roderick lable Time: 10:00:00 AM Loretta gonzalez, [facility] 12:33:15 Finding of defecati on Completed 201802/22/2021 Constipa tion, unspecif ied;Sedrick rded Elsewher e: No Locat ion: [facility] S ource: EHR Hvac Commercial Salesperson alfonzo: N Pauletteti ce ID: 0001 Roderick lable Time: 02:00:00 PM Loretta gonzalez, [facility] 12:32:39 Pregnanc y detectio n examinat ion Completed 201702/22/2021 Encounte r for pregnanc y test, result positive ;Recorde d Elsewher e: No Locat ion: [facility] S ource: EHR Hvac Commercial Salesperson alfonzo: N Pauletteti ce ID: 0001 Roderick lable Time: 11:00:00 AM Loretta gonzalez, [facility] 12:33:08 Gestatio n period, 8 weeks 01246808 Completed 201702/22/2021 8 weeks gestatio n of pregnanc y;Record ed Elsewher e: No Locat ion: [facility] Jose wallis [facility] S ource: EHR Hvac Commercial Salesperson alfonzo: N Practi ce ID: 0001 Roderick lable Time: 11:00:00 AM Loretta gonzalez, [facility] 1 12:32:47 Finding of fertilit y Completed 201702/22/2021 Female infertil ity, unspecif ied;Sedrick rded Elsewher e: No Locat ion: [facility] Jose wallis [facility] S ource: EHR Hvac Commercial Salesperson alfonzo: N Practi ce ID: 0001 Roderick lable Time: 08:30:00 AM Loretta gonzalez, [facility] 1 12:32:41 Pregnanc y 37719583 Completed 202106/04/2022 Loretta gonzalez [facility] 5 16:54:25 Headache disorder 169277138 Completed fioricet sravanin Magda gonzalez, [facility] 2 13:17:24 Pregnanc y 08598979 Completed 202211/04/2023 Loretta gonzalez, [facility] 5 16:54:25 Past pregnanc y history of cholesta sis in pregnanc y 9718936244 7215591 Completed 2021 Loretta gonzalez [facility] 5 16:29:06 Past pregnanc y history of pre-ecla mpsia 9742776165 35161 Completed 2019- started ASA 81 mg 12 weeks, PCR 20 weeks as baseline Loretta gonzalez [facility] 5 16:29:06 Nausea 085455130 Completed zofran Loretta Dorman [facility] 5 16:29:06 Anemia 154246070 Completed 2023 1 slowfe bid Loretta gonzalez [facility] 5 16:29:06 Cholesta sis 46523304 Completed ursodiol BID, Antenata l testing and 36-37 wk delivery Loretta Dorman null, [facility] 5 16:29:06 Group B Streptoc occus carrier 5491984917 103 Completed + GBS amp in labor Loretta Dorman null, [facility] 5 16:29:06 Pregnanc y 45700932 Active 2024 Loretta Dorman null, [facility] 5 16:54:25 Past pregnanc y history of pre-ecla mpsia 1598624521 Active 2024 delivery 36w6d Vicki Misael null, [facility] 5 21:38:18 Past pregnanc y history of cholesta sis in pregnanc y 6453200139 7062737 Active x2 Zita Licona CNM [address], [place], [address], [facility] 5 17:21:51 History of anemia 450502008 Active Zita Licona CNM [address], [place], [address], [facility] 5 17:22:21 Anxiety 95083705 Active fluoxeti ne 10 mg daily Zita Licona CNM [address], [place], [address], [facility] 5 17:23:46 Past pregnanc y history of pre-ecla mpsia 9069909528 Active 2024 delivery 36w6d Vicki Misael null, [facility] 5 21:38:18 Past pregnanc y history of gestatio nal hyperten eva 261819888 Active 2024 Loretta Dorman carlos, [facility] 5 18:01:39 Disorder of biliary tract 599311987 Active 2024 5 bile acids 7 Loretta Dorman carlos, [facility] 5 13:04:01 Problem Notes None recorded. Procedures Surgical History Date Name Laterality Status Provider Name and Address Organization Details Recorded Time 5 Date of Last Pap Smear completed Loretta Zambranotz [facility] 10/07/2024 18:10:35 1 DILATION & CURETTAGE (SURG) completed Annalee Erickson [facility] 03/02/2021 11:28:09 Imaging Results None recorded. Procedure Notes None recorded. Medical Equipment None [...] oral route every day 11/10 completed Prescrib muriel [place] e: No Locat ion: Juan Jose wallis [facility] M odify By: negro etienne DateTime : 01/30/20 18 01:00:00 PM Not Available Not Available Not Available ondansetr on HCl 4 mg tablet Take one tablet by oral route every 4-6 hours as needed 06/27 completed Not Available Not Available Not Available fluoxetin e 10 mg tablet TAKE 1 TABLET BY MOUTH EVERY DAY DIRECTED 12/25 completed Not Available Not Available Not Available acetamino phen 300 mg-codein e 30 [...] BY MOUTH FOUR TIMES A DAY NEEDED 12/25 completed Not Available Not Available Not Available benzonata te 100 mg capsule TAKE [...] days (of each month). 01/29 completed Prescrib ed Elsewher e: No Locat ion: [facility] odify By: [email or web address] Encounte r DateTime : [...] ondansetr on 4 mg disintegr ating tablet PLEASE SEE ATTACHED FOR DETAILED DIRECTIO NS 01/22 completed Not Available Not Available Not Available cefdinir 300 mg capsule TAKE 1 CAPSULE BY MOUTH EVERY 12 HOURS DIRECTED FOR 7 DAYS 10/28 completed Not Available Not Available Not Available fluticaso ne propionat e 50 mcg/actua tion nasal spray,chinmay pension SPRAY 2 SPRAYS INTO EACH NOSTRIL EVERY DAY 01/22 completed Not Available Not Available Not Available [...] completed Not Available Not Available Not Available cyclobenz aprine 5 mg tablet Take 1 tablet 3 times a day by oral route. 2024 active Not Available Not Available Not Avai lable bupropion HCl XL 150 mg 24 hr [...] Prescrib ed Elsewher e: Yes Loca tion: [facility] M odlarry By: [email or web address] Encounte r DateTime : 11/11/19 09:45:00 AM Not Available Not Available Not Available Slynd 4 mg (28) tablet Take 1 tablet every day by oral route. 05/22 completed Not Available Not Available Not Available ursodiol 400 mg capsule Take 1 capsule every 8 hours by oral route. 12/03 completed pharmacy called back and advised that they do not make this strength . Talk with Zita and she advised that they can change to 500mg. Not Available Not Available Not Available Nextstell is 3 mg-14.2 mg (28) tablet TAKE 1 TABLET BY MOUTH EVERY DAY 09/26 completed Not Available Not Available Not Available Vitals Date Recorded Body weight Systolic And Diastolic Provider Name and Address Organization Details Last Updated DateTime 02/19/2025 55712.54131 g 124/71 mm[Hg] Meseret Alvarez [facility] 02/19/2025 10:20:37 Social History Question Answer Notes LastModified by Organizat ion Details LastModified Time Tobacco Smoking Status Never Smoker Adri gonzalez, [facility] 08/07/2023 13:47:27 Do You Have An Advance Directive? No [email or web address] Information n ot available 10/10/2021 If You Are , What Was Your Level Of Alcohol Consumption Prior To ? None [email or web address] Information not available 08/07/2023 Are You Blind Or Do You Have Difficulty Seeing? No Information n ot available 02/22/2021 What Is Your Level Of Caffeine Consumption? Occasional [email or web address] Information not available 02/22/2021 How Much Tobacco Do You Chew? None [email or web address] Information not available 10/10/2021 In The 14 Days Before Symptom Onset, Have You Had Close Contact With A Laboratory-confirm ed COVID-19 While That Case Was Ill? No [email or web address] Information n ot available 02/22/2021 In The 14 Days Before Symptom Onset, Have You Had Close Contact With A Person Who Is Under Investigation For COVID-19 While That Person Was Ill? No [email or web address] Information not available 02/22/2021 Have You Been To An Area Known To Be High Risk For COVID-19? No [email or web address] Information not available 02/22/2021 Are You Deaf Or Do You Have Serious Difficulty Hearing? No [email or web address] Information not available 02/22/2021 What Type Of Diet Are You Following? REGULAR [email or web address] Information n ot available 02/22/2021 What Is The Highest Grade Or Level Of School You Have Completed Or The Highest Degree You Have Received? BF42753-5 [email or web address] Information not available 07/10/2023 Have You Ever Been Counseled For Unhealthy Alcohol Use? No [email or web address] Information not available 08/07/2023 Do You Use Your Seat Belt Or Car Seat Routinely? Yes [email or web address] Information not available 02/22/2021 Do You Have Smoke And Carbon Monoxide Detectors In Your Home? Yes [email or web address] Information not available 02/22/2021 How Much Tobacco Do You Smoke? No [email or web address] Information not available 10/10/2021 Do You Use Sunscreen Routinely? Yes [email or web address] Information not available 02/22/2021 Has Tobacco Cessation Counseling Been Provided? No [email or web address] Information not available 08/07/2023 Have You Used IV Drugs? No [email or web address] Information not available 10/10/2021 Do You Have Difficulty Walking Or Climbing Stairs? No [email or web address] Information not available 08/07/2023 Sex: Unknown Functional Status Question Answer Note LastModified by Organizat ion Details LastModified Time Do you use any illicit or recreational drugs? No [email or web address] Information not available 02/22/2021 Do you or have you ever used any other forms of tobacco or nicotine? No [email or web address] Information not available 08/07/2023 What is your level of alcohol consumption? None [email or web address] Information not available 04/30/2023 Are you able to walk? YESWOREST [email or web address] Information not available 02/22/2021 Are you able to care for yourself? 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 No Information not available 08/07/2023 What is your exercise level? Occasional [email or web address] Information not available 02/22/2021 Mental Status Question Answer Note LastModified by Organization D etails LastModified Time Do you feel stressed (tense, restless, nervous, or anxious, or unable to sleep at night)? [id number] [email or web address] Information not available 10/10/2021 Family History Relationship Description Onset Age of this Age Resolved Age Notes LastModified by Organization Details LastModified Time Maternal Grandmother Diabetes mellitus [email or web address] Not available 2019 14:03:09 Maternal Grandmother Hypertensive disorder [email or web address] Not available 2019 14:03:21 Medical History Condition Response Allergies (Food, seasonal, environmental ) Y Other N Drug/Latex Allergies/Reactions N Blood Transfusion N Breast Cancer N Dermatologic Disorders N Lung Disease N Defects or Inherited Disease N Breast Problem N Gestational Diabetes N Hematologic disorders N Anesthesia Complications N History of STI N Deep Vein Thrombosis N Polycystic ovary syndrome N Anxiety Disorder Y Autoimmune disease N Arthritis N Polyps N Infertility N Acid Reflux (GERD) N History of abnormal pap N Cancer N Varicosities N Stroke N Neurologic/Epilepsy N Endometriosis N High Cholesterol N Fibromyalgia N Headaches Y Kidney Disease N Heart Problems N Thyroid Problems N Kidney or Bladder Problems N GI Problems N Eating Disorder N Anemia N Art (IVF or FET) N Psychiatric Illness N Ovarian Cancer N Diabetes N Pulmonary (TB, Asthma) N Hepatitis/Liver Disease N No Past Medical History N Eczema N Urinary Tract Infection N Abuse/Domestic Violence N Asthma Y Trauma/Violence N Depression/ depression N Heart Disease N Pre-Eclampsia Y Hypertension Y Osteoporosis N Thrombophilias N Gynecological History Statement/Question Response Abnormal Pap [...] SNOMED-CT Code Diagnosis ICD10 Code Diagnosis Note [id number] [facility] [address] [address] 01/22/2025 10:41:17 01/22/2025 11:22:11 Gestation period, 23 weeks 75913589 Z3A.23 [id number] Zita Licona [facility] [address] [address] 02/19/2025 10:11:36 02/19/2025 10:55:02 Pruritic disorder of skin 7111490902 L29.9 Pain in pelvis 33866155 R10.2 Gestation period, 27 weeks 43508948 Z3A.27 Health Concerns Section Related Observation LastModified by Organization Detai ls LastModified Time None Recorded Concern Status LastModified by Organization Details LastModified Time None Recorded Payers Encounter Date Sequence Insurance Name Policy Number Policy Dawson Covered Member ID Dawson Member ID Guarantor Name 02/19/2025 1 [employer] [id number] Gonsalo Harding [id number] Anai Harding 02/19/2025 2 [place]: [facility] Anai Coffee [id number] Anai Harding OBGyn Episode Ob Episode Information Episode Created Date Number of Fetuses Patient Bloodtype Patient rh Status Prepregnancy Weight lbs Domestic Partner Domestic Partner Phone Father Name Pediatric Neurologist Status 10/29/19 25 1 O Positive 141 Gonsalo Molina OPEN Fetus Data First Name Last Name Admitted to NICU Weight (g) Sex Living Outcome Pediatric Complications Fetus ID Race Codes Race Delivery Type [id number] Problems Problem Notes Problem Name Start Date End Date Resolution Snomed Code Not e Disorder of biliary tract 01/25/2025 [id number] 01/22/2025 bile acids 7 Past history of cholestasis in [id number] x2 Past history of pre-eclampsia 10/28/2024 146658156137444 delivery 36 w6d History of anemia 621090078 Anxiety 47501651 fluoxetine 10 mg daily Juan Antonio Calculation [...] Type Weight in lbs Pre/Post Dialysis Refused 141.270731397533 BP Diastolic BP Location Tested BP Systolic BP Type 77 116 Fetus Heart Rate Present Fetus Movement A No Comments reviewed history of vaginal deliveries, unmedicated x 3, will start bASA tomorrow, reviewed education and precautions, US wnl, start routine care Flowsheet Date 11/27/2024 Coronel Score Blood Edema Fundus Height Fundus Units Glucose Ketones Leukocytes Nitrite Labor Signs Protein Cervic Dilation Cervic Effacement Cervic Station neg none Type Weight in lbs Pre/Post Dialysis Refused Weight 145.710920371316 BP Diastolic BP Location Tested BP Systolic BP Type 72 L arm 115 sitting Fetus Heart Rate Present A 145 Fetus Movement A Yes Comments no complaints, no problems, routine care, no contractions, no vaginal bleeding, no loss of fluid, no cramping Flowsheet Date 12/25/2024 Coronel Score Blood Edema Fundus Height Fundus Units Glucose Ketones Leukocytes Nitrite Labor Signs Protein Cervic Dilation Cervic Effacement Cervic Station Type Weight in lbs Pre/Post Dialysis Refused BP Diastolic BP Location Tested BP Systolic BP Type Fetus Heart Rate Present Fetus Movement Comments Flowsheet Date 12/25/2024 Coronel Score Blood Edema Fundus Height Fundus Units Glucose Ketones Leukocytes Nitrite Labor Signs Protein Cervic Dilation Cervic Effacement Cervic Station neg none Type Weight in lbs Pre/Post Dialysis Refused Weight 151.974441612728 BP Diastolic BP Location Tested BP Systolic BP Type 73 115 Fetus Heart Rate Present Fetus Movement A Yes Comments Patient is having some nause a. anatomy complete efw 72%, +FM, education and precautions, denies itching f/u 4 weeks Flowsheet Date 01/22/2025 Coronel Score Blood Edema Fundus Height Fundus Units Glucose Ketones Leukocytes Nitrite Labor Signs Protein Cervic Dilation Cervic Effacement Cervic Station neg trace Type Weight in lbs Pre/Post Dialysis Refused 157.422905210852 BP Diastolic BP Location Tested BP Systolic BP Type 70 108 Fetus Heart Rate Present Fetus Movement A Yes Comments no itching but would like to check levels, labs ordered, +FM, baby craving sweet food, sleeping ok, precautions and education f/u 4 weeks with gct Flowsheet Date 02/19/2025 Coronel Score Blood Edema Fundus Height Fundus Units Glucose Ketones Leukocytes Nitrite Labor Signs Protein Cervic Dilation Cervic Effacement Cervic Station Type Weight in lbs Pre/Post Dialysis Refused 161.194670862985 BP Diastolic BP Location Tested BP Systolic BP Type 71 L arm 124 sitting Fetus Heart Rate Present A 150 Fetus Movement A Yes Comments no itching would like to lio ck levels GCT today, +FM will try flexeril for back pain. education and precautions f/u 2 weeks Menstrual History Last Menstrual Date Menses Monthly [...]
--- OUTSIDE RECORDS SUMMARY | 2025-02-20 13:00 | XMS_ITS | Data Portability ---
Author Organization [facility] Address [address] [place] [address] Care Team Providers Care Sonar Watchstander Name Role Phone NAVI RUBIN Primary Care Provider Assessment Encounter Date Assessment Date Assessment LastModified by Organization Details LastModified Time 11/27/2024 11/27/2024 Patient is ___weeks . Discussed plan. [email or web address] Not available 11/27/2024 13:40:55 12/25/2024 12/25/2024 Patient is _19__weeks . Discussed plan. [email or web address] Not available 12/25/2024 12:29:06 01/22/2025 01/22/2025 Patient is _23__weeks . Discussed plan. [email or web address] Not available 01/22/2025 11:19:51 02/19/2025 02/19/2025 Patient is ___weeks . Discussed plan. [email or web address] Not available 02/19/2025 10:19:01 Plan of Treatment [...] Lab bile acids, total, serum 2024 025 [facility] (Lab), [address], [place], [address], 02/19/2025 10:36:06 CMP, serum or plasma 2024 025 [facility] (Lab), [address], [place], [address], 02/19/2025 10:36:06 Referral None recorde d. Procedures None recorde d. Surgeries None recorde d. Imaging US, obstetr ic, 2nd or 3rd trimest er 2024 025 [email or web address] [place], [facility] [address], [place], [address], 12/26/2024 13:35:07 Medication Orders cyclobe nzaprin e 5 mg tablet [address]/Pharmacy [id number], [address] [place], [address], 02/19/2025 10:49:27 Patient TargetsNo targets recorded. Patient InstructionsNo instructions recorded. Reason for Referral None Reported. Results Created Date Observation Date Name Description Value Unit Range Abnormal Flag Note LastModifiedBy Organization Detail LastModifiedTime 11/04/19 25 11/03/2024 [UNIT Y] ANEUP LOIDY NIPT fraction 14.1% normal Not Available [facility]io nto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 DETECT ED normal Not Available Yeahkatoon [facility] [address] [facility], [place], [address], 11/03/2024 15:43:35 11/04/19 25 11/03/2024 [UNIT Y] ANEUP LOIDY NIPT monosomy X LOW RISK <1 in 10,000 normal Not Available Billiontoon [facility] [address] [facility], [place], [address], 11/03/2024 15:43:35 11/04/19 25 11/03/2024 [UNIT Y] ANEUP 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,000 normal Not Available [facility] [address] [facility], [place], [address], 11/03/2024 15:43:35 11/04/19 25 11/03/2024 [UNIT Y] ANEUP LOIDY NIPT trisomy 18 LOW RISK <1 in 10,000 normal Not Available [facility] [address] [facility], [place], [address], 11/03/2024 15:43:35 11/04/19 25 11/03/2024 [UNIT Y] ANEUP LOIDY NIPT trisomy 21 LOW RISK <1 in 10,000 normal Not Available [facility] [address] [facility], [place], [address], 11/03/2024 15:43:35 11/04/19 25 11/03/2024 [UNIT Y] ANEUP LOIDY NIPT sex MALE normal Not Available Billiont [facility]one [address] [facility], [place], [address], 11/03/2024 15:43:35 11/04/19 25 11/03/2024 [UNIT Y] ANEUP LOIDY NIPT gestation SINGLE TON normal Not Available [facility] [address] [facility], [place], [address], 11/03/2024 15:43:35 11/04/19 25 11/03/2024 [UNIT Y] ANEUP LOIDY NIPT for detailed report, see pdf See PDF normal Not Available [facility] [address] [place], [address], 11/03/2024 15:43:35 10/29/19 25 10/28/2024 drug scree n, urine Amphetamines : negati ve Not Available [place] [address], [place], [address], 10/28/2024 18:03:17 10/29/19 25 10/28/2024 drug scree n, urine Cannabinoids : negati ve Not Available [place] [address], [place], [address], 10/28/2024 18:03:17 10/29/19 25 10/28/2024 drug scree n, urine Cocaine: negati ve Not Available [place] [address], [place], [address], 10/28/2024 18:03:17 10/29/19 25 10/28/2024 drug scree n, urine Opiates: negati ve Not Available [place] [address], [place], [address], 10/28/2024 18:03:17 10/29/19 25 10/28/2024 drug scree n, urine Phenocyclidi ne: negati ve Not Available [place] [address], [place], [address], 10/28/2024 18:03:17 10/29/19 25 10/28/2024 drug scree n, urine Barbiturates : negati ve Not Available [place] [address], [place], [address], 10/28/2024 18:03:17 10/29/19 25 10/28/2024 drug scree n, urine Benzodiazepi singh: negati ve Not Available [place] [address], [place], [address], 10/28/2024 18:03:17 10/29/19 25 10/28/2024 drug scree n, urine Ethanol: negati ve Not Available [place] [address], [place], [address], 10/28/2024 18:03:17 10/29/19 25 10/28/2024 drug scree n, urine Hallucinogen s: negati ve Not Available [place] [address], [place], [address], 10/28/2024 18:03:17 10/29/19 25 10/28/2024 drug scree n, urine Inhalants: negati ve Not Available [place] [address], [place], [address], 10/28/2024 18:03:17 10/29/19 25 10/28/2024 drug scree n, urine Anabolic Steroids: negati ve Not Available [place] [address], [place], [address], 10/28/2024 18:03:17 10/29/19 25 10/28/2024 drug scree n, urine Other: negati ve Not Available [place] [address], [place], [address], 10/28/2024 18:03:17 01/23/20 25 01/22/2025 CMP(C OMPRE HENSI VE METAB OLIC PANEL ) sodium 136 mmol/ L 133-14 6 Not Available [facility] [address], [place], [address], 01/23/2025 12:39:39 01/23/20 25 01/22/2025 CMP(C OMPRE HENSI VE METAB OLIC PANEL ) potassium 3.7 mmol/ L 3.5-5. 1 Not Available [facility] (Lab) [address], [place], [address], 01/23/2025 12:39:39 01/23/20 25 01/22/2025 CMP(C OMPRE HENSI VE METAB OLIC PANEL ) chloride 103 mmol/ L 98-107 Not Available [facility] (Lab) [address], [place], [address], 01/23/2025 12:39:39 01/23/20 25 01/22/2025 CMP(C OMPRE HENSI VE METAB OLIC PANEL ) carbon dioxide 27 mmol/ L 21-31 Not Available [facility] (Lab) [address], [place], [address], 01/23/2025 12:39:39 01/23/20 25 01/22/2025 CMP(C OMPRE HENSI VE METAB OLIC PANEL ) anion gap 6 mmol/ L 4-13 Not Available [facility] (Lab) [address], [place], [address], 01/23/2025 12:39:39 01/23/20 25 01/22/2025 CMP(C OMPRE HENSI VE METAB OLIC PANEL ) blood urea nitrogen 6 mg/dL 7-25 low Not Available [facility] (Lab) [address], [place], [address], 01/23/2025 12:39:39 01/23/20 25 01/22/2025 CMP(C OMPRE HENSI VE METAB OLIC PANEL ) creatinine 0.52 mg/dL 0.60-1 .30 low Not Available [facility] (Lab) [address], [place], [address], 01/23/2025 12:39:39 01/23/20 25 01/22/2025 CMP(C OMPRE HENSI VE METAB OLIC PANEL ) egfrcr (CKD-epi 2020) >90 mL/mi n/1.7 3_m2 >=60 Not Available [facility] (Lab) [address], [place], [address], 01/23/2025 12:39:39 01/23/20 25 01/22/2025 CMP(C OMPRE HENSI VE METAB OLIC PANEL ) calcium 8.7 mg/dL 8.3-10 .5 Not Available [facility] (Lab) [address], [place], [address], 01/23/2025 12:39:39 01/23/20 25 01/22/2025 CMP(C OMPRE HENSI VE METAB OLIC PANEL ) glucose 64 mg/dL 70-100 low Not Available [facility] (Lab) [address], [place], [address], 01/23/2025 12:39:39 01/23/20 25 01/22/2025 CMP(C OMPRE HENSI VE METAB OLIC PANEL ) protein, total 6.1 g/dL 6.4-8. 3 low Not Available [facility] (Lab) [address] [place], [address], 01/23/2025 12:39:39 01/23/20 25 01/22/2025 CMP(C OMPRE HENSI VE METAB OLIC PANEL ) albumin 3.6 g/dL 3.5-5. 0 Not Available [facility] (Lab) [address] [place], [address], 01/23/2025 12:39:39 01/23/20 25 01/22/2025 CMP(C OMPRE HENSI VE METAB OLIC PANEL ) ALT 6 units /L 9-43 low Not Available [facility] (Lab) [address] [place], [address], 01/23/2025 12:39:39 01/23/20 25 01/22/2025 CMP(C OMPRE HENSI VE METAB OLIC PANEL ) alkaline phosphatase 52 units /L 34-104 Not Available [facility] (Lab) [address] [place], [address], 01/23/2025 12:39:39 01/23/20 25 01/22/2025 CMP(C OMPRE HENSI VE METAB OLIC PANEL ) AST 13 units /L 13-39 Not Available [facility] (Lab) [address], [place], [address], 01/23/2025 12:39:39 01/23/20 25 01/22/2025 CMP(C OMPRE HENSI VE METAB OLIC PANEL ) bilirubin, total 0.4 mg/dL 0.2-1. 2 Not Available [facility] (Lab) [address], [place], [address], 01/23/2025 12:39:39 01/23/20 25 01/22/2025 BILE ACIDS , TOTAL bile acids, total 7 umol/ L 0-10 Test Perfo rmed by: [facility] [address] Not Available [facility] (Lab) [address], [place], [address], 01/23/2025 12:39:39 10/29/19 25 10/28/2024 US, obste tric, nucha l trans lucen cy No observ ation record ed. [email or web address] [place] [address], [place], [address], 10/28/2024 18:08:42 10/29/19 25 10/28/2024 US, obste tric, 1st trime ster No observ ation record ed. [email or web address] [place] [address], [place], [address], 10/28/2024 18:08:52 10/29/19 25 10/28/2024 US, obste tric, nucha l trans lucen cy No observ ation record ed. [email or web address] [place] [address], [place], [address], 10/28/2024 21:45:03 12/26/19 25 12/26/2024 US, obste tric, 2nd or 3rd trime ster No observ ation record ed. [facility] [address], [place], [address], 12/26/2024 10:36:00 12/26/19 25 12/25/2024 US, obste tric, follo w-up No observ ation record ed. [email or web address] [place] [address], [place], [address], 12/29/2024 21:35:06 Result Notes None recorded. Problems Name Problem SNOMED Code Status Onset Date Resolution Date Notes Provider Name and Address Organization Details Recorded Time [id number] Completed 201802/22/2021 Encounte r for suprvsn of normal pregnanc y, third trimeste r;Practi ce ID: 0001 Loretta gonzalez, [facility] 12:32:51 Pregnanc y, childbir th and puerperi um finding Completed 201802/22/2021 Encntr for suprvsn of normal first preg, third trimeste r;Practi ce ID: 0001 Loretta gonzalez, [facility] 12:33:16 Pregnanc y, childbir th and puerperi um finding Completed 201802/22/2021 Encntr for suprvsn of normal first pregnanc y, unsp trimeste r;Practi ce ID: 0001 Loretta gonzalez, [facility] 12:33:13 Pre-ecla mpsia 522823323 Completed 201802/22/2021 Mild to moderate pre-ecla mpsia, complica ting childbir th;Pract ice ID: 0001 Loretta gonzalez, [facility] 12:33:06 Lacerati on of female perineum Completed 201802/22/2021 Second degree perineal lacerati on during delivery ;Practic e ID: 0001 Loretta gonzalez, [facility] 12:32:49 Single live from singleto n pregnanc y 428826256 Completed 201802/22/2021 Single live ;Pr actice ID: 0001 Loretta gonzalez, [facility] 12:33:19 Gestatio n period, 38 weeks 19167307 Completed 201802/22/2021 38 weeks gestatio n of pregnanc y;Practi ce ID: 0001 Loretta gonzalez, [facility] 12:32:45 Clinical finding Completed 201802/22/2021 Encounte r for surveill ance of injectab le contrace ptive;Pr actice ID: 0001 Loretta gonzalez, [facility] 12:32:36 Pregnanc y test negative 932333890 Completed 201802/22/2021 Encounte r for pregnanc y test, result negative ;Practic e ID: 0001 Loretta gonzalez, [facility] 12:33:10 Bleeding 924116145 Completed 201902/22/2021 Abnormal uterine and vaginal bleeding , unspecif ied;Prac mary ID: 0001 Loretta gonzalez, [facility] 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 12:33:21 Antenata l screenin g for malforma tion Completed 201802/22/2021 Encounte r for antenata l screenin g for malforma tions;Re corded Elsewher e: No Locat ion: [facility] Jose wallis [facility] S ource: EHR Dough Cutter alfonzo: N Practi ce ID: 0001 Roderick lable Time: 09:00:00 AM Loretta Dorman carlos, [facility] 12:32:34 Finding of regulari ty of menstrua l cycle Completed 201702/22/2021 Irregula r bleeding ;Recorde d Elsewher e: No Locat ion: [facility] S ource: EHR Dough Cutter alfonzo: N Practi ce ID: 0001 Roderick lable Time: 01:00:00 PM Loretta Dorman carlos, [facility] 12:32:43 Antenata l screenin g Completed 201802/22/2021 Encounte r for antenata l screenin g for nuchal transluc ency;Rec orded Elsewher e: No Locat ion: [facility] [place] S ource: EHR Dough Cutter alfonzo: N Pauletteti ce ID: 0001 Roderick lable Time: 08:45:00 AM Loretta Lakia [facility], [facility] 12:32:32 Pregnanc y, childbir th and puerperi um finding Completed 201802/22/2021 Encntr for suprvsn of normal first preg, second trimeste r;Record ed Elsewher e: No Locat ion: [facility] [place] S ource: EHR Dough Cutter alfonzo: N Paluetteti ce ID: 0001 Roderick lable Time: 10:00:00 AM Loretta Dorman carlos, [facility] 12:33:15 Finding of defecati on Completed 201802/22/2021 Constipa tion, unspecif ied;Sedrick rded Elsewher e: No Locat ion: [facility] S ource: EHR Dough Cutter alfonzo: N Pauletteti ce ID: 0001 Roderick lable Time: 02:00:00 PM Loretta Lakia carlos, [facility] 12:32:39 Pregnanc y detectio n examinat ion Completed 201702/22/2021 Encounte r for pregnanc y test, result positive ;Recorde d Elsewher e: No Locat ion: [facility] S ource: EHR Dough Cutter alfonzo: N Pauletteti ce ID: 0001 Roderick lable Time: 11:00:00 AM Loretta gonzalez, [facility] 1 12:33:08 Gestatio n period, 8 weeks 57513474 Completed 201702/22/2021 8 weeks gestatio n of pregnanc y;Record ed Elsewher e: No Locat ion: [facility] S ource: EHR Dough Cutter alfonzo: N Pauletteti ce ID: 0001 Roderick lable Time: 11:00:00 AM Loretta gonzalez, [facility] 12:32:47 Finding of fertilit y Completed 201702/22/2021 Female infertil ity, unspecif ied;Sedrick rded Elsewher e: No Locat ion: [facility] S ource: EHR Dough Cutter alfonzo: N Pauletteti ce ID: 0001 Roderick lable Time: 08:30:00 AM Loretta gonzalez, [facility] 1 12:32:41 Pregnanc y 95634305 Completed 202106/04/2022 Loretta gonzalez, [facility] 5 16:54:25 Headache disorder 480797586 Completed community health prn Magda gonzalez, [facility] 2 13:17:24 Pregnanc y 00059585 Completed 202211/04/2023 Loretta gonzalez, [facility] 5 16:54:25 Past pregnanc y history of cholesta sis in pregnanc y 5376295824 0641415 Completed 2021 Loretta gonzalez, [facility] 5 16:29:06 Past pregnanc y history of pre-ecla mpsia 8574091461 26377 Completed 2019- started ASA 81 mg 12 weeks, PCR 20 weeks as baseline Loretta Zambranovannessa gonzalez, [facility] 5 16:29:06 Nausea 963211548 Completed zofran Loretta Dorman null, [facility] 5 16:29:06 Anemia 752226991 Completed 2023 1 slowfe bid Loretta Dorman carlos, [facility] 5 16:29:06 Cholesta sis 72044401 Completed ursodiol BID, Antenata l testing and 36-37 wk delivery Loretta Dorman null, [facility] 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 5 16:29:06 Pregnanc y 90172558 Active 2024 Loretta Dorman [facility], [facility] 5 16:54:25 Past pregnanc y history of pre-ecla mpsia 6269409681 84707 Active 2024 delivery 36w6d Vicki Douglas [facility], [facility] 5 21:38:18 Past pregnanc y history of cholesta sis in pregnanc y 0354079558 4382220 Active x2 Zita Licona CNM [address], [place], [address], [facility] 5 17:21:51 History of anemia 792283899 Active Zita Licona CNM [address], [place], [address], [facility] 5 17:22:21 Anxiety 05050328 Active fluoxeti ne 10 mg daily Zita Licona, CNM [address], [place], [address], [place] [facility] 5 17:23:46 Past pregnanc y history of pre-ecla mpsia 1101354212 06809 Active 2024 delivery 36w6d Vicki Douglas null, [facility] 5 21:38:18 Past pregnanc y history of gestatio nal hyperten eva 547788332 Active 2024 Loretta Dorman [facility], [facility] 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 5 13:04:01 Problem Notes None recorded. Procedures Surgical History Date Name Laterality Status Provider Name and Address Organization Details Recorded Time 5 Date of Last Pap Smear completed Loretta Dorman [facility] 10/07/2024 18:10:35 1 DILATION & CURETTAGE (SURG) completed Annalee Erickson [facility] 03/02/2021 11:28:09 Imaging Results None recorded. [...] Prescrib ed Elsewher e: No Locat ion: [facility] odify By: emernst Natasha r DateTime : 01/30/20 01:00:00 PM Not Available Not Available Not [...] Prescrib ed Elsewher e: No Locat ion: [facility] odify By: [email or web address] Encounte r DateTime : [...] mg-800 mcg tablet 10/29 completed Prescrib ed Felix e: Yes Loca tion: [facility] M odify By: edward etienne DateTime : 11/11/19 09:45:00 AM Not [...] Body mass index (BMI) Body weight Systolic And Diastolic Provider Name and Address Organization Details Last Updated DateTime 11/27/2024 165.1 cm 24.1 kg/m2 18394.89 g 115/72 mm[Hg] MAHENDRA Burgess [facility] 11/27/2024 13:41:33 Date Recorded Body height Body mass index (BMI) Body weight Systolic And Diastolic Provider Name and Address Organization Details Last Updated DateTime 12/25/2024 165.1 cm 25.1 kg/m2 02399.45 g 115/73 mm[Hg] Loretta Dorman [facility] 12/25/2024 11:58:47 Date Recorded Body weight Body mass index (BMI) Body height Systolic And Diastolic Provider Name and Address Organization Details Last Updated DateTime 01/22/2025 70303.002 09 g 26.1 kg/m2 165.1 cm 108/70 mm[Hg] Loretta Dorman [facility] 01/22/2025 10:56:51 Date Recorded Body weight Systolic And Diastolic Provider Name and Address Organization Details Last Updated DateTime 02/19/2025 68011.05858 g 124/71 mm[Hg] Meseret Kim [facility] 02/19/2025 10:20:37 Social History Question Answer Notes LastModified by Organizat ion Details LastModified Time Tobacco Smoking Status Never Smoker Adri Pramod gonzalez [facility] 08/07/2023 13:47:27 Do You Have An Advance Directive? No [email or web address] Information n ot available 10/10/2021 If You Are , What Was Your Level Of Alcohol Consumption Prior To ? None [email or web address] Information not available 08/07/2023 Are You Blind Or Do You Have Difficulty Seeing? No [email or web address] Information n ot available 02/22/2021 What Is Your Level Of Caffeine Consumption? Occasional [email or web address] Information not available 02/22/2021 How Much Tobacco Do You Chew? None [email or web address] Information not available 10/10/2021 In The 14 Days Before Symptom Onset, Have You Had Close Contact With A Laboratory-confirm ed COVID-19 While That Case Was Ill? No [email or web address] Information n ot available 02/22/2021 In The 14 Days Before Symptom Onset, Have You Had Close Contact With A Person Who Is Under Investigation For COVID-19 While That Person Was Ill? No Information not available 02/22/2021 Have You Been To An Area Known To Be High Risk For COVID-19? No [email or web address] Information not available 02/22/2021 Are You Deaf Or Do You Have Serious Difficulty Hearing? No [email or web address] Information not available 02/22/2021 What Type Of Diet Are You Following? REGULAR [email or web address] Information n ot available 02/22/2021 What Is The Highest Grade Or Level Of School You Have Completed Or The Highest Degree You Have Received? [id number] [email or web address] Information not available 07/10/2023 Have You Ever Been Counseled For Unhealthy Alcohol Use? No [email or web address] Information not available 08/07/2023 Do You Use Your Seat Belt Or Car Seat Routinely? Yes [email or web address] Information not available 02/22/2021 Do You Have Smoke And Carbon Monoxide Detectors In Your Home? Yes [email or web address] Information not available 02/22/2021 How Much Tobacco Do You Smoke? No [email or web address] Information not available 10/10/2021 Do You Use Sunscreen Routinely? Yes [email or web address] Information not available 02/22/2021 Has Tobacco Cessation Counseling Been Provided? No [email or web address] Information not available 08/07/2023 Have You Used IV Drugs? No [email or web address] Information not available 10/10/2021 Do You Have Difficulty Walking Or Climbing Stairs? No Information not available 08/07/2023 Sex: Unknown Functional Status Question Answer Note LastModified by Organizat ion Details LastModified Time Do you use any illicit or recreational drugs? No [email or web address] Information not available 02/22/2021 Do you or have you ever used any other forms of tobacco or nicotine? No [email or web address] Information not available 08/07/2023 What is your level of alcohol consumption? None [email or web address] Information not available 04/30/2023 Are you able to walk? YESWOREST [email or web address] Information not available 02/22/2021 Are you able to care for yourself? 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 No [email or web address] Information not available 08/07/2023 What is your exercise level? Occasional [email or web address] Information not available 02/22/2021 Mental Status Question Answer Note LastModified by Organization D etails LastModified Time Do you feel stressed (tense, restless, nervous, or anxious, or unable to sleep at night)? [id number] [email or web address] Information not available 10/10/2021 Family History Relationship Description Onset Age of this Age Resolved Age Notes LastModified by Organization Details LastModified Time Maternal Grandmother Diabetes mellitus [email or web address] Not available 2019 14:03:09 Maternal Grandmother Hypertensive disorder [email or web address] Not available 2019 14:03:21 Medical History Condition Response Allergies (Food, seasonal, environmental ) Y Other N Breast Cancer N Blood Transfusion N Drug/Latex Allergies/Reactions N Dermatologic Disorders N Lung Disease N [...] SNOMED-CT Code Diagnosis ICD10 Code Diagnosis Note [id number] Dylon Snyder MD [place] [address] [address] 05/24/2020 13:51:42 05/24/2020 15:20:16 Abnormal uterine bleeding [id number] 9100 N93.9 patient is a 24-year-ol d [...] discuss the results and consider treatment plan. [id number] Zita Licona CNM [place] [address],[place] [address] 02/22/2021 12:00:37 02/22/2021 14:10:03 Missed miscarriage 21463791 O02.1 [id number] Dylon Snyder MD [place] [address],[place] [address] 02/22/2021 11:59:27 02/22/2021 13:42:07 Missed miscarriage 09485303 O02.1 Z3A.01 [id number] Dylon Snyder MD [place] [address],[place] [address] 03/02/2021 11:13:00 03/02/2021 11:14:13 [id number] Dylon Snyder MD [place] [address],[place] [address] 03/09/2021 15:42:28 03/09/2021 16:45:48 Missed miscarriage 26006498 O02.1 Z3A.01 This patient is a 25-year-ol [...] possible. She was given precaution s there. [id number] Dylon Snyder MD [place] [address],[place] [address] 10/10/2021 14:30:43 10/10/2021 14:55:45 [id number] [facility] [address],[place] [address] 10/10/2021 14:33:27 10/10/2021 15:42:52 test positive 717597450 Z32.01 Risk factors addressed: Tobacco Cessation, Safe [...] annual well woman examinatio n and address [facility] . [id number] Meseret Hanna MD [place] [address],[place] [address] 11/07/2021 11:26:53 11/07/2021 12:30:12 screening 723092483 Z36.82 [id number] Meseret Hanna MD [place] [address],[place] [address] 11/07/2021 11:27:33 11/07/2021 12:34:38 Routine care 372510615 Z34.91 Headache 28605720 R51.9 [id number] [facility] [address],[place] [address] 12/06/2021 10:46:27 12/06/2021 11:26:46 Routine care 346238342 Z34.92 [id number] Dylon Snyder MD [place] [address],[place] [address] 12/06/2021 10:48:12 12/06/2021 13:23:57 [id number] MD Jacquie Ley [address],[place] [address] 01/04/2022 09:51:13 01/04/2022 10:55:30 screening 287351986 Z36.3 [id number] MD Jacquie Ley [address],[place] [address] 1 01/04/2022 09:52:38 01/04/2022 12:03:32 Routine care 532507256 Z34.82 [id number] eMseret Hanna MD [place] [address],[place] [address] 1 01/29/2022 10:54:29 01/29/2022 13:58:48 screening 909620514 Z36.2 Z3A.24 [id number] Meseret Hanna MD [place] [address],[place] [address] 1 01/29/2022 11:34:51 01/29/2022 12:21:11 Routine care 988093586 Z34.91 [id number] Zita Licona CNM [place] [address],[place] [address] 1 02/28/2022 11:02:16 02/28/2022 12:57:10 Routine care 138203311 Z34.92 [id number] Dylon Snyder MD [place] [address],[place] [address] 03/13/2022 11:01:25 03/13/2022 11:53:14 Uterine size for dates discrepancy 436589387 O26.843 Z3A.30 [id number] Zita Licona CNM [place] [address],[place] [address] 1 03/14/2022 11:22:42 03/14/2022 12:32:31 Routine care 185722680 Z34.92 [id number] Zita Licona CNM [place] [address],[place] [address] 03/28/2022 10:02:11 03/28/2022 10:38:22 Routine care 679103879 Z34.92 [id number] [facility] [address],[place] [address] 04/11/2022 11:49:51 04/11/2022 12:46:21 Routine care 020192597 Z34.92 Pruritic disorder 700879 002 L29.9 [id number] MD Jacquie Ley [address],[place] [address] 04/11/2022 12:18:15 04/11/2022 13:07:09 Cholestasis of 044688912 O26.619 [id number] MD Jacquie Ley [address],[place] [address] 1 04/11/2022 13:03:25 04/11/2022 14:06:44 condition affecting obstetrical care of mother 778368761 O36.8330 [id number] MD Jacquie Ley [address],[place] [address] 04/18/2022 11:52:01 04/18/2022 12:32:46 Cholestasis of 021669397 O26.619 [id number] MD Jacquie eLy [address],[place] [address] 1 04/18/2022 11:52:47 04/19/2022 14:38:55 Cholestasis of 875279546 O26.619 [id number] Zita Licona CNM [place] [address],[place] [address] 1 04/18/2022 11:53:23 04/18/2022 13:53:41 Routine care 958098801 Z34.92 [id number] MD Jacquie Ley [address],[place] [address] 04/20/2022 10:25:25 04/20/2022 11:15:16 Cholestasis of 744504923 O26.619 [id number] Zita Licona [facility] [address],[place] [address] 04/25/2022 11:38:30 04/25/2022 12:47:34 Routine care 296165616 Z34.92 [id number] Dylon Snyder MD [place] [address],[place] [address] 1 04/25/2022 11:49:58 04/25/2022 12:31:23 Cholestasis of 874627902 O26.619 [id number] Dylon Snyder MD [place] [address],[place] [address] 1 04/25/2022 11:49:58 04/25/2022 12:31:23 Cholestasis of 455286342 O26.619 O26.843 Z3A.36 [id number] Zita Licona [facility] [address],[place] [address] 06/27/2022 10:56:23 06/27/2022 12:01:47 care 019273959 Z39.2 [id number] Zita Licona [facility] [address],[place] [address] 1 09/26/2022 12:09:32 09/26/2022 12:58:27 Contraception care management 107020092 Z30.9 start slynd, give one month to be effective may have samples if not covered 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 Exam today within normal limits.2. U/S today c/w LMP; EDC 4/15/243. Pap smear done: will f/u as indicated. 4. Hx of preeclamps ia in prior ; discussed bASA ppx starting at 12 weeks. Patient to buy OTC5. Hx of childhood asthma, no meds currently6 . ACOG guidelines and plan of care for reviewed with patient. All questions answered.7 . Return to office in 2-3 weeks for new OB visit8. Genetic screening: desired, ordered today. [id number] BRIANA PATRICIO MD [place] [address],[place] [address] 04/30/2023 11:50:08 04/30/2023 12:16:35 [id number] Dylon Snyder MD [place] [address],[place] [address] 1 05/22/2023 10:53:37 05/22/2023 11:37:28 screening 462819236 Z36.82 Z3A.13 [id number] [facility] [address],[place] [address] 05/22/2023 10:54:18 05/22/2023 12:30:53 Gestation period, 13 weeks 14350885 Z3A.13 Nausea 883248627 R11.0 [id number] [facility] [address],[place] [address] 06/19/2023 16:50:02 06/19/2023 17:23:29 Routine care 629565136 Z34.92 [id number] Dylon Snyder MD [place] [address],[place] [address] 07/10/2023 10:34:15 07/10/2023 11:46:14 screening for malformation 083224117 Z36.3 Z3A.20 [id number] Zita Licona CNM [place] [address],[place] [address] 1 07/10/2023 10:37:49 07/10/2023 12:01:41 Routine care 042175466 Z34.92 [id number] Zita Licona CNM [place] [address],[place] [address] 1 08/07/2023 13:46:45 08/07/2023 14:22:40 Routine care 832008261 Z34.92 [id number] [facility] [address],[place] [address] 09/06/2023 13:55:37 09/06/2023 14:57:22 Itching of skin 133493050 L29.9 Routine an tenatal care 063410320 Z34.92 [id number] Dylon Snyder MD [place] [address],[place] [address] 09/06/2023 13:52:36 09/06/2023 14:35:13 Uterine size for dates discrepancy 550876568 O26.843 Z3A.28 [id number] [facility] [address],[place] [address] 09/20/2023 12:43:49 09/20/2023 13:27:01 Routine care 132155596 Z34.92 [id number] [facility] [address],[place] [address] 10/04/2023 15:34:47 10/04/2023 16:17:22 Routine care 811082438 Z34.92 [id number] Dylon Snyder MD [place] [address],[place] [address] 10/10/2023 14:47:34 10/10/2023 15:39:56 Uterine size for dates discrepancy 202145755 O26.843 Z3A.33 [id number] [facility] [address],[place] [address] 10/11/2023 12:37:34 10/11/2023 13:28:02 Routine care 155566281 Z34.92 [id number] [facility] [address],[place] [address] 1 10/16/2023 16:53:15 10/16/2023 17:54:24 Itching of skin 604020556 L29.9 Routine an tenatal care 613519841 Z34.92 [id number] MD Jacquie Ley [address],[place] [address] 10/24/2023 09:57:19 10/24/2023 10:22:47 Cholestasis of 121876001 O26.619 Z3A.35 [id number] Dylon Snyder MD [place] [address],[place] [address] 1 10/24/2023 09:57:48 10/24/2023 13:42:20 17417481 Z33.1 Cholestasi s of 026557625 O26.619 Z3A.35 [id number] [facility] [address],[place] [address] 1 10/25/2023 12:15:04 10/25/2023 12:59:59 Routine care 047881680 Z34.92 [id number] Dylon Snyder MD [place] [address],[place] [address] 11/01/2023 11:21:01 11/01/2023 13:13:24 Cholestasis of 110443989 O26.619 Z3A.35 [id number] Dylon Snyder MD [place] [address],[place] [address] 1 11/01/2023 11:21:21 11/01/2023 13:20:39 Cholestasis of 381217235 O26.619 Z3A.35 [id number] Zita Licona CNM [place] [address],[place] [address] 11/01/2023 11:21:38 11/01/2023 13:27:09 Routine care 600690487 Z34.92 Cholestasi s of 707625130 O26.643 [id number] Zita Licona [facility] [address],[place] [address] 12/04/2023 11:14:04 12/04/2023 12:17:51 care 210716721 Z39.2 normal visit, f/u 6 mo wwe [id number] Dylon Snyder MD [place] [address],[place] [address] 10/07/2024 16:57:23 10/07/2024 17:42:05 [id number] Zita Licona [facility] [address],[place] [address] 10/07/2024 16:58:02 10/09/2024 03:23:48 Venereal disease screening 728211689 Z11.3 Nausea and vomiting 1693 2000 R11.2 Amenorrhea 79457872 N91. 2 [id number] Dylon Snyder MD [place] [address],[place] [address] 10/28/2024 15:58:29 10/28/2024 16:28:48 screening 756038216 Z36.82 Z3A.11 [id number] Zita Licona [facility] [address],[place] [address] 1 10/28/2024 15:59:13 10/28/2024 17:47:57 Gestation period, 11 weeks 95592391 Z3A.11 Routine an tenatal care 186472377 Z34.92 [id number] Dylon Snyder MD [place] [address],[place] [address] 11/27/2024 13:36:27 11/27/2024 14:17:47 care status 687002865 Z34.82 [id number] MD Jacquie Ley [address],[place] [address] 12/25/2024 10:51:46 12/25/2024 12:04:49 Ultrasound scan - obstetric 361582356 Z36.3 Z3A.19 [id number] Zita Licona [facility] [address],[place] [address] 12/25/2024 10:54:00 12/25/2024 12:35:58 Gestation period, 19 weeks 84851631 Z3A.19 [id number] Zita Licona [facility] [address],[place] [address] 01/22/2025 10:41:17 01/22/2025 11:22:11 Gestation period, 23 weeks 98162420 Z3A.23 [id number] Zita Licona [facility] [address],[place] [address] 02/19/2025 10:11:36 02/19/2025 10:55:02 Pruritic disorder of skin 3674427781 L29.9 Pain in pelvis 74069861 R10.2 Gestation period, 27 weeks 15238931 Z3A.27 Health Concerns Section Related Observation LastModified by Organization Detai ls LastModified Time None Recorded Concern Status LastModified by Organization Details LastModified Time None Recorded Advance Directives Directive N: Payers Insurance Date Sequence Insurance Name Policy Number Policy Dawson Covered Member ID Dawson Member ID Guarantor Name 06/17/2023 PAYMENT PLAN Anaibrianne Calderónperezor 04/18/[address] [facility] Danie Harding [id number] Anai Kaitlynnerika 05/06/2023 PAYMENT PLAN Anaibrianne Calderónydor 02/18/2025 1 [facility] [id number] Demarco Harding [id number] Anai Montemayoror 05/22/2023 PAYMENT PLAN Anai Kaitlynnydor 09/09/2023 PAYMENT PLAN Anai Kaitlynnydor 12/06/2023 PAYMENT PLAN Anai Kaitlynnydor 02/19/2025 2 [place] Anai Silver [id number] Anai Kaitlynnydor 09/24/2022 1 [place] [id number] Demarco Harding [id number] Anai Harding 02/28/2022 *SELF PAY* Te brianneamber Harding 01/29/2022 PAYMENT PLAN Anai Montemayoror 03/29/2022 PAYMENT PLAN Anai Montemayoror 06/27/2022 PAYMENT PLAN Anai Montemayoror 11/27/2022 PAYMENT PLAN Anai Montemayoror 04/16/[address] [facility] [id number] Demarco Calderónerika [id number] Anai Montemayoror 02/19/2025 2 [facility] ON OR AFTER 02/09/21 (MEDICAID REPLACEMENT - HMO) Anai Silver [id number] Anai Montemayoror 11/23/2024 3 [place] [facility] Anai Montemayoror [id number] Anai Montemayoror 07/26/2023 PAYMENT PLAN Anai Harding OBGyn Episode Ob Episode Information Episode Created Date Number of Fetuses Patient Bloodtype Patient rh Status Prepregnancy Weight lbs Domestic Partner Domestic Partner Phone Father Name Human Resource Consultant Status 05/24/20 1 CLOSED Fetus Data First Name Last [...] Domestic Partner Domestic Partner Phone Father Name Human Resource Consultant Status 02/23/20 21 1 CLOSED Fetus Data First Name Last Name Admitted to NICU Weight (g) Sex Living Outcome Pediatric Complications Fetus ID Race Codes Race Delivery Type , Spontane ous 60622 Juan Antonio Calculation Initial Juan Antonio Date [...] Domestic Partner Domestic Partner Phone Father Name Human Resource Consultant Status 11/08/19 22 1 141 CLOSED Fetus Data First Name Last Name Admitted to NICU Weight (g) Sex Living Outcome Pediatric Complications Fetus ID Race Codes Race Delivery Type 2438.05 7 F true Full Term 07004 Vaginal Delivery Problems Problem Notes hypoglycemic episode, hx of as well.hx preeclampsia last Problem Name Start Date End Date Resolution Snomed Code Not e Headache disorder 751571716 fi oricet prn Juan Antonio Calculation Initial [...] Date Ultra Sound Latest Days Gestation 0 [email or web address] 11/07/2021 05/19/20 22 0 Pre- Flowsheet Flowsheet Date 11/07/2021 Coronel Score Blood Edema Fundus Height Fundus Units Glucose Ketones Leukocytes Nitrite Labor Signs Protein Cervic Dilation Cervic Effacement Cervic Station neg none Type Weight in lbs Pre/Post Dialysis Refused Weight 138.456693339957 BP Diastolic BP Location Tested BP Systolic [...] Weight in lbs Pre/Post Dialysis Refused Weight 142.137911288298 BP Diastolic BP Location Tested BP Systolic [...] Weight in lbs Pre/Post Dialysis Refused Weight 145.8013274943 BP Diastolic BP Location Tested BP Systolic [...] Weight in lbs Pre/Post Dialysis Refused Weight 149.218515286993 BP Diastolic BP Location Tested BP Systolic [...] Weight in lbs Pre/Post Dialysis Refused Weight 156.378507667960 BP Diastolic BP Location Tested BP Systolic [...] Weight in lbs Pre/Post Dialysis Refused Weight 157.402836568298 BP Diastolic BP Location Tested BP Systolic [...] Weight in lbs Pre/Post Dialysis Refused Weight 161.255462348257 BP Diastolic BP Location Tested BP Systolic [...] Weight in lbs Pre/Post Dialysis Refused Weight 162.563118707887 BP Diastolic BP Location Tested BP Systolic [...] Weight in lbs Pre/Post Dialysis Refused Weight 163.091628842325 BP Diastolic BP Location Tested BP Systolic [...] Estim ated Date of Delivery false Thalassemia (Malian, Grenadian, Mediterranean, Or Background): MCV < 80 false Neural Tube Defect (Meningomyelocele, Spina Bifi da, Or Anencephaly) false Congenital Heart Defect false Down Syndrome false Alex-Sachs (eg, Methodist, Cajun, Indonesian-Omani) f alse Zane Disease false Sickle Cell Disease Or Trait () false Hemophilia Or Other Blood Disorders false Muscular Dystrophy false Cystic Fibrosis false [place]'s Chorea false Intellectual Disability/Autism false If Yes, [...] Domestic Partner Domestic Partner Phone Father Name Human Resource Consultant Status 10/29/19 25 1 O Positive 141 Demarco Molina OPEN Fetus Data First Name Last Name Admitted to NICU Weight (g) Sex Living Outcome Pediatric Complications Fetus ID Race Codes Race Delivery Type [id number] Problems Problem Notes Problem Name Start Date End Date Resolution Snomed Code Not e Disorder of biliary tract 01/25/2025 745006662 01/22/2025 bile acids 7 Past history of cholestasis in 62793174848503808 x2 Past history of pre-eclampsia 10/28/2024 354587994618379 delivery 36 w6d History of anemia 931116466 Anxiety 06882379 fluoxetine 10 mg daily Juan Antonio Calculation Initial Juan Antonio Date Initial Exam Date Initial Exam Provider Initial Ultrasound Date Last Menstrual Period Date Ultra Sound Weeks Gestation 05/15/2025 10/28/2024 Zita Georgesgle 10/07/2024 08/08/2025 8 Eighteen To Twenty Week Juan Antonio Update Ultra Sound Date Fundal Height At Umbil Quickening Date Ultra Sound Latest Weeks Gestation Final Juan Antonio Confirmed By Final Juan Antonio Confirmed Date Final Juan Antonio Date Ultra Sound Latest Days Gestation 0 05/15/20 25 0 Pre- Flowsheet Flowsheet Date 10/28/2024 Coronel Score Blood Edema Fundus Height Fundus Units Glucose Ketones Leukocytes Nitrite Labor Signs Protein Cervic Dilation Cervic Effacement Cervic Station neg none none trace Type Weight in lbs Pre/Post Dialysis Refused 141.325693981760 BP Diastolic BP Location Tested BP Systolic [...] Weight in lbs Pre/Post Dialysis Refused Weight 145.120314231669 BP Diastolic BP Location Tested BP Systolic [...] Weight in lbs Pre/Post Dialysis Refused Weight 151.592371829222 BP Diastolic BP Location Tested BP Systolic [...] Type Weight in lbs Pre/Post Dialysis Refused 157.388830676005 BP Diastolic BP Location Tested BP Systolic [...] Type Weight in lbs Pre/Post Dialysis Refused 161.765412076807 BP Diastolic BP Location Tested BP Systolic [...] Domestic Partner Domestic Partner Phone Father Name Human Resource Consultant Status 05/22/20 23 1 O Positive 142 demarco harding CLOSED Fetus Data First Name Last Name Admitted to NICU Weight (g) Sex Living Outcome Pediatric Complications Fetus ID Race Codes Race Delivery Type 2769.76 86038 F true Prematur e [email or web address] Vaginal Delivery Problems Problem Notes ulysses Problem Name Start Date End Date Resolution Snomed Code Not e Nausea 632846198 zofran Group B Streptococcus carrier [id number] + GBS amp in labor Past history of cholestasis in 64617015380341431 2021 Past history of pre-eclampsia 810888364955622 2019- start ed ASA 81 mg 12 weeks, PCR 20 weeks as baseline Anemia 09/06/2023 MEDICATION 145316938 1 slowfe bid Cholestasis 87895137 ursodiol BID, testing and 36-37 wk delivery [...] Latest Days Gestation 05/22/20 23 13 [email or web address] 07/10/2023 04/15/2 024 5 Pre- Flowsheet Flowsheet Date 05/22/2023 Coronel Score Blood Edema Fundus Height Fundus Units Glucose Ketones Leukocytes Nitrite Labor Signs Protein Cervic Dilation Cervic Effacement Cervic Station neg none none trace Type Weight in lbs Pre/Post Dialysis Refused Weight 142.900776358165 BP Diastolic BP Location Tested BP Systolic [...] Weight in lbs Pre/Post Dialysis Refused Weight 146.539011237147 BP Diastolic BP Location Tested BP Systolic [...] Weight in lbs Pre/Post Dialysis Refused Weight 153.496909744293 BP Diastolic BP Location Tested BP Systolic [...] Weight in lbs Pre/Post Dialysis Refused Weight 153.323717304212 BP Diastolic BP Location Tested BP Systolic [...] Weight in lbs Pre/Post Dialysis Refused Weight 154.001469508984 BP Diastolic BP Location Tested BP Systolic [...] Weight in lbs Pre/Post Dialysis Refused Weight 157.337847404044 BP Diastolic BP Location Tested BP Systolic [...] Weight in lbs Pre/Post Dialysis Refused Weight 159.425464240940 BP Diastolic BP Location Tested BP Systolic [...] Weight in lbs Pre/Post Dialysis Refused Weight 159.035939969699 BP Diastolic BP Location Tested BP Systolic [...] Weight in lbs Pre/Post Dialysis Refused Weight 160.274160155443 BP Diastolic BP Location Tested BP Systolic BP Type 71 109 Fetus Heart Rate Present A 144 Present Fetus Movement A Yes Comments patient is having pain, cont ractions, pressure and swelling. itching all over, +FM going to [place] this weekend, travel precautions reviewed, check bile [...] Weight in lbs Pre/Post Dialysis Refused Weight 160.978723340909 BP Diastolic BP Location Tested BP Systolic BP Type 71 110 Fetus Heart Rate Present Fetus Movement Comments Flowsheet Date 10/25/2023 Coronel Score Blood Edema Fundus Height Fundus Units Glucose Ketones Leukocytes Nitrite Labor Signs Protein Cervic Dilation Cervic Effacement Cervic Station neg trace none trace Type Weight in lbs Pre/Post Dialysis Refused Weight 160.437957361357 BP Diastolic BP Location Tested BP Systolic [...] Weight in lbs Pre/Post Dialysis Refused Weight 158.280840035262 BP Diastolic BP Location Tested BP Systolic [...] Weight in lbs Pre/Post Dialysis Refused Weight 141.735531302268 BP Diastolic BP Location Tested BP Systolic [...] At Estimated Date of Delivery false Thalassemia (Malian, Grenadian, Mediterranean, Or Background): MCV < 80 false Neural Tube Defect (Meningom yelocele, Spina Bifida, Or Anencephaly) false Congenital Heart Defect false Down Syndrome false Alex-Sachs (eg, Methodist, Cajun, Indonesian-Omani) f alse Zane Disease false Sickle Cell Disease Or Trait () false Hemophilia Or Other Blood Disorders false Muscular Dystrophy false Cystic Fibrosis false Michael's Chorea false Intellectual Disability/Autism false If Yes, [...] 4 Induce d None 36.6 false Zita LiconaM cholestas is, anemia, nausea, GBS, hx pre-e Discharge Information Feeding Method Contraceptive Method Maternal HG B and HCT Levels
--- OUTSIDE RECORDS SUMMARY | 2025-02-20 13:00 | XMS_ITS | Data Portability ---
Author Organization [facility] [employer], Main Office Address [address] [place] [address] Assessment No assessment recorded. Plan of Treatment Reminders Order Date Submit Date Provider Last Modified By Organization Details Last Modified Time Details Appointments None recorded. Lab T3, free, serum or plasma [address] (Lab), [address] [place], [address], 5 08:09:08 TSH + free T4, serum 2024 025 [facility] (Lab), [address] [place], [address], 5 02:04:57 HbA1c (hemoglobin A1c), blood [address] (Lab), [address] [place], [address], 5 08:09:08 rapid flu (A+B) 2024 025 [facility], [address] [place] [address], [place], [address], 5 16:31:37 TSH, serum or plasma [address] (Lab), [address] [place], [address], 4 08:47:19 vitamin D, 25-hydroxy, total, serum 2023 024 [facility] (Lab), [address] [place], [address], 4 21:22:51 CBC w/ auto diff 2023 024 [facility] (Lab), [address] [place], [address], 4 21:22:51 TSH, serum or plasma 2023 024 [facility] (Lab), [address] [place], [address], 4 21:22:51 glycohemogl obin, total, blood [address] (Lab), [address] [place], [address], 4 08:06:42 Referral None recorded. Procedures None recorded. Surgeries None recorded. Imaging US, neck, soft tissue - Please call patient to schedule. [address], [facility] [address], [address], 5 10:11:17 US, thyroid - Please call patient to schedule. [address], [facility] [address], [address], 5 10:11:17 Medication Orders amoxicillin 500 mg tablet 2024 025 [facility]/Pharmacy #[id number], [address] [place], [address], 5 11:34:38 fluticasone propionate 50 mcg/actuati on nasal spray,suspe nsion [address]/Pharmacy #2510, [address] [place], [address], 5 11:17:28 cefdinir 300 mg capsule [address]/Pharmacy #2510, [address] [place], [address], 5 11:17:16 benzonatate 100 mg capsule [address]/Pharmacy #2510, [address] [place] [address], [address], 5 11:17:11 amoxicillin 875 mg tablet [address]/Pharmacy #2510, [address] [place] [address], [address], 5 12:03:39 cetirizine 10 mg tablet [address]/Pharmacy #2510, [address] [place] [address], [address], 5 12:03:44 Medrol (Gaurav) 4 mg tablets in a dose pack [address]/Pharmacy #2510, [address] [place], [address], 5 12:03:50 fluoxetine 10 mg tablet [address]/Pharmacy #2510, [address] [place], [address], 5 11:17:19 fluoxetine 10 mg tablet [address] [id number], [address] [place] [address], [id number], 11:17:19 Patient TargetsNo targets recorded. Patient InstructionsNo instructions recorded. Reason for Referral None Reported. Results Created Date Observation Date Name Description Value Unit Range Abnormal Flag Note LastModifiedBy Organization Detail LastModifiedTime 09/29/19 25 09/29/2024 rapid flu (A+B) Flu A negati ve Not Available [facility] [address] [facility], [place], [address], 09/29/2024 15:24:08 09/29/19 25 09/29/2024 rapid flu (A+B) Flu B negati ve Not Available [facility] [address] [place], [address], 09/29/2024 15:24:08 11/17/19 25 11/16/2024 imagi ng/di agnos tic resul t No observ ation record ed. [place] [address], [place], [address], 11/16/2024 23:20:07 Result Notes None recorded. Problems Name Problem SNOMED Code Status Onset Date Resolution Date Notes Provider Name and Address Organization Details Recorded Time Insomnia 731872011 Active Not Available [facility] 3 07:30:23 Generaliz ed enlarged lymph nodes 481693480 Active Not Available [facility] 3 07:30:23 Hypoglyce juhi 994380162 Completed 02/20/2024 GEOVANNI Gu [address] [facility], [address], [address] , [employer] [facility] [employer] 4 13:44:03 Reactive hypoglyce juhi 442277 Active Not Available [facility] 3 07:30:23 Depressiv e disorder 48193491 Active Not Available [facility] 3 07:30:23 Sinusitis 89794880 Completed 02/20/2024 GEOVANNI Gu [address] [facility], [place] [address], [place], [address] , [employer] [facility] [employer] [facility] 4 13:43:49 Acneiform eruption 131510751 Active Not Available [facility] 3 07:30:24 Dizziness 924634163 Active Not Available [facility] 3 07:30:24 Pain radiating to left arm 934675300 Completed 02/20/2024 GEOVANNI Gu [address], [place], [address] , [employer] [facility] [employer] [facility] 4 13:44:09 Eczema 42058762 Active Not Available [facility] 3 07:30:24 Paronychi a of finger 301123707 Active Not Available [facility] 3 07:30:24 Anxiety 24679138 Active Not Available [facility] 3 07:30:24 Hand pain 75387614 Completed 02/20/2024 GEOVANNI Gu [address], [place], [address] , [employer] [facility] [employer] [facility] 4 13:43:57 Upper respirato ry infection 68775995 Completed 02/20/2024 GEOVANNI Gu [address], [place], [address] , [employer] [facility] 4 13:43:54 Cervical lymphaden opathy 811440366 Active 2022 Kathleen Gtz MD [address], [address], [place], [address] , [employer] [facility] [employer] [facility] 3 17:01:20 Acute bacterial sinusitis 20803019 Active 2023 GEOVANNI Gu [address], [place], [address] , [employer] [facility] [employer] [facility] 4 14:25:38 Dry skin dermatiti s 899846867 Active 2023 GEOVANNI Gu [address], [place], [address] , [employer] [facility] [employer] [facility] 4 14:29:50 Malaise and fatigue 508475741 Active 2023 GEOVANNI Gu [address], [place], [address] , [employer] [facility] [employer] [facility] 4 14:18:45 Hyperthyr oidism 44981459 Active 2023 GEOVANNI Gu [address], [place], [address] , [employer] [facility] [employer] [facility] 4 11:57:30 Cough 01157981 Active 2024 GEOVANNI Gu [address], [place], [address] , [employer] [facility] 5 15:24:03 Dysfuncti on of bilateral eustachia n tubes 40700344095 05702 Active 2024 GEOVANNI Gu [address], [place], [address] , [employer] [facility] 5 15:26:33 Serous otitis media 95486401 Active 2024 GEOVANNI Gu [address], [place], [address] , [employer] [facility] 5 12:13:35 Headache 74819758 Active 2024 GEOVANNI Gu [address], [place], [address] , [employer] [facility] 5 11:43:29 Problem Notes None recorded. Medical Equipment None [...] tub. unit/0.1 mL intradermal injection solution active [facility] 2001# [phone] Not Available Not Available Not Available fluoxetine 10 mg tablet TAKE 1 TABLET BY MOUTH EVERY DAY DIRECTED 12/02 completed Not Available Not Available Not Available sertraline 100 mg tablet TK 1 [...] Not Available Not Available Not Available amoxicillin 500 mg tablet Take 1 tablet every 8 hours by oral route as directed for 7 days. 2024 active Not Available Not Available Not Avai lable amoxicillin 875 mg tablet TAKE 1 TABLET [...] CAPSULE BY MOUTH THREE TIMES A DAY 12/02 completed Not Available Not Available Not Available nystatin 100,000 unit/gram topical cream APPLY [...] Available ondansetron 4 mg disintegrat ing tablet PLEASE SEE ATTACHED FOR DETAILED DIRECTION S 12/02 completed Not Available Not Available Not Available cefdinir 300 mg capsule TAKE 1 CAPSULE BY MOUTH EVERY 12 HOURS DIRECTED FOR 7 DAYS 12/02 completed Not Available Not Available Not Available fluticasone propionate 50 mcg/actuati on nasal spray,suspe nsion SPRAY 2 SPRAYS INTO EACH NOSTRIL EVERY DAY 12/02 completed Not Available Not Available Not Available sertraline 50 mg tablet TK ONE T [...] saturation in Arterial blood by Pulse oximetry Systolic And Diastolic Provider Name and Address Organization Details Last Updated DateTime 5 168.28 cm 23.6 kg/m2 85833.1 8 g 98.2 [degF] 102 /min 24 /min 99 % 99 % 120/64 mm[Hg] Juliann Ingram RN [place] [facility] [place] [employer] [facility] 5 15:08:16 Date Recorded Body height Body mass index (BMI) Body weight Body temperature Heart rate Respiratory rate Oxygen saturation Oxygen saturation in Arterial blood by Pulse oximetry Systolic And Diastolic Provider Name and Address Organization Details Last Updated DateTime 5 168.28 cm 22.2 kg/m2 63451.9 g 98.2 [degF] 75 /min 20 /min 98 % 98 % 98/64 mm[Hg] Juliann Ingram RN [facility] [employer] [facility] 5 12:06:13 Date Recorded Body height Body mass index (BMI) Body weight Body temperature Heart rate Respiratory rate Oxygen saturation Oxygen saturation in Arterial blood by Pulse oximetry Systolic And Diastolic Provider Name and Address Organization Details Last Updated DateTime 5 168.28 cm 23.3 kg/m2 64636.6 9 g 97.5 [degF] 100 /min 24 /min 97 % 97 % 112/50 mm[Hg] Juliann Ingram RN [facility] [employer] [facility] 5 11:20:10 Date Recorded Body height Body mass index (BMI) Body weight Body temperature Heart rate Oxygen saturation Oxygen saturation in Arterial blood by Pulse oximetry Systolic And Diastolic Provider Name and Address Organization Details Last Updated DateTime 4 168.28 cm 22.7 kg/m2 12884.6 7 g 98 [degF] 75 /min 98 % 98 % 108/72 mm[Hg] Juliann Ingram RN [facility] [employer] [facility] 4 14:08:38 Date Recorded Body height Body mass index (BMI) Body weight Body temperature Heart rate Respiratory rate Oxygen saturation Oxygen saturation in Arterial blood by Pulse oximetry Systolic And Diastolic Provider Name and Address Organization Details Last Updated DateTime 4 168.28 cm 22.3 kg/m2 02837.4 4 g 97.5 [degF] 76 /min 20 /min 98 % 98 % 118/70 mm[Hg] Juliann Ingram RN [facility] [employer] [facility] 4 11:50:46 Social History Question Answer Notes LastModified by Organization Details LastModified Time Tobacco Smoking Status Former Smoker Juliann Ingram RN [facility], [facility] [employer] [facility] 02/20/2024 14:16:39 Do You Have An Advance Directive? No Information not available 02/20/2024 Is Blood Transfusion [...] Was Ill? No Information not available 02/20/2024 What Type Of Diet Are You Following? REGULAR Information not available 02/20/2024 Have There Been Any Changes To Your Family Or Social Situation? Yes 4 Months , 3 Children Information not available 12/02/2024 Do You Use Insect Repellent Routinely? Yes Information not available 02/20/2024 Where [facility] You Live? [facility] Information not available 02/20/2024 Do You Have A Medical Power Of Rn Wellness? No Information not available 02/20/2024 How Many [...] Yes Information not available 02/20/2024 Do You Use Sunscreen Routinely? Yes Information not available 02/20/2024 Have You Recently Traveled Abroad? No Information not available 02/20/2024 Sex: Unknown Functional Status Question Answer Note LastModified by Organization D etails LastModified Time What is your level of alcohol consumption? None Information not available 02/20/2024 Are you currently employed? No Information not available 02/20/2024 What is your exercise level? None Information not available 02/20/2024 Mental Status Question Answer Note LastModified by Organization D etails LastModified Time Do you feel stressed (tense, restless, nervous, or anxious, or unable to sleep at night)? [id number] Information not available 2024 Family History Relationship Description Onset Age of this Age Resolved Age Notes LastModified by Organization Details LastModified Time Father No current problems or disability [id number] Not available 10/10/2022 07:26:28 Mother No current problems or disability [id number] Not available 10/10/2022 07:26:28 Medical History Condition [...] Recorded Time DTaP 1 completed Not Available [facility] 10/10/2022 07:36:32 meningococcal C conjugate 1 completed Not Available [facility] 10/10/2022 07:36:32 Tdap 2 completed Not Available [facility] 10/10/2022 07:36:32 Tdap 9 completed Not Available [facility] 10/10/2022 07:36:32 Tdap 6 completed Not Available [facility] 10/10/2022 07:36:32 Past Encounters Encounter ID Performer Location Encounter Start Date Encounter Closed Date Diagnosis/Indication Diagnosis SNOMED-CT Code Diagnosis ICD10 Code Diagnosis Note [id number] Kathleen Gtz MD [facility] Jey lucero [address] [place] [address] 11/02/2021 00:00:00 11/02/2021 19:24:31 [id number] Kathleen Gtz MD [facility] [address] [place] [address] 07/26/2022 00:00:00 07/26/2022 19:09:57 [id number] Ben Gonzalez MD [address] [address] 02/20/2024 14:03:04 02/20/2024 14:44:56 Acute bacterial sinusitis 10419473 J01.90 Anxiety 38048704 F41.9 Dry skin dermatitis 2600 10952 L85.3 [id number] Ben Gonzalez MD [address] [address] 03/11/2024 14:00:13 03/11/2024 14:37:17 Anxiety 52179942 F41.9 Stop wellbutrin Malaise and fatigue 2717 83144 R53.81 [id number] Ben Gonzalez MD [address] [address] 2024 11:32:07 2024 13:01:32 Anxiety 13702668 F41.9 Stop wellbutrin Hyperthyroidism 44971262 E05.90 [id number] Ben Gonzalez MD [address] [address] 09/29/2024 14:50:55 09/29/2024 15:30:31 Cough 03649353 R05.9 notes tightness in her chest Acute bact erial sinusitis 57698546 J01.90 left sided, improved then worsened Dysfunctio n of bilateral eustachian tubes 2367876231 102604 H69.93 [id number] Ben Gonzalez MD [address] [address] 10/08/2024 11:58:32 10/08/2024 12:35:11 Serous otitis media 58060338 H65.02 Is taking Zyrtec. Advised to add Delsym [id number] GEOVANNI uG [facility] [address] [place] [address] 12/02/2024 11:10:25 12/02/2024 11:51:29 Generalized enlarged lymph nodes 033361764 R59.1 Submandibu lar, likely reactive.P atient would like imagingThy roid is enlarged, hx of hyperthyro idism Hyperthyroidism 69215117 E05.90 Will recheck labs Reactive hypoglycemia 31 7006 E16.1 Notes recent episodes of light-head edness Headache 03385336 R51.9 Daily x months Health Concerns Section Related Observation LastModified by Organization Detai ls LastModified Time None Recorded Concern Status LastModified by Organization Details LastModified Time None Recorded Advance Directives Directive N: Payers Insurance Date Sequence Insurance Name Policy Number Policy Dawson Covered Member ID Dawson Member ID Guarantor Name 12/07/2024 1 [place] [id number] Gonsalo Harding [id number] Anai Wisam Mehdi 03/19/2023 1 [place] [id number] Gonsalo Harding [id number] Anai M Mehdi 12/07/2024 2 [facility] (MEDICAID REPLACEMENT - HMO) Anai Joel Mehdi [id number] Anai [place] 02/20/2024 1 [facility] [id number] Gonaslo Harding [id number] Anai Wisam Mehdi Notes Date Note Type Note Provider Name and Address Organization Details Recorded Time 03/11/2024 text/html Anai Harding is a 28 [...] try an alternative medication. GEOVANNI Gu [address] [facility], [facility] [address], [place], [address], [facility] [place] [employer] 03/11/2024 14:31:46 2024 text/html Anai Hardnig is a 29 year old female patient [...] taking biotin. Will recheck TSH. GEOVANNI Gu [address], [address], [place], [address], [employer] [facility] [employer] 2024 12:48:58 09/29/2024 text/html Anai Harding is [...] see OB next week GEOVANNI Gu [address], [place], [address], [employer] 09/29/2024 15:40:28 10/08/2024 text/html Anai Harding is a 29 year old female Lt ear pain, will wake her from her sleep. Notes some relief when she take sudafed.Recently completed amoxicillin, did not take steroid due to GEOVANNI Gu [address], [address], [place], [address], [employer] [facility] [employer] 10/08/2024 12:28:51 12/02/2024 text/html Anai Harding is a 29 year old female patient here today for lymphadenopathy She is currently 16 weeks Left sided submandibular lymphadenopathy x 1 week, then migrated to the right side. Notes tenderness, pain with eating and drinking, and now neck pain. Notes that she does not feel sick. She did stop her fluoxetine, initially had anxiety and headaches. She states she has constantly had a headache x 2 months. Did ask OB and they advised her to take Tylenol. GEOVANNI Gu [address], [address], [place], [address], [employer] [facility] 12/02/2024 11:44:12 OBGyn Episode No OBEpisode recorded.
[2025-02-20 13:02] VITALS: BP 120/61; PULSE 94; RESP 14; TEMP 36.5; O2SAT 100
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
--- OUTSIDE RECORDS SUMMARY | 2025-02-20 13:30 | XMS_ITS | Clinical Summary ---
Author Organization [facility] Address [address] [place] [address] Care Team Providers Care Coat Ironer Hand Name Role Phone Kathleen Raphael MD Primary Care Provider [phone] Allergies No known active allergies Medications Vit-Fe [...] to complete this topic Insurance Care Teams Coat Ironer Hand Relationship Specialty Start Date End Date Kathleen Raphael MD [address] [place] [address] PCP - General FAMILY PRACTICE 04/05/23
== END 2025-02-20 13:41 | disposition home or self-care (01) ==
PROVIDERS: Emergency Provider Emergency Medicine
DX: Z04.1 Encounter for examination and observation following transport accident (principal); O99.613 Diseases of the digestive system complicating pregnancy, third trimester; K21.9 Gastro-esophageal reflux disease without esophagitis; Z3A.29 29 weeks gestation of pregnancy
CPT/HCPCS: 99283

== ENCOUNTER 2025-02-20 13:40 | Observation (INO) | payer OTHER, SELFPAY ==
[2025-02-20] VITALS (8 sets, daily range): BP systolic 87–119; BP diastolic 41–77; PULSE 74–94; TEMP 36.3; BMI 27.5
[2025-02-20] MEDS: ACETAMINOPHEN 500 MG TABLET 1000 MG PO (14:29)
--- NOTE | 2025-02-20 14:39 | OBADM ---
This patient, Anai Harding, admitted to the OB room OB Post 115 for observation. Patient/family oriented to hospital policies and general routines including ID bracelet, bed and alarms, visiting hours, pain management, procedures, bathroom and other care routines, personal items, smoking policy, room service/diet, and visiting hours. Patient/Family are encouraged to report perceived risks to care and to ask questions if they do not understand what they are told or what they should do.
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
== END 2025-02-20 16:17 | disposition home or self-care (01) ==
PROVIDERS: Admitting Provider Obstetrics & Gynecology; Visit Provider Obstetrics & Gynecology
DX: O9A.213 Injury, poisoning and certain other consequences of external causes complicating pregnancy, third trimester (principal); T14.90XA Injury, unspecified, initial encounter; Z3A.29 29 weeks gestation of pregnancy; V49.40XA Driver injured in collision with unspecified motor vehicles in traffic accident, initial encounter
CPT/HCPCS: A9270; G0378; G0379

== ENCOUNTER 2025-05-12 06:32 | Inpatient (IN) | payer BC, MEDICAID, SELFPAY ==
[2025-05-12] VITALS (46 sets, daily range): BP systolic 101–128; BP diastolic 63–78; PULSE 40–116; RESP 16–18; TEMP 36.4–37; O2SAT 69–100; BMI 27.3
--- OUTSIDE RECORDS SUMMARY | 2025-05-12 06:39 | XMS_ITS | Data Portability ---
Author Organization [facility] [employer], Main Office Address [address] [place] [address] Assessment No assessment recorded. Plan of Treatment Reminders Order Date Submit Date Provider Last Modified By Organization Details Last Modified Time Details Appointments None recorded. Lab T3, free, serum or plasma [address] (Lab), [address] [place], [address], 5 08:09:08 TSH + free T4, serum 2024 025 [facility] (Lab), [address] [place], [address], 5 02:04:57 HbA1c (hemoglobin A1c), blood [address] (Lab), [address] [place], [address], 5 08:09:08 rapid flu (A+B) 2024 025 [facility], [address] [place] [address], [place], [address], 5 16:31:37 TSH, serum or plasma [address] (Lab), [address] [place], [address], 4 08:47:19 vitamin D, 25-hydroxy, total, serum 2023 024 [facility] (Lab), [address] [place], [address], 4 21:22:51 CBC w/ auto diff 2023 024 [facility] (Lab), [address] [place], [address], 4 21:22:51 TSH, serum or plasma 2023 024 [facility] (Lab), [address] [place], [address], 4 21:22:51 glycohemogl obin, total, blood [address] (Lab), [address] [place], [address], 4 08:06:42 Referral None recorded. Procedures None recorded. Surgeries None recorded. Imaging US, neck, soft tissue - Please call patient to schedule. [address], [facility] [address], [address], 5 10:11:17 US, thyroid - Please call patient to schedule. [address], [facility] [address], [address], 5 10:11:17 Medication Orders amoxicillin 500 mg tablet 2024 025 [facility]/Pharmacy #[id number], [address] [place], [address], 5 11:34:38 fluticasone propionate 50 mcg/actuati on nasal spray,suspe nsion [address]/Pharmacy #2510, [address] [place], [address], 5 11:17:28 cefdinir 300 mg capsule [address]/Pharmacy #2510, [address] [place], [address], 5 11:17:16 benzonatate 100 mg capsule [address]/Pharmacy #2510, [address] [place] [address], [address], 5 11:17:11 amoxicillin 875 mg tablet [address]/Pharmacy #2510, [address] [place] [address], [address], 5 12:03:39 cetirizine 10 mg tablet [address]/Pharmacy #2510, [address] [place] [address], [address], 5 12:03:44 Medrol (Gaurav) 4 mg tablets in a dose pack [address]/Pharmacy #2510, [address] [place], [address], 5 12:03:50 fluoxetine 10 mg tablet [address]/Pharmacy #2510, [address] [place], [address], 5 11:17:19 fluoxetine 10 mg tablet [address] [id number], [address] [place] [address], [id number], 11:17:19 Patient TargetsNo targets recorded. Patient InstructionsNo instructions recorded. Reason for Referral None Reported. Results Created Date Observation Date Name Description Value Unit Range Abnormal Flag Note LastModifiedBy Organization Detail LastModifiedTime 09/29/19 25 09/29/2024 rapid flu (A+B) Flu A negati ve Not Available [facility] [address] [facility], [place], [address], 09/29/2024 15:24:08 09/29/19 25 09/29/2024 rapid flu (A+B) Flu B negati ve Not Available [facility] [address] [place], [address], 09/29/2024 15:24:08 11/17/19 25 11/16/2024 imagi ng/di agnos tic resul t No observ ation record ed. [place] [address], [place], [address], 11/16/2024 23:20:07 Result Notes None recorded. Problems Name Problem SNOMED Code Status Onset Date Resolution Date Notes Provider Name and Address Organization Details Recorded Time Insomnia 226151152 Active Not Available [facility] 3 07:30:23 Generaliz ed enlarged lymph nodes 759079383 Active Not Available [facility] 3 07:30:23 Hypoglyce juhi 497004072 Completed 02/20/2024 GEOVANNI Gu [address] [facility], [address], [address] , [employer] [facility] [employer] 4 13:44:03 Reactive hypoglyce juhi 687356 Active Not Available [facility] 3 07:30:23 Depressiv e disorder 57732538 Active Not Available [facility] 3 07:30:23 Sinusitis 07201153 Completed 02/20/2024 GEOVANNI Gu [address] [facility], [place] [address], [place], [address] , [employer] [facility] [employer] [facility] 4 13:43:49 Acneiform eruption 779353360 Active Not Available [facility] 3 07:30:24 Dizziness 456798680 Active Not Available [facility] 3 07:30:24 Pain radiating to left arm 040951065 Completed 02/20/[address]24 GE[address] Gu [address], [place], [address] , [employer] [facility] [employer] [facility] 4 13:44:09 Eczema 53177016 Active Not Available [facility] 3 07:30:24 Paronychi a of finger 051344369 Active Not Available [facility] 3 07:30:24 Anxiety 72952965 Active Not Available [facility] 3 07:30:24 Hand pain 89594156 Completed 02/20/2024 GEOVANNI Gu [address], [place], [address] , [employer] [facility] [employer] [facility] 4 13:43:57 Upper respirato ry infection 98519450 Completed 02/20/2024 GEOVANNI Gu [address], [place], [address] , [employer] [facility] 4 13:43:54 Cervical lymphaden opathy 191574796 Active 2022 Kathleen Gtz MD [address], [place], [address] , [employer] [facility] [employer] [facility] 3 17:01:20 Acute bacterial sinusitis 20181806 Active 2023 GEOVANNI Gu [address], [place], [address] , [employer] [facility] [employer] [facility] 4 14:25:38 Dry skin dermatiti s 738248942 Active 2023 GEOVANNI Gu [address], [place], [address] , [employer] [facility] [employer] [facility] 4 14:29:50 Malaise and fatigue 836855555 Active 2023 GEOVANNI Gu [address], [place], [address] , [employer] [facility] [employer] [facility] 4 14:18:45 Hyperthyr oidism 64374470 Active 2023 GEOVANNI Gu [address], [place], [address] , [employer] [facility] [employer] [facility] 4 11:57:30 Cough 68264593 Active 2024 GEOVANNI Gu [address], [place], [address] , [employer] [facility] 5 15:24:03 Dysfuncti on of bilateral eustachia n tubes 04806883144 35179 Active 2024 GEOVANNI Gu [address], [place], [address] , [employer] [facility] 5 15:26:33 Serous otitis media 31925245 Active 2024 GEOVANNI Gu [address], [place], [address] , [employer] [facility] 5 12:13:35 Headache 96358148 Active 2024 GEOVANNI Gu [address], [place], [address] , [employer] [facility] 5 11:43:29 Problem Notes None [...] tub. unit/0.1 mL intradermal injection solution active [facility]# [id number] -[phone] Not Available Not Available Not [...] verbal numeric rating [Score] - Reported Systolic And Diastolic Provider Name and Address Organization Details Last Updated DateTime 5 168.28 cm 23.6 kg/m2 15401.1 8 g 98.2 [degF] 102 /min 24 /min 99 % 99 % 9 120/64 mm[Hg] Juliann Ingram RN [place] - [facility] [employer] [facility] 5 15:08:16 Date Recorded Body height Body mass index (BMI) Body weight Body temperature Heart rate Respiratory rate Oxygen saturation Oxygen saturation in Arterial blood by Pulse oximetry Pain severity - 0-10 verbal numeric rating [Score] - Reported Systolic And Diastolic Provider Name and Address Organization Details Last Updated DateTime 5 168.28 cm 22.2 kg/m2 49347.9 g 98.2 [degF] 75 /min 20 /min 98 % 98 % 0 98/64 mm[Hg] Juliann Ingram RN [facility] [employer] [facility] 5 12:06:13 Date Recorded Body height Body mass index (BMI) Body weight Body temperature Heart rate Respiratory rate Oxygen saturation Oxygen saturation in Arterial blood by Pulse oximetry Pain severity - 0-10 verbal numeric rating [Score] - Reported Systolic And Diastolic Provider Name and Address Organization Details Last Updated DateTime 5 168.28 cm 23.3 kg/m2 73524.6 9 g 97.5 [degF] 100 /min 24 /min 97 % 97 % 0 112/50 mm[Hg] Juliann Ingram RN [facility] [employer] [facility] 5 11:20:10 Date Recorded Body height Body mass index (BMI) Body weight Body temperature Heart rate Oxygen saturation Oxygen saturation in Arterial blood by Pulse oximetry Pain severity - 0-10 verbal numeric rating [Score] - Reported Systolic And Diastolic Provider Name and Address Organization Details Last Updated DateTime 4 168.28 cm 22.7 kg/m2 56598.6 7 g 98 [degF] 75 /min 98 % 98 % 0 108/72 mm[Hg] Juliann Ingram RN [facility] [employer] [facility] 4 14:08:38 Date Recorded Body height Body mass index (BMI) Body weight Body temperature Heart rate Respiratory rate Oxygen saturation Oxygen saturation in Arterial blood by Pulse oximetry Pain severity - 0-10 verbal numeric rating [Score] - Reported Systolic And Diastolic Provider Name and Address Organization Details Last Updated DateTime 4 168.28 cm 22.3 kg/m2 62236.4 4 g 97.5 [degF] 76 /min 20 /min 98 % 98 % 0 118/70 mm[Hg] Juliann Ingram RN [facility] [employer] [facility] 4 11:50:46 Social History Question Answer Notes LastModified by Organization Details LastModified Time Tobacco Smoking Status Former Smoker Juliann Ingram RN [facility], [facility] [employer] [facility] 02/20/2024 14:16:39 Do You Have [...] not available 02/20/2024 Where Do You Live? [facility] Information not available 02/20/2024 Do You Have A Medical Power Of Element Setter? No Information not available 02/20/2024 How Many [...] anxious, or unable to sleep at night)? [id number] Information not available 2024 Family History Relationship Description Onset Age of this Age Resolved Age Notes LastModified by Organization Details LastModified Time Father No current problems or disability [id number] Not available 10/10/2022 07:26:28 Mother No current problems or disability [id number] Not available 10/10/2022 07:26:28 Medical History Condition [...] Recorded Time DTaP 1 completed Not Available [facility] 10/10/2022 07:36:32 meningococcal C conjugate 1 completed Not Available [facility] 10/10/2022 07:36:32 Tdap 2 completed Not Available [facility] 10/10/2022 07:36:32 Tdap 9 completed Not Available [facility] 10/10/2022 07:36:32 Tdap 6 completed Not Available [facility] 10/10/2022 07:36:32 Past Encounters Encounter ID Performer Location Encounter Start Date Encounter Closed Date Diagnosis/Indication Diagnosis SNOMED-CT Code Diagnosis ICD10 Code Diagnosis IMO Codes Diagnosis Note [id number] Kathleen Gtz MD [facility] [address] [place] [address] 11/02/2021 00:00:00 11/02/2021 19:24:31 [id number] Kathleen Gtz MD [facility] [address] [place] [address] 07/26/2022 00:00:00 07/26/2022 19:09:57 [id number] Ben Gonzalez MD [address] [address] 02/20/2024 14:03:04 02/20/2024 14:44:56 Acute bacterial sinusitis 85628304 J01.90 Anxiety 67498034 F41.9 Dry skin dermatitis 2600 66725 L85.3 [id number] Ben Gonzalez MD [address] [address] 03/11/2024 14:00:13 03/11/2024 14:37:17 Anxiety 74497025 F41.9 Stop wellbutrin Malaise and fatigue 2717 51616 R53.81 [id number] Ben Gonzalez MD [address] [address] 2024 11:32:07 2024 13:01:32 Anxiety 10542274 F41.9 Stop wellbutrin Hyperthyroidism 36975361 E05.90 [id number] Ben Gonzalez MD [address] [address] 09/29/2024 14:50:55 09/29/2024 15:30:31 Cough 17450878 R05.9 notes tightness in her chest Acute bact erial sinusitis 19051132 J01.90 left sided, improved then worsened Dysfunctio n of bilateral eustachian tubes 2078004931 427435 H69.93 [id number] Ben Gonzalez MD [facility] [address] 10/08/2024 11:58:32 10/08/2024 12:35:11 Serous otitis media 45989250 H65.02 Is taking Zyrtec. Advised to add Delsym [id number] GEOVANNI Gu [facility] [address] 12/02/2024 11:10:25 12/02/2024 11:51:29 Generalized enlarged lymph nodes 491138005 R59.1 Sub[place], likely reactive.P atient would like imagingThy roid is enlarged, hx of hyperthyro idism Hyperthyroidism 62097520 E05.90 Will recheck labs Reactive hypoglycemia 31 7006 E16.1 Notes recent episodes of light-head edness Headache 73986087 R51.9 Daily x months Health Concerns Section Related Observation LastModified by Organization Detai ls LastModified Time None Recorded Concern Status LastModified by Organization Details LastModified Time None Recorded Advance Directives Directive N: Payers Insurance Date Sequence Insurance Name Policy Number Policy Dawson Covered Member ID Dawson Member ID Guarantor Name 12/07/2024 1 [place] [id number] Gonsalo Harding [id number] Anai Harding 03/19/2023 1 [place] [id number] Gonsalo Harding [id number] Anai Harding 12/07/2024 2 [facility] (MEDICAID REPLACEMENT - HMO) Anai Harding [id number] Anai Harding 02/20/2024 1 [facility] [id number] Gonsalo Harding [id number] Anai Harding Notes Date Note Type Note [...] try an alternative medication. GEOVANNI Gu [address], [place], [address], [employer] 03/11/2024 14:31:46 2024 text/html Anai Harding is [...] biotin. Will recheck TSH. GEOVANNI Gu [address], [place], [address], [employer] 2024 12:48:58 09/29/2024 text/html Anai Harding is [...] see OB next week GEOVANNI Gu [address], [place], [address], [employer] 09/29/2024 15:40:28 10/08/2024 text/html Anai Harding is a 29 year old female Lt ear pain, will wake her from her sleep. Notes some relief when she take sudafed.Recently completed amoxicillin, did not take steroid due to GEOVANNI Gu [address], [place], [address], [employer] [facility] 10/08/2024 12:28:51 12/02/2024 text/html Anai Harding is [...] and they advised her to take Tylenol. Kiesha Casillas, [employer] [address] [facility], [facility] [address], [place], [address], [place] [employer] [facility] 12/02/2024 11:44:12 OBGyn Episode No OBEpisode recorded.
--- OUTSIDE RECORDS SUMMARY | 2025-05-12 06:39 | XMS_ITS | Clinical Summary ---
Author Organization [facility] Address [address] [place] [address] Care Team Providers Care Customer Service Driver Name Role Phone Kathleen Raphael MD Primary Care Provider [phone] Allergies No known active allergies Medications Vit-Fe [...] 1995 Annual Physical 1998 Hepatitis C 2013 HPV Vaccines (1 - 3-dose SCDM series) 2022 COVID-19 Vaccine ( season) 2025 DTaP, Tdap and Td Vaccines (9 - [...] to complete this topic Insurance Care Teams Customer Service Driver Relationship Specialty Start Date End Date Kathleen Raphael MD [address] [address] PCP - General FAMILY PRACTICE 04/05/23
[2025-05-12 07:20] LABS: Hematocrit 31.9 % (37.0-47.0); Hemoglobin 10.4 g/dL (12.0-15.0); Immature Granulocyte Percent A 0.9 % (0-0.5); Lymphocytes Absolute Auto 1.61 K/mm3 (0.9-3.2); Mean Corpuscular HGB Conc 32.6 g/dl (32-36); Mean Corpuscular Hemoglobin 27.7 pg (26-34); Mean Corpuscular Volume 84.8 fl (80-100); Nucleated Red Blood Cells Absolute Auto 0.000 K/mm3 (0.0-0.012); Nucleated Red Blood Cells Perc 0.0 % (0.0-0.2); Platelet Count Result 214 k/mm3 (150-375); Red Blood Count 3.76 M/mm3 (4.2-5.4); White Blood Count 7.1 K/mm3 (4.5-10.0)
--- NOTE | 2025-05-12 07:36 | WPDOBADMIT ---
Obstetrics - Admit Note Admission Note: record reviewed. No pertinent additions to the history and/or any subsequent changes in the physical findings that are not consistent with the expected course of the were found. Additions to the history and/or subsequent changes in the physical findings follow. Admit for IOL, SVE 1.5/70/-2, AROM small amount of clear, odorless fluid, anticipate vaginal delivery
[2025-05-12] MEDS: LACTATED RINGERS 1,000 ML 125 ML IV CONT (07:38)
[2025-05-12] MEDS: OXYTOCIN 30 UNITS/NS 500 ML 30 UNITS/500 ML BAG IV CONT (07:38)
[2025-05-12] MEDS: AMPICILLIN SODIUM 2 GM in SODIUM CHLORIDE 0.9% IV 100 ML 200 ML IVPB (07:38)
[2025-05-12 09:53] LABS: Syphilis IgG/IgM Antibody Non-Reactive (Nonreactive)
--- NOTE | 2025-05-12 11:19 | PM.OBPRVD ---
OB - Vaginal Delivery Note Procedure Delivery date: 05/12/25 Induction method: AROM and Per Pitocin Protocol Delivery monitor: External FHT and External Uterine Route of delivery: Episiotomy description: None Laceration Description: Perineal - 1st Degree Specimen: No Quantitative Blood Loss (ml): 150 Anesthesia type: None Disposition: Floor Complications: No immediate complications Baby Date of : 05/12/25 Time of : 11:08 Gestational Age by Date: 39 Infant gender: Male presentation: vertex position: Left Occiput Anterior Placenta delivery description: Expressed Cord Vessel Description: 3 Vessels, Clamped/Cut and Delayed Cord Clamping score one minute: 9 score five minutes: 9
[2025-05-12] MEDS: OXYTOCIN 30 UNITS/NS 500 ML 30 UNITS/500 ML BAG 125 UNITS IV CONT (11:41)
[2025-05-12] MEDS: IBUPROFEN 600 MG TABLET PO ×2 (12:10→16:36)
[2025-05-12] MEDS: WITCH HAZEL 40 PADS 1 PAD TOPICAL (12:14)
[2025-05-12] MEDS: BENZOCAINE 20% AER SPR (*SP) 56 GM CAN 1 SPRAY TOPICAL (12:14)
[2025-05-12] MEDS: ACETAMINOPHEN 325 MG TABLET 650 MG PO (16:36)
[2025-05-13 03:40] VITALS: BP 108/71; PULSE 76; RESP 16; TEMP 36.6; O2SAT 100
[2025-05-13] MEDS: ACETAMINOPHEN 325 MG TABLET 650 MG PO ×2 (03:52→09:55)
[2025-05-13] MEDS: IBUPROFEN 600 MG TABLET PO ×3 (03:52→16:57)
[2025-05-13 05:21] LABS: Hematocrit 30.1 % (37.0-47.0); Hemoglobin 9.7 g/dL (12.0-15.0)
[2025-05-13 07:40] VITALS: BP 111/68; PULSE 66; RESP 16; TEMP 36.7; O2SAT 100
[2025-05-13] MEDS: MULTIVIT/MIN/PREN/FOL AC/IRON TABLET 1 TAB PO (08:10)
[2025-05-13] MEDS: DOCUSATE SODIUM 100 MG CAPSULE PO ×2 (08:11→16:04)
--- NOTE | 2025-05-13 08:23 | P.PNOB_ITS ---
OB - PN: Subj Subjective Date/time seen: 05/13/25 08:23 Patient comments: no complaints, pain well controlled, incisional pain, tolerating diet and flatus present OB - PN: Obj Data Labs 05/13/25 03:41 Labs: Laboratory Results - last 24 hr 05/12/25 05/13/25 07:12 03:41 Hgb 9.7 L Hct 30.1 L Syphilis IgG/IgM Ab Non-reactive OB - PN A/P Plan day: 1 Plan: routine care Comments: No problems, routine care Time Spent With Patient Time: Total time spent is greater than 50% in coordination of care (as documented) at patient's floor/unit and/or counseling patient: Exam 2 Const: General: comfortable, no acute distress and alert Resp: Effort & Inspection: normal respiratory effort Auscultation: no crackles, no rales and no rhonchi Cardio: Rate: regular rate Heart sounds: no click, no murmurs and no rubs GI: Inspection: non-distended GI Palp: No Tenderness to palpation present (GI) Auscultation: normal bowel sounds Other: Incision - CDI Extrem: General: normal to inspection, no pedal edema and no calf tenderness
--- NOTE | 2025-05-13 09:00 | PC.NURSE ---
Introductions were made, then consulted with patient to assess needs related to . Discussed with mother her?plans to feed?her and the?experience so far. Per mother baby is latching optimally and without pain, he was cluster feeding last night and she did attempt a couple of bottles but baby prefers the breast. Resources provided for inpatient and outpatient services with the feeding sheet, mom/baby guide and name written on the communication board. Mother voiced understanding of information and will call if there is a request for assistance. Reported to the Primary RN.
[2025-05-13] MEDS: HYDROcodone/acetaminophen (*CRX) 5-325 MG TABLET 1 TAB PO ×3 (12:54→22:49)
[2025-05-13 20:00] VITALS: BP 110/77; PULSE 83; RESP 16; TEMP 36.6; O2SAT 99
[2025-05-14 08:00] VITALS: PULSE 74; RESP 16; O2SAT 98
[2025-05-14 08:05] VITALS: BP 105/62; PULSE 74; RESP 16; TEMP 36.9; O2SAT 98
--- NOTE | 2025-05-14 08:05 | P.PNOB_ITS ---
OB - PN: Subj Subjective Date/time seen: 05/14/25 08:05 Interval history: Post 2. Breast and bottle feeding. Patient desires discharge home. Complains of uterine cramping. OB - PN: Obj Data Labs 05/13/25 03:41 OB - PN A/P Plan day: 2 Plan: routine care and discharge home Time Spent With Patient Time: Total time spent is greater than 50% in coordination of care (as documented) at patient's floor/unit and/or counseling patient: Review of Systems 2 Review of Systems: All systems reviewed & are unremarkable except as noted in HPI and below Exam 2 Const: General: healthy appearing and alert Chest: Chest palpation & inspection: normal inspection of the chest Resp: Effort & Inspection: normal respiratory effort Skin: General skin exam: normal color Extrem: Right lower extremity: normal to inspection Left lower extremity: n ormal to inspection Psych: Appearance: well kempt
--- NOTE | 2025-05-14 08:09 | P.DS_ITS ---
DS: Admitting Diagnosis Discharge Date 05/14/2025 Admitting Diagnosis IOL DS: Discharge Diagnosis Discharge Diagnosis (1) Term delivered: Code(s): O80 - Encounter for full-term uncomplicated delivery Status: Acute OB - DS: Summary OB Procedures : None OB Procedures Intrapartum: Spontaneous Vag Delivery OB Procedures: : None Peripartum Data Laceration Description: Perineal - 1st Degree Episiotomy description: None Time Spent with Patient Time attestation: Total time spent providing and/or coordinating discharge services: Discharge Plan Discharge Attending physician on discharge: Dylon Snyder Consulting providers: Zita Licona Discharging Clinician: Zita Licona Patient Disposition: Home Activity: pelvic rest Diet: regular Patient Instructions: Antibiotic Form Patient Language: Prydeinig Stand Alone Forms: General Discharge Information Follow-up/Referrals: Zita Licona, LAVELLM [Certified Nurse Drafting Instructor, DROP WIRE HANGER] - 4 Weeks Discharge Medications: New hydrocodone-acetaminophen 5-325 mg Tablet 1 tablet PO Q4H PRN (Reason: Pain Rated 6 Or Greater) Qty: 25 0RF Continued acetaminophen [Tylenol Extra Strength] 500 mg tablet 1,000 mg PO Q6H PRN (Reason: fever or pain) Patient Comments: Pt took 1500 mg PNV no.95-ferrous fumarate-FA [] 28 mg iron- 800 mcg tablet 1 tablet PO DAILY Date of admission: 05/12/25 06:32 Primary Care Provider: PHYSICIAN,HOUSEKEEPING/LAUNDRY SUPERVISOR Admitting Provider: Dylon Snyder Attending physician on admission: Dylon Snyder Condition: Stable
[2025-05-14] MEDS: DOCUSATE SODIUM 100 MG CAPSULE PO (10:49)
[2025-05-14] MEDS: MULTIVIT/MIN/PREN/FOL AC/IRON TABLET 1 TAB PO (10:49)
[2025-05-14] MEDS: HYDROcodone/acetaminophen (*CRX) 5-325 MG TABLET 1 TAB PO (10:49)
--- NOTE | 2025-05-14 11:21 | PC.NURSE ---
Consulted with mother concerning needs and she shared her ability to independently latch infant optimally without pain. Mother is feeding appropriately for growth of and understands stimulating to eat if needed. Infant has had appropriate feedings in the last 24 hours meets the outcomes for weight, output, blood sugar and jaundice at this time. Reinforced understanding of milk production, transition of milk, signs of adequate intake, transition of stool, prevention/relief of engorgement, plugged ducts, mastitis, responsive watching for feeding cues, the different methods of stimulating to breastfeed 1-3 hours after the start of the last feeding, community resources, and when to call a provider using the resource of the feeding sheet along with the mom and baby guide. Mother voiced understanding of the information shared, is confident to continue effectively her infant at home, when to call for assistance, denies any additional assistance or education at this time. Reported to the Primary RN.
[2025-05-15 08:45] VITALS: BP 123/70; PULSE 80; RESP 20; TEMP 37; O2SAT 100
== END 2025-05-14 13:37 | disposition home or self-care (01) | DRG 807 ==
LOC: ANHLDR 06:37 → ANHOB2 14:08
PROVIDERS: Advanced Practice Midwife; Admitting Provider Obstetrics & Gynecology; Visit Provider Obstetrics & Gynecology
DX: O99.824 Streptococcus B carrier state complicating childbirth (principal); Z37.0 Single live birth; O70.0 First degree perineal laceration during delivery; O69.81X0 Labor and delivery complicated by cord around neck, without compression, not applicable or unspecified; Z3A.39 39 weeks gestation of pregnancy
CPT/HCPCS: 36415; 85014; 85018; 85025; 86593; 86850; 86900; 86901; A9270; J0290; J2590; J7120

== ENCOUNTER 2025-08-03 03:15 | Day surgery (SDC) | payer BC, MEDICAID, SELFPAY ==
[2025-07-29 13:58] VITALS: BMI 27.5
--- NOTE | 2025-07-29 14:05 | PC.NURSE ---
[facility] has started construction of its new state of the art ER which will open Spring 2026. With this, we anticipate parking may be a challenge for some our surgical patients and families. Parking spaces are limited but are available for all Surgical, obstetrics, and ER patients sharing this lot. If you arrive and find you are having a hard time finding a parking space, please note that we understand the challenges, please drive around the hospital and park near Hospital Entrance 1. When you enter this entrance, you can ask a volunteer to direct or take you back to the surgical waiting area to check in. We appreciate everyone?s understanding of these expected challenges while we build for your future. Report to the Outpatient Waiting Room, entrance under the green pavilion located off [address], at time _0600_ on date _[id number]_. Planned Procedure Time: _0730_.? Time changes happen often and if your time is changed the preop area will call you the afternoon before. - You and your visitor will be asked to self-screen and do not enter if you have any COVID symptoms. Please call surgeon if you need to reschedule. - A mask is optional within the hospital at this time. Patients may have clear liquids (water, carbonated beverages, clear teas, apple juice) until 3 hours prior to surgery with a maximum of 20 ounces. - No food from midnight until time of surgery and no smoking, or chewing tobacco (or any form of nicotine). No chewing gum, candy or mints. Take only the following medications with a SIP of water on the morning of surgery: ___None DO NOT STOP ANY OF YOUR OTHER PRESCRIPTION MEDICATIONS PRIOR TO SURGERY EXCEPT THE FOLLOWING Hold all vitamins and supplements for 3 days per anesthesiologist. Medications to discontinue per physician Date to take last ndrg___[id number]____ Please no make-up, nail sinhala, hairspray, perfume, deodorant, or body powder the day of surgery.? No jewelry (including any body piercings) or valuables the day of surgery, leave them at home.? Please take a shower or bath the night before, or the morning of, surgery with an antibacterial soap.? Wear comfortable, loose fitting clothing.? - Jewelry must be removed prior to entering the operating room.? Rings and piercings that are not removed may be cut off. - The hospital will not accept responsibility for valuables.? - Please leave all valuables, including medications, at home the day of surgery. If you are going home after surgery, a licensed driver engineer must drive you home.? - NO public transportation without another adult if you receive anesthesia. - We recommend that an adult stay with you for 24 hours following discharge. - We also recommend that you do not drive, make important decision, drink alcoholic beverages, or take any drugs that were not prescribed by your health care provider for at least 24 hours after your discharge time. Follow any additional instructions given to you from your surgeon. Telephone instructions given to ___T__and asked if any additional questions and then verbalized understanding. Patient advised to call surgeon office or pre surgery nurse liaison [phone] if any additional questions.
[2025-08-03] VITALS (8 sets, daily range): BP systolic 118–136; BP diastolic 76–96; PULSE 59–85; RESP 12–18; TEMP 36.2–36.6; O2SAT 98–100; BMI 26.5
[2025-08-03] MEDS: LACTATED RINGERS 1,000 ML 30 ML IV CONT (06:15)
[2025-08-03] MEDS: KETOROLAC 15 MG/ML VIAL (*BKC) IV PUSH (06:25)
[2025-08-03] MEDS: ACETAMINOPHEN 500 MG TABLET 1000 MG PO (06:25)
--- NOTE | 2025-08-03 07:11 | WPDANESEPPF ---
Anes - Initial Pre Proc Eval Procedure: Operation Date: 08/03/25 07:30 Proposed Procedures p Bilateral Laparoscopic Salpingectomy - Dylon Snyder MD Date/Time: 08/03/25 07:11 Surgeon: Dylon Snyder MD Pre Op Diagnosis: Desire Sterilization Patient Data Age: 30 Gender: F Height: 1.68 m Weight: 74.5 kg Last Vital Signs Temp 36.6 C 08/03/25 06:00 Pulse 77 08/03/25 06:00 Resp 16 08/03/25 06:00 BP 123/82 08/03/25 06:00 Pulse Ox 100 08/03/25 06:00 O2 Del Method Room Air 08/03/25 06:00 Allergies Allergy/AdvReac Type Severity Reaction Status Date / Time No Known Allergies Allergy Verified 08/03/25 06:37 Home Medications ?Medication ?Instructions ?Recorded ?Confirmed ?Type vit no.95-ferrous 1 tablet PO DAILY 02/02/25 08/03/25 History fumarate 28 mg-folic acid 800 mcg tablet () Lactobacillus 25 billion 1 cap PO DAILY 07/29/25 08/03/25 History cell-Bifido 25 billion [id number] capsule Patient hx anesthesia problems: none Family hx anesthesia problems: none Results Review: All pre-operative results and documents have been reviewed as part of the pre-operative evaluation. PENDING SALE TO [facility] Past Medical History Medical History GERD (gastroesophageal reflux disease) Family History Family History Grandparent Diabetes mellitus Hypertension Cerebrovascular accident Social History Social History Smoking status: Never smoker Second hand tobacco smoke exposure: No Alcohol intake: current Alcohol use details: TIME TO TIME OCCASIONAL-NONE SINCE BEFORE Substance use: never Lack of Transportation: No Lack of Food: Never True Current Housing: I Have Housing Concerned About Future Housing: No Difficulty Paying Gas/Electric Bills: No Difficulty Paying for Meds: No Currently Unemployed: No Education: High School Diploma/GED Difficulty w/ Childcare or Family Care: No Living arrangements: with family Additional living arrangements comments: Spiritual care concerns: No Anes - Eval Final PreProcedure Day of Procedure 08/03/25 07:11 Patient weight: overweight Heart: regular rate and rhythm Lungs: clear to auscultation Airway: Mallampati scale class III Neurological: alert and oriented Last oral intake: >/= 8 hours ASA classification: II Emergent: no Anesthetic plan: proceed Anesthesia type and monitoring: general ETT and standard monitoring Results Review: All pre-operative results and documents have been reviewed as part of the pre-operative evaluation. Informed Consent: The patient's anesthetic plan and its attendant risks and benefits were discussed with the patient/family/POA. Questions were solicited and answers provided to the satisfaction of the patient/family/POA.
--- NOTE | 2025-08-03 07:20 | PM.IMHP2 ---
H&P: HPI History of Present Illness Date/Time: 08/03/25 07:20 Chief Complaint: Unwanted fertility Narrative: This patient is a 30-year-old female with unwanted fertility. We agreed to perform laparoscopic bilateral salpingectomy. She understands risks, benefits, and alternatives. She has completed informed consent process is ready to proceed. The patient understands the details of the procedure. The procedure has been explained in detail. She understands the risks. She understands that injuries may occur that result in hospitalization, more surgery, and severe illness. She understands risk of hemorrhage and infection. She denies any chest pain or shortness of breath. She denies any nausea, vomiting, fever, chills. Review of Systems Review of Systems: All systems reviewed & are unremarkable except as noted in HPI and below Constitutional: Constitutional: Denies chills, Denies fatigue, Denies fever(s) and Denies weakness Eyes: Eyes: Denies blurry vision, Denies change in vision, Denies loss of peripheral vision, Denies loss of vision, Denies other visual disturbances and Denies eye pain ENT: Denies vertigo, Denies dizziness, Denies hearing loss, Denies mouth pain, Denies nasal obstruction, Denies neck mass and Denies neck pain Cardiovascular: Cardiovascular: Denies chest pain, Denies diaphoresis, Denies syncope, Denies leg edema and Denies dyspnea Respiratory: Respiratory: Denies chest congestion, Denies cough, Denies hemoptysis, Denies dyspnea and Denies wheezing Gastrointestinal: Gastrointestinal: Denies abdominal pain, Denies constipation, Denies diarrhea, Denies nausea and Denies vomiting Genitourinary: Genitourinary: Denies hematuria, Denies change in libido, Denies nocturia, Denies genital lesions, Denies flank pain and Denies urinary urgency Musculoskeletal: Musculoskeletal: Denies abnormal gait, Denies back pain, Denies myalgias, Denies arthralgias, Denies joint swelling, Denies muscle weakness and Denies neck pain Integumentary/Breasts: Skin/Breast: Denies swelling, Denies breast pain, Denies breast mass, Denies dry skin, Denies nipple discharge, Denies unusual bruising and Denies jaundice Neurologic: Denies Neuro-related abnormal movements, Denies Abnormal speech present, Denies abnormal gait, Denies behavioral changes, Denies confusion, Denies vertigo, Denies dizziness, Denies syncope, Denies loss of vision, Denies memory loss, Denies convulsions and Denies weakness Psychiatric: Psychiatric: Denies abnormal sleep pattern, Denies behavioral changes, Denies change in libido, Denies confusion, Denies depression, Denies anhedonia and Denies memory loss Endocrine: Endocrine: Reports no additional endocrine complaints, Denies change in libido and Denies fatigue Hematologic/Lymphatic: Hematologic/Lymphatic: Reports no additional hematologic/lymphatic complaints Allergic/Immunologic: Allergic/Immunologic: Reports no additional allergic/immunologic complaints and Denies wheezing PMFSH Past Medical History Medical History GERD (gastroesophageal reflux disease) Family History Family History Grandparent Diabetes mellitus Hypertension Cerebrovascular accident Social History Social History Smoking status: Never smoker Second hand tobacco smoke exposure: No Alcohol intake: current Alcohol use details: TIME TO TIME OCCASIONAL-NONE SINCE BEFORE Substance use: never Lack of Transportation: No Lack of Food: Never True Current Housing: I Have Housing Concerned About Future Housing: No Difficulty Paying Gas/Electric Bills: No Difficulty Paying for Meds: No Currently Unemployed: No Education: High School Diploma/GED Difficulty w/ Childcare or Family Care: No Living arrangements: with family Additional living arrangements comments: Spiritual care concerns: No Meds Home Medications and Allergies Home Medications ?Medication ?Instructions ?Recorded ?Confirmed ?Type vit no.95-ferrous 1 tablet PO DAILY 02/02/25 08/03/25 History fumarate 28 mg-folic acid 800 mcg tablet () Lactobacillus 25 billion 1 cap PO DAILY 07/29/25 08/03/25 History cell-Bifido 25 billion [id number] capsule Allergies Allergy/AdvReac Type Severity Reaction Status Date / Time No Known Allergies Allergy Verified 08/03/25 06:37 Vital Signs Vital Signs - 24 hr 08/03/25 06:00 Temperature 97.8 F Pulse Rate 77 Respiratory Rate 16 Blood Pressure 123/82 Pulse Oximetry 100 Oxygen Delivery Room Air Exam Const: General: cooperative, healthy appearing, comfortable and no acute distress Orientation/consciousness: oriented to person, oriented to place and oriented to time HENMT: Head: normal to inspection Ears: external ears normal Face/Nose/Sinus: Normal external nose present and normal facial exam Face and sinus: normal facial exam Eyes: General: appearance normal, both eyes and all related structures Neck: Neck: normal visual inspection, trachea midline and supple Resp: Auscultation: clear to auscultation bilaterally, no crackles, no rales, no rhonchi and no wheezes Cardio: Rate: regular rate Rhythm: regular rhythm Heart sounds: no click, no murmurs and no rubs GI: GI Palp: No abdominal tenderness, No Soft to palpation, No Tenderness to palpation present (GI) and No Palpable mass present Auscultation: normal bowel sounds Skin: General skin exam: normal color and no rashes or lesions noted Neuro: General: oriented to person, oriented to place and oriented to time Extrem: General: normal to inspection, no joint enlargement, no clubbing, cyanosis or edema, no pedal edema and no calf tenderness Psych: Appearance: grossly normal Mental Status: mental status grossly normal Speech and movement: Normal speech and movement present Assessment and Plan Assessment and plan (1) Unwanted fertility: Code(s): Z30.09 - Encounter for other general counseling and advice on contraception Status: Acute Plan This patient is a 30-year-old female with unwanted fertility. We agreed to perform laparoscopic bilateral salpingectomy. She understands risks, benefits, and alternatives. She has completed informed consent process is ready to proceed.
--- NOTE | 2025-08-03 07:21 | WPDHPUPDATE1 ---
History and Physical Update Update Date/Time: 08/03/25 07:21 History and Physical has been reviewed, including an updated exam of the patient. There are NO changes in the patient's condition. Risks, benefits, and alternatives have been discussed and questions answered. Patient agrees to proceed with procedure.
[2025-08-03] MEDS: SCOPOLAMINE 1 MG PATCH 1 PATCH TRANSDERM (07:22)
[2025-08-03 07:40] LABS: BEDSIDEPREGUCG Negative (Negative)
--- NOTE | 2025-08-03 08:00 | S_PTH ---
PATIENT: Anai Harding LOC: [facility] U#:[id number] AGE/SX: 30/F ROOM: RE08/03/[address]: Dylon Snyder MD : 1995 BED: DIS: 08/03/2025 SPEC #: [id number] RECD: 08/03/25 09:40 STATUS: LESLY REAdolfo #: [id number] SHONDA: 08/03/25 08:[address]: Dylon Snyder DEPT: [facility] Surgical RECD BY: Lazaro Ellsworth ENTERED: 08/03/25 09:41 SP TYPE: Surgical OTHR DR: Kiesha Casillas, RN SPINE Tissues: A - Fallopian Tube Bilateral Procedures: Gross and Microscopic Level 2 Hematoxylin and Eosin Stain
[2025-08-03] MEDS: oxyCODONE HCL (*CRX) 5 MG TAB IR PO (09:27)
--- NOTE | 2025-08-03 09:41 | P.OP_ITS ---
Procedure Note - Detailed Date of Procedure 08/03/25 Pre-op Diagnosis Desire Sterilization Post-op Diagnosis Same Procedure Performed Laparoscopic bilateral salpingectomy Surgeon Dylon Snyder MD Anesthesia General Indications Unwanted fertility Findings Normal pelvic anatomy Description of Procedure The patient was taken the operating room. She was prepped and draped in the dorsal lithotomy position after induction of general anesthesia. A 5 mm skin incision was made in the left upper quadrant of the abdominal skin. A 5 mm trocar was inserted the intra-abdominal cavity under direct visualization of the scope. Pneumoperitoneum was achieved. A 5 mm trocar was inserted in the left lower quadrant identical fashion. A 5 mm infraumbilical trocar was inserted in identical fashion as well. The bilateral fallopian tubes were removed. This was done by using a LigaSure cautery. The mesosalpinx adjacent to the tube was cauterized transected with LigaSure. This was initiated in the area the ovary and in a stepwise fashion moved medially to the area of the cornu of the uterus. Once there the fallopian tube was cauterized and transected. This was done in identical fashion on each side. The fallopian tubes were taken out through the left lower quadrant trocar site. The pneumoperitoneum was reduced. The trocars removed. The skin was closed with subcuticular 4 Monocryl and covered with De rmabond. She was taken to cover stable condition. Sponge lap and needle counts were correct x2. Estimated Blood Loss 5 Drains No Packing No Pathology Yes Complications No immediate complications Condition Stable Disposition PACU
== END 2025-08-03 10:37 | disposition home or self-care (01) ==
PROVIDERS: Visit Provider Obstetrics & Gynecology
PROC: (CPT 49320; principal; 2025-08-03 07:30)
DX: Z30.2 Encounter for sterilization (principal)
CPT/HCPCS: 58661; 88302; A9270; J1100; J1885; J2003; J2250; J2405; J2704; J3010; J7120